=== PATIENT | female | born 1965 | race Caucasian/White ===

== ENCOUNTER 2016-10-08 09:52 | Inpatient (IN) | payer OTHER ==
[2016-10-08] VITALS (40 sets, daily range): BP systolic 88–300; BP diastolic 49–300; PULSE 110–168; TEMP 36.4–37; O2SAT 98–100; Ht 154.9 cm; Wt 44.9 kg
[~2016-10-08] VITALS: Ht 154.9 cm; Wt 44.9 kg
[~2016-10-08 09:52] MED LIST: ADVIN25/60 INH; ALBINS/ INH; ALBU1AER9 INH; ATRINSX IN; BRIM0.15 OPL; CALC200T PO; CRD30 PO; DORZ1SOL6 OPB; IPRA1AER2 INH; MIRT15TA3 PO; OXYC-106 PO; POTA20TA16 PO; PRED1SUS3 OPB
[2016-10-08] MEDS ORDERED: MAGNESIUM SULFATE 1GM / D5W 1 GM BAG IV STA (09:59)
[2016-10-08] MEDS ORDERED: ALBUT/IPRATROP 3MG/0.5MG NEB 3 ML VIAL INH ONE (10:00)
[2016-10-08] MEDS ORDERED: DILTIAZEM HCL 5 MG/ML 5 ML VIAL IV STA (10:01)
[2016-10-08] MEDS ORDERED: LEVAQUIN 750MG / 150ML D5W IV STA (10:08)
--- NOTE | 2016-10-08 10:18 | DIAGNOSTIC IMAGING REPORT ---
SINGLE VIEW CHEST CLINICAL HISTORY: Respiratory failure. FINDINGS: An AP, portable, upright chest radiograph is obtained. No prior studies are available for comparison at the time of dictation. The examination is degraded by portable technique and patient rotation. The cardiomediastinal silhouette is unremarkable. There is atherosclerotic calcification of the thoracic aorta. Advanced emphysema is identified and there is extensive interstitial thickening and nodularity. More focal airspace consolidation is identified in the left upper lung. Airspace opacities are also seen in the right lower lung. No large pleural effusion or pneumothorax is seen. The skeletal structures appear osteopenic. The bony thorax is grossly intact. The patient is cachectic. A nipple shadow projects over the right midlung. IMPRESSION: 1. Severe emphysema. 2. Focal airspace consolidation is seen in the left midlung, and there are patchy airspace opacities at the right lung base. The appearance suggests multifocal pneumonia. Clinical correlation will be required and radiographic follow-up to resolution is recommended. Electronically signed by: Colten Esqueda M.D. 10/08/2016 10:16 AM Dictated Date/Time: 10/08/2016 10:14 AM
--- NOTE | 2016-10-08 10:25 | EMERGENCY ROOM VISIT NOTE ---
History Report prepared by Duane: Elvira Paige Under the Supervision of: Dr. Alice Isidro M.D. First contact with patient: 09:59 Chief Complaint: RESPIRATORY DISTRESS Stated Complaint: RESPIRATORY History of Present Illness The patient is a 51 year old female who presents to the Emergency Room with complaints of persistent respiratory distress that began prior to arrival. Per the patient's , the patient is a current smoker of one pack per day. He notes that the patient has been a smoker since she was 15 years old. The patient's denies the patient ever having a previous [place], but notes that she has a history of COPD and MS. Per EMS the patient was given 2 albuterol nebulizer treatments, 1 DuoNeb, 125 mg of Solu-Medrol, and 200 cc of normal saline. The patient was placed on BiPAP upon arrival to the emergency department and given an hour long nebulizer treatment. The patient's notes that the patient has had several sick contacts recently, but denies her having any fever. He denies the patient wearing oxygen at home. The patient's notes that the patient has a history of hypertension and states that she is on medication for it. Source of History: spouse/significant other (), EMS Onset: prior to arrival Position: other (global) Quality: other (respiratory distress) Timing: other (persistent) Associated Symptoms: No fevers Review of Systems See HPI for pertinent positives & negatives. A total of 10 systems reviewed and were otherwise negative. Past Medical & Surgical Medical Problems: (1) Acute hypercapnic respiratory failure (2) Cardiomyopathy (3) Decubitus ulcer of back (4) History of COPD (5) HTN (hypertension) (6) Hypophosphatemia (7) Left maxillary sinus opacification (8) Multiple sclerosis (9) Prolonged Q-T interval on ECG (10) Protein-calorie malnutrition, moderate (11) Rectal mucosa prolapse (12) Respiratory acidosis Surgical Problems: (1) History of left hip replacement Family History No pertinent family history stated. Social History Smoking Status: Current Every Day Smoker Marital Status: Housing Status: lives with significant other Current/Historical Medications Scheduled Acetazolamide (Diamox), 500 MG PO DAILY Brimonidine Tartrate Oph (Alphagan P Oph), 1 DROP OPL BID Calcium Carbonate-Vitamin D (Oscal 500/200 D-3), 1 TAB PO DAILY Diltiazem HCl (Diltiazem HCl), 30 MG PO BID Dorzolamide Hcl-Timolol Maleat (Cosopt Oph), 1 DROP OPB BID Fluticasone Prop/Salmeterol (Advair Diskus 250/50 60 Dose), 1 PUFF INH BID Ipratropium-Albuterol (Combivent Respimat), 1 PUFFS INH QID Potassium Ext Rel (Klor-Con), 20 MEQ PO BID Prednisolone Acetate 1% Oph (Pred Forte 1% Oph), 1 DROP OPB BID Scheduled PRN Albuterol (Proair Hfa), 2 PUFFS INH Q4 PRN for SOB/Wheezing Albuterol Sulf (Proventil 0.083% 2.5MG/3ML), 2.5 MG INH Q4 PRN for Wheezing Ipratropium [place] (Atrovent 0.02% Soln), 2.5 ML IN QID PRN for SOB/Wheezing Oxycodone/Acetaminophen 10MG/325MG (Percocet 10MG/325MG), 1 TAB PO Q4 PRN for Pain Allergies Coded Allergies: No Known Allergies (Unverified , 02/12/16) Physical Exam Vital Signs Date Time Temp Pulse Resp B/P Pulse Ox O2 Delivery O2 Flow Rate FiO2 10/08/16 11:18 156 22 87 10/08/16 11:13 127/99 10/08/16 11:07 157 30 94 10/08/16 10:58 137/114 10/08/16 10:55 123/100 10/08/16 10:52 163 23 89 10/08/16 10:37 164 22 100 10/08/16 10:30 162 21 136/94 100 BiPAP 10/08/16 10:30 168 60 10/08/16 10:29 136/94 10/08/16 10:22 162 21 100 10/08/16 10:16 160 24 170/57 96 BiPAP 10/08/16 10:13 170/157 10/08/16 10:13 159 22 98 BiPAP 10/08/16 10:07 152 22 10/08/16 10:01 151/113 10/08/16 09:59 154 10/08/16 09:55 166 22 BiPAP/CPAP 100 10/08/16 09:55 165 22 176/156 93 BiPAP 10/08/16 09:55 166 100 Physical Exam Vital signs reviewed. General: Cachectic appearing female, in respiratory distress. Somnolent. Dusky in appearance. HEENT: No scleral icterus, PERRLA, neck supple. Atraumatic. Cardiovascular: Regular rate and rhythm, no extra sounds. Pulmonary: Diminished breath sounds throughout, wheezes. Abdomen: Soft, nontender, nondistended, positive bowel sounds. Musculoskeletal: Atraumatic, no peripheral edema. Neurologic: Patient awake alert and oriented x 3, full strength in all 4 extremities. Cranial nerves 2 through 12 grossly intact. Skin: Warm, dry, no rash Medical Decision & Procedures ER Provider Diagnostic Interpretation: X-ray results as stated below per interpretation by me and the radiologist: SINGLE VIEW CHEST CLINICAL HISTORY: Respiratory failure. FINDINGS: An AP, portable, upright chest radiograph is obtained. No prior studies are available for comparison at the time of dictation. The examination is degraded by portable technique and patient rotation. The cardiomediastinal silhouette is unremarkable. There is atherosclerotic calcification of the thoracic aorta. Advanced emphysema is identified and there is extensive interstitial thickening and nodularity. More focal airspace consolidation is identified in the left upper lung. Airspace opacities are also seen in the right lower lung. No large pleural effusion or pneumothorax is seen. The skeletal structures appear osteopenic. The bony thorax is grossly intact. The patient is cachectic. A nipple shadow projects over the right midlung. IMPRESSION: 1. Severe emphysema. 2. Focal airspace consolidation is seen in the left midlung, and there are patchy airspace opacities at the right lung base. The appearance suggests multifocal pneumonia. Clinical correlation will be required and radiographic follow-up to resolution is recommended. Electronically signed by: Colten Esqueda M.D. 10/08/2016 10:16 AM Dictated Date/Time: 10/08/2016 10:14 AM Laboratory Results Test 10/08/16 10:03 10/08/16 10:05 10/08/16 11:11 Bedside Lactic Acid Venous 2.09 mmol/L (0.90-1.70) Immature Granulocyte % (Auto) 0.3 % White Blood Count 15.11 K/uL (4.8-10.8) Red Blood Count 4.32 M/uL (4.2-5.4) Hemoglobin 14.2 g/dL (12.0-16.0) Hematocrit 43.0 % (37-47) Mean Corpuscular Volume 99.5 fL (80-100) Mean Corpuscular Hemoglobin 32.9 pg (25-34) Mean Corpuscular Hemoglobin Concent 33.0 g/dl (32-36) Platelet Count 565 K/uL (130-400) Mean Platelet Volume 9.1 fL (7.4-10.4) Neutrophils (%) (Auto) 73.0 % Lymphocytes (%) (Auto) 19.8 % Monocytes (%) (Auto) 6.6 % Eosinophils (%) (Auto) 0.1 % Basophils (%) (Auto) 0.2 % Neutrophils # (Auto) 11.04 K/uL (1.4-6.5) Lymphocytes # (Auto) 2.99 K/uL (1.2-3.4) Monocytes # (Auto) 0.99 K/uL (0.11-0.59) Eosinophils # (Auto) 0.02 K/uL (0-0.5) Basophils # (Auto) 0.03 K/uL (0-0.2) Immature Granulocyte # (Auto) 0.04 K/uL (0.00-0.02) Prothrombin Time 11.2 SECONDS (9.0-12.0) Prothromb Time International Ratio 1.0 (0.9-1.1) Direct Bilirubin < 0.1 mg/dl (0-0.2) Total Creatine Kinase 170 U/L (26-192) Bedside Chloride 107 mEq/L (101-112) Bedside Total CO2 31 mEq/l (24-31) Bedside Blood Urea Nitrogen 19 mg/dl (7-18) Bedside Creatinine 0.6 mg/dl (0.6-1.3) Bedside Glucose (other) 261 mg/dl (70-99) Bedside Ionized Calcium (Aury) 1.14 mmol/l (1.12-1.32) Laboratory results per my review. Medications Administered Medications (Trade) Dose Ordered Sig/Rajan Route Start Time Stop Time Status Last Admin Dose Admin Albuterol/ Ipratropium (Duoneb) 12 ml ONE ONCE INH 10/08/16 10:00 10/08/16 10:02 DC 10/08/16 09:55 12 ML Magnesium Sulfate (Magnesium Sulfate) 2 gm NOW STAT IV 10/08/16 09:59 10/08/16 10:02 DC 10/08/16 10:00 2 GM Diltiazem HCl (Cardizem Inj) 10 mg NOW STAT IV 10/08/16 10:01 10/08/16 10:02 DC 10/08/16 10:04 10 MG Levofloxacin (Levaquin / D5W) 750 mg NOW STAT IV 10/08/16 10:08 10/08/16 10:10 DC 10/08/16 10:25 750 MG Sodium Bicarbonate (Sodium Bicarbonate 8.4% Inj) 100 ml STK-MED ONCE IV 10/08/16 10:51 10/08/16 10:53 DC 10/08/16 10:51 100 ML Sodium Bicarbonate (Sodium Bicarbonate 8.4% Inj) 100 ml STK-MED ONCE IV 10/08/16 11:02 10/08/16 11:04 DC 10/08/16 11:02 100 ML Methylprednisolone Sodium Succinate (Solu-Medrol IV) 125 mg NOW STAT IV 10/08/16 11:19 10/08/16 11:25 DC 10/08/16 12:22 125 MG ECG Indication: SOB/dyspnea Rate (beats per minute): 156 Rhythm: sinus tachycardia Findings: ST depression (Anterolateral), no ectopy, other (poor quality baseline for interpretation, rightward axis) ED Course 0952: Past medical records reviewed. The patient was evaluated in room B1. A complete history and physical examination was performed. 0959: Ordered Magnesium Sulfate 2 gm IV, Duoneb 12 ml INH, Cardizem Inj 10 mg IV. 1000: I spoke to the patient's about care measures. He states that they never talked about her wishes, but he believes that she would want to be intubated. 1008: Ordered Levofloxacin 750 mg IV. 1026: I discussed the patients case with Dr. Mcfarland, Intensive Care. He is going to come to the emergency department to assist with placing the patient on ventilation. 1027: I reevaluated the patient and she is on BiPAP. I discussed the plan with the patients . 1031: Dr. Mcfarland, Intensive Care arrived in the emergency department at this time. 1035: The [facility]ist team is going to evaluate the patient for further treatment. 1038: I spoke to Dr. Mcfarland, Intensive Care about the patient. 1045: I discussed the patients case with Dr. Traylor, Primary Care. 1051: Ordered Sodium Bicarbonate 100 ml IV. 1102: Ordered Sodium Bicarbonate 100 ml IV. Medical Decision Differential diagnosis: Etiologies such as infections, reactive airway disease, pneumonia, pneumothorax , COPD, CHF, cardiac ischemia, pulmonary embolism, musculoskeletal, gastrointestinal, as well as others were entertained. This pt was evaluated and appeared to be in no distress. IV access was obtained by EMS. 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 Pt was placed on bipap. A continuous nebulizer was started through bipap. Pt was given magnesium IV. Pt received solu-medrol 125 mg IV en route. Pt was given IVF. CXR reveals patchy bilateral infiltrates , lactate is 2.09 and troponin is >8. Pt is positive for influenza A. Pt was medicated with IV levaquin. EKG reveals a sinus tachycardia, but no STEMI. ABG was obtained on arrival and pt was noted to be markedly acidotic and hypercapnic. A stat critical care consult with Dr Mcfarland was placed as emergent intubation was felt to be high risk and expert ventilation management would be needed. Family was notified that the pt was critically ill and condition is tenuous. Critical care was at the bedside to take over care. Consults Time Called: [phone] Consulting Physician: Dr. Mcfarland, Intensive Care Returned Call: [phone] I discussed the patients case with Dr. Mcfarland, Intensive Care. He is going to come to the emergency department to assist with placing the patient on ventilation. Additional Consults: Time Called: 1033 Consulted Physician: [facility]ist Team Returned Call: [phone] Additional Comments: The [facility] Hospitalist team is going to evaluate the patient for further treatment. Impression Primary Impression: Respiratory failure Additional Impressions: Elevated troponin COPD exacerbation Pneumonia CO2 narcosis Critical Care I have personally spent greater than 60 minutes of critical care time in the direct management of this patient. This includes bedside care, interpretation of diagnostic studies, and testing, discussion with consultants, patient, and family members, and other required patient management activities. This 60 minutes is in excess of all separately billable procedures. Scribe Attestation The scribe's documentation has been prepared under my direction and personally reviewed by me in its entirety. I confirm that the note above accurately reflects all work, treatment, procedures, and medical decision making performed by me. Departure Information Dispostion Being Evaluated By Hospitalist Referrals No Doctor, Assigned (PCP) Problem Qualifiers Primary Impression: Respiratory failure Chronicity: acute Respiratory failure complication: hypercapnia Qualified Codes: J96.02 - Acute respiratory failure with hypercapnia Additional Impressions: Pneumonia Pneumonia type: due to unspecified organism Laterality: bilateral
[2016-10-08] MEDS ORDERED: SODIUM BICARB 8.4% INJ 50 MEQ/50 ML SYR IV ONE ×3 (10:51→12:37)
[2016-10-08 11:15] LABS: MEAN PLATELET VOLUME 9.1 fL (7.4-10.4); PLATELET COUNT 565 K/uL (130-400)
[2016-10-08] MEDS ORDERED: METHYLPREDNISOLONE 125 MG VIAL IV STA (11:19)
[2016-10-08 11:23] LABS: PROTHROMBIN TIME (PATIENT) 11.2 SECONDS (9.0-12.0)
[2016-10-08 11:24] LABS: PARTIAL THROMBOPLASTIN RATIO 1.1
[2016-10-08 11:25] LABS: ALT/SGPT 30 U/L (12-78); AST/SGOT 42 U/L (15-37); BLOOD UREA NITROGEN 17 mg/dl (7-18); BUN/CREATININE RATIO 26.4 (10-20); CALCIUM 8.6 mg/dl (8.5-10.1); CARBON DIOXIDE 24 mmol/L (21-32); CHLORIDE 113 mmol/L (98-107); CREATININE 0.63 mg/dl (0.60-1.20); GLUCOSE 176 mg/dl (70-99); POTASSIUM 3.6 mmol/L (3.5-5.1); SODIUM 144 mmol/L (136-145)
[2016-10-08 11:29] LABS: MEAN CELL VOLUME 99.5 fL (80-100); MEAN CORPUSCULAR HEMOGLOBIN 32.9 pg (25-34); RED BLOOD COUNT 4.32 M/uL (4.2-5.4); WHITE BLOOD COUNT 15.11 K/uL (4.8-10.8)
[2016-10-08] MEDS ORDERED: [UNRECOGNIZED DRUG - MIXTURE] IV SCH (11:30)
[2016-10-08] MEDS ORDERED: NOREPINEPHRINE BITARTRATE 1 MG/ML 4 ML VIAL ONE ×2 (11:32→11:38)
[2016-10-08 11:39] LABS: ISTAT CREATININE 0.6 mg/dl (0.6-1.3); ISTAT HEMOGLOBIN 13.3 g/dl (12.0-16.0); ISTAT IONIZED CALCIUM 1.14 mmol/l (1.12-1.32)
[2016-10-08 11:39] LABS: ALKALINE PHOSPHATASE 110 U/L (45-117); CKMB/CK RATIO 3.5 (0-3.0)
[2016-10-08] MEDS ORDERED: NOREPINEPHRINE BIT INJ 8 MG in DEXTROSE 5% 500ML 500 ML IV PRN (11:45)
[2016-10-08 11:46] LABS: ISTAT CREATININE 0.5 mg/dl (0.6-1.3); ISTAT IONIZED CALCIUM 1.1 mmol/l (1.12-1.32)
[2016-10-08 11:46] LABS: ISTAT ARTERIAL BLOOD GAS HCO3 21 meq/L (19-24); ISTAT ARTERIAL BLOOD GAS PCO2 89 mmHg (35-46); ISTAT ARTERIAL BLOOD GAS PO2 > 420 mmHg (80-95); ISTAT ARTERIAL BLOOD GAS pH 6.99 (7.35-7.45); ISTAT CARBON DIOXIDE 24 mEq/l (24-31)
[2016-10-08 11:54] LABS: BASO % 0.2 %; BASO ABS # 0.03 K/uL (0-0.2); COMPLETE YES; EOS % 0.1 %; IG% 0.3 %; LYMPH % 19.8 %; LYMPH ABS # 2.99 K/uL (1.2-3.4); MONO % 6.6 %
[2016-10-08] MEDS: MIDAZOLAM 125MG/250ML D5W 250 ML IV PRN (12:02)
[2016-10-08] MEDS ORDERED: FENTANYL CITRATE INJ 50 MCG/1 ML 2 ML VIAL IV STA (12:02)
[2016-10-08 12:49] LABS: ARTERIAL BLD GAS O2 SATURATION 96.5 % (90-95); ARTERIAL BLOOD GAS BASE EXCESS 0.3 mEq/L (-9-1.8); ARTERIAL BLOOD GAS HCO3 34 mmol/L (19-24); ARTERIAL BLOOD GAS PO2 121 mm/Hg (80-95)
[2016-10-08 12:51] LABS: O2 ADMINISTRATION 60%
[2016-10-08] MEDS ORDERED: TERBUTALINE SULFATE 1 MG/ML VIAL SQ STA (13:08)
[2016-10-08 13:09] LABS: ARTERIAL BLOOD GAS pH 7.03 (7.35-7.45)
[2016-10-08] MEDS ORDERED: MAGNESIUM SULFATE 40GM / WTR 1000 ML IV SCH (13:15)
--- NOTE | 2016-10-08 13:34 | Critical Care Consultation ---
Critical Care Consultation Date of Consultation: Oct 08, 2016. Attending Physician: Sobia Akers M.D. Reason for Consultation: Acidosis History of Present Illness Juana Mak is a 51-year-old female with a history COPD, pulmonary nodules, hypertension, glaucoma, multiple sclerosis, cachexia, presented to the emergency department today via EMS after telling her "I need oxygen." states that she was in her normal health previously and is shocked by how quickly she has declined. Dr. Mcfarland was called by the emergency department for a patient on BiPAP with a pH of 6.9. We arrived and there was much family discussion on the resuscitation desires of this patient. Family decided to keep her full code and give her the best chance they could. Dr. Mcfarland spent a significant amount of time trying to normalize this patient's pH as much as possible prior to intubation. Patient received 2 amps of bicarbonate as well as a Negra drip, an alkalizing agent. Prior to intubation the patient was not oriented and could not be asked questions reliably. She was intubated using 1 mg of Versed and 10mg Vecuronium. Immediately after the ET tube was placed vecuronium was given. Patient tolerated intubation well , her blood pressures remained low but stable. While Levophed was hanging at bedside; the patient did not require any pressors. She underwent both central and arterial line placement in the right groin and then was transferred to the ICU. Family History Father's Hx is unknown Mother of [place] Social History Smoking Status: Current Every Day Smoker (1pack/day, since 15yo) Smokeless Tobacco Use: No Alcohol Use: none Marital Status: Housing Status: lives with significant other Allergies Coded Allergies: No Known Allergies (Unverified , 02/12/16) Home Medications Scheduled Acetazolamide (Diamox), 500 MG PO DAILY Brimonidine Tartrate Oph (Alphagan P Oph), 1 DROP OPL BID Calcium Carbonate-Vitamin D (Oscal 500/200 D-3), 1 TAB PO DAILY Diltiazem HCl (Diltiazem HCl), 30 MG PO BID Dorzolamide Hcl-Timolol Maleat (Cosopt Oph), 1 DROP OPB BID Fluticasone Prop/Salmeterol (Advair Diskus 250/50 60 Dose), 1 PUFF INH BID Ipratropium-Albuterol (Combivent Respimat), 1 PUFFS INH QID Potassium Ext Rel (Klor-Con), 20 MEQ PO BID Prednisolone Acetate 1% Oph (Pred Forte 1% Oph), 1 DROP OPB BID Scheduled PRN Albuterol (Proair Hfa), 2 PUFFS INH Q4 PRN for SOB/Wheezing Albuterol Sulf (Proventil 0.083% 2.5MG/3ML), 2.5 MG INH Q4 PRN for Wheezing Ipratropium [place] (Atrovent 0.02% Soln), 2.5 ML IN QID PRN for SOB/Wheezing Oxycodone/Acetaminophen 10MG/325MG (Percocet 10MG/325MG), 1 TAB PO Q4 PRN for Pain Current Inpatient Medications Current Inpatient Medications Medications (Trade) Dose Ordered Sig/Rajan Route Start Time Stop Time Status Last Admin Dose Admin Norepinephrine Bitartrate 8 mg/ Dextrose 508 ml @ 0 mls/min Q0M PRN IV 10/08/16 11:45 11/07/16 11:44 Midazolam HCl 250 ml @ 0 mls/hr Q0M PRN IV 10/08/16 12:00 11/07/16 11:59 10/08/16 12:02 4 MLS/HR Magnesium Sulfate (Magnesium Sulfate) 1,000 ml @ 50 mls/hr Q20H IV 10/08/16 13:15 11/07/16 13:14 Miscellaneous Information 1 ea 1 ea NOW STAT N/A 10/08/16 13:23 10/08/16 13:24 UNV Piperacillin Sod/ Tazobactam Sod/ Dextrose (Zosyn Iv/D5 100ml) 115 ml @ 230 mls/hr NOW ONCE IV 10/08/16 13:45 10/08/16 14:14 Review of Systems Could not be obtained secondary to patient's condition, sedation, and intubation. Physical Exam Date Time Temp Pulse Resp B/P Pulse Ox O2 Delivery O2 Flow Rate FiO2 10/08/16 12:58 126 95/64 99 Mechanical Ventilator 10/08/16 12:56 107/58 10/08/16 12:43 104/80 10/08/16 12:28 98/73 10/08/16 12:23 93/71 10/08/16 12:18 130 21 97 10/08/16 12:13 87/67 10/08/16 12:11 87/64 10/08/16 12:05 85/62 10/08/16 11:58 97/73 10/08/16 11:56 100/74 10/08/16 11:48 148 21 94/75 10/08/16 11:44 103/74 10/08/16 11:43 99/80 10/08/16 11:42 117/89 10/08/16 11:36 115/87 10/08/16 11:29 155 10/08/16 11:28 123/97 10/08/16 11:23 36.6 10/08/16 11:18 156 22 87 10/08/16 11:13 127/99 10/08/16 11:07 157 30 94 10/08/16 10:58 137/114 10/08/16 10:55 123/100 10/08/16 10:52 163 23 89 10/08/16 10:37 164 22 100 10/08/16 10:30 162 21 136/94 100 BiPAP 10/08/16 10:30 168 60 10/08/16 10:29 136/94 10/08/16 10:22 162 21 100 10/08/16 10:16 160 24 170/57 96 BiPAP 10/08/16 10:13 170/157 10/08/16 10:13 159 22 98 BiPAP 10/08/16 10:07 152 22 10/08/16 10:01 151/113 10/08/16 09:59 154 10/08/16 09:55 166 22 BiPAP/CPAP 100 10/08/16 09:55 165 22 176/156 93 BiPAP 10/08/16 09:55 166 100 Vital Signs - as noted Laboratory Data - as noted Physical Exam: General - Intubated, Cachectic Eyes -Pupils equal, no response to light, Left eye hazy ENT - Mucosa moist, no lesions or candidiasis Neck - Supple, trachea midline, no masses or lymphadenopathy, no JVD or bruits Lungs - No paradoxical chest wall movement, coarse to auscultation bilaterally, Rhonchi noted throughout, Wheezing note on upper right long, Crackles not noted Heart - Sinus Tachy, No murmur, rubs, clicks, or gallops appreciated Abdomen - no BS present, no bruits noted, tympanic to percussion, soft, nontender, Moderately distended, no organomegaly Extremities - No edema, pedal pulses intact Neuro - A&OX0 Strength: Could not be assessed Reflexes: Bicep, brachioradialis, patellar, and plantar absent CN:Pupils unresponsive to light,no facial asymmetry, uvula/tongue midline(prior to intubation) Laboratory Results Last 24 Hours Test 10/08/16 10:03 10/08/16 10:05 10/08/16 10:08 10/08/16 10:19 Bedside Lactic Acid Venous 2.09 mmol/L White Blood Count 15.11 K/uL Red Blood Count 4.32 M/uL Hemoglobin 14.2 g/dL Hematocrit 43.0 % Mean Corpuscular Volume 99.5 fL Mean Corpuscular Hemoglobin 32.9 pg Mean Corpuscular Hemoglobin Concent 33.0 g/dl Platelet Count 565 K/uL Mean Platelet Volume 9.1 fL Neutrophils (%) (Auto) 73.0 % Lymphocytes (%) (Auto) 19.8 % Monocytes (%) (Auto) 6.6 % Eosinophils (%) (Auto) 0.1 % Basophils (%) (Auto) 0.2 % Neutrophils # (Auto) 11.04 K/uL Lymphocytes # (Auto) 2.99 K/uL Monocytes # (Auto) 0.99 K/uL Eosinophils # (Auto) 0.02 K/uL Basophils # (Auto) 0.03 K/uL RDW Standard Deviation 49.4 fL RDW Coefficient of Variation 13.6 % Immature Granulocyte % (Auto) 0.3 % Immature Granulocyte # (Auto) 0.04 K/uL Prothrombin Time 11.2 SECONDS Prothromb Time International Ratio 1.0 Activated Partial Thromboplast Time 29.8 SECONDS Partial Thromboplastin Ratio 1.1 Sodium Level 144 mmol/L Potassium Level 3.6 mmol/L Chloride Level 113 mmol/L Carbon Dioxide Level 24 mmol/L Anion Gap 7.0 mmol/L 15.0 mmol/L Blood Urea Nitrogen 17 mg/dl Creatinine 0.63 mg/dl Estimated GFR () 122.1 Estimated GFR (Non- 105.3 BUN/Creatinine Ratio 26.4 Random Glucose 176 mg/dl Calcium Level 8.6 mg/dl Magnesium Level 2.0 mg/dl Total Bilirubin 0.1 mg/dl Direct Bilirubin < 0.1 mg/dl Aspartate Amino Transf (AST/SGOT) 42 U/L Alanine Aminotransferase (ALT/SGPT) 30 U/L Alkaline Phosphatase 110 U/L Total Creatine Kinase 170 U/L Creatine Kinase MB 6.0 ng/ml Creatine Kinase MB Ratio 3.5 Troponin I 8.260 ng/ml Total Protein 7.5 gm/dl Albumin 3.1 gm/dl Bedside Hemoglobin 16.0 g/dl Bedside Hematocrit 47 % Bedside Sodium 142 mEq/L Bedside Potassium 5.4 mEq/L Bedside Chloride 112 mEq/L Bedside Total CO2 21 mEq/l Bedside Blood Urea Nitrogen 19 mg/dl Bedside Creatinine 0.5 mg/dl Bedside Glucose (other) 163 mg/dl Bedside Ionized Calcium (Aury) 1.10 mmol/l Bedside Blood Gas pH (LAB) 6.99 Bedside Blood Gas pCO2 (LAB) 89 mmHg Bedside Blood Gas pO2 (LAB) > 420 mmHg Bedside Blood Gas HCO3 (LAB) 21 meq/L Bedside Blood Gas Total CO2 24 mEq/l Bedside Blood Gas Base Excess (LAB) -10.0 meq/L Bedside Blood Gas O2 Saturation 100.0 % Test 10/08/16 11:11 10/08/16 12:36 Bedside Hemoglobin 13.3 g/dl Bedside Hematocrit 39 % Bedside Sodium 148 mEq/L Bedside Potassium 3.9 mEq/L Bedside Chloride 107 mEq/L Bedside Total CO2 31 mEq/l Anion Gap 14.0 mmol/L Bedside Blood Urea Nitrogen 19 mg/dl Bedside Creatinine 0.6 mg/dl Bedside Glucose (other) 261 mg/dl Bedside Ionized Calcium (Aury) 1.14 mmol/l Arterial Blood pH 7.03 Arterial Blood Partial Pressure CO2 132 mmHg Arterial Blood Partial Pressure O2 121 mm/Hg Arterial Blood HCO3 34 mmol/L Arterial Blood Oxygen Saturation 96.5 % Arterial Blood Base Excess 0.3 mEq/L Arterial Blood Gas Delivery 60% Jatin Test UNK Diagnostic Results CHEST ONE VIEW PORTABLE CLINICAL HISTORY: Respiratory failure COMPARISON STUDY: 10/08/2016 FINDINGS: There is a nasogastric tube within the stomach. There is been interval placement of endotracheal tube. Tip is positioned 28 mm above the elidia. There are bilateral airspace opacities, consistent with pulmonary edema. Underlying chronic lung disease is suspected. There is a suspected trace left pleural effusion.[ IMPRESSION: 1. Interval placement of an endotracheal tube and nasogastric tube 2. Prominent edema pattern superimposed on chronic lung disease Electronically signed by: Angelito Kwong M.D. 10/08/2016 2:21 PM Dictated Date/Time: 10/08/2016 2:20 PM SINGLE VIEW CHEST CLINICAL HISTORY: Respiratory failure. FINDINGS: An AP, portable, upright chest radiograph is obtained. No prior studies are available for comparison at the time of dictation. The examination is degraded by portable technique and patient rotation. The cardiomediastinal silhouette is unremarkable. There is atherosclerotic calcification of the thoracic aorta. Advanced emphysema is identified and there is extensive interstitial thickening and nodularity. More focal airspace consolidation is identified in the left upper lung. Airspace opacities are also seen in the right lower lung. No large pleural effusion or pneumothorax is seen. The skeletal structures appear osteopenic. The bony thorax is grossly intact. The patient is cachectic. A nipple shadow projects over the right midlung. IMPRESSION: 1. Severe emphysema. 2. Focal airspace consolidation is seen in the left midlung, and there are patchy airspace opacities at the right lung base. The appearance suggests multifocal pneumonia. Clinical correlation will be required and radiographic follow-up to resolution is recommended. Electronically signed by: Colten Esqueda M.D. EKG reviewed 10/08/2016 at 0958 Sinus tachycardia with short MI Rightward axis ST and T-wave abnormalities, consider inferior ischemia Abnormal EKG QTC corrected 460 Assessment & Plan (1) Acute hypercapnic respiratory failure Likely multifactorial; infectious process on chest x-ray (pneumonia) versus viral versus COPD exacerbation CXR prior to intubation demonstrated severe emphysema, focal airspace consolidation in the left midlung, and patchy airspace opacities in the right lung base. Appearance suggests multifocal pneumonia. Sedation: Versed Titrate to RASS -2 Intubated 7.5 ET Tube, 23cm at the lip Pressure A/C, 25BPM, 40Insp; 0.60 Inspiratory time; 0 Peep; 1.0 Flow trigger; 60 % FIO2 Further Management per Dr. Mcfarland Chlorhexadine Mouth Care ordered HOB at 30* (2) Respiratory acidosis Received in ED: * 2Amps HCO3 * Negra dosed at 9ml/kg Currently intubated as above, respiration rate elevated to help blow off CO2 AGBs q4 or with changes (3) Pneumonia Lactic Acid: 2.09 WBC: 15.11 Temp: 36.6 CXR: Multilobar PNA Obtain Blood x2, Sputum Culture Trend Lactic Acid, Procalcitonin Continue Broad Spectrum Abx: * Doxycycline * Vancomycin * Zosyn (4) COPD exacerbation 1 dose of Terbutaline SQ 0.25 q 20minutes (Max 3 doses) Broad Spectrum Abx as noted under PNA Further Respiratory management per Dr. Mcfarland * Xopenex 4puffs QID * Mg Infusion * Terbutaline Sq * Theophylline Follow Mg Level q4hrs (5) Elevated troponin Dr. Cannon consulted: likely due to hypoxemia from acute illness Repeat EKG demonstrated ST depression in lateral leads ECHO Pending Trend troponin Monitor on telemetry (6) Cardiomyopathy / Kassandra consulter. Preliminarily looked at ECHO believe pt has EF of about 20%. Could be chronic unknown HF or Stress induced Cardiomyopathy Plans to hang Cardizem low dose drip and monitor closely if it helps. Will not hang dobutamine for potential complication of VTach. Further Recommendations per Dr. Krishnamurthy (7) Prolonged Q-T interval on ECG Dr. Cannon consulted: likely due to hypoxemia from acute illness D/C'd Levaquin Avoid QTc Prolonging Medications Repeat EKG in AM (8) Multiple sclerosis Follows with Dr. Fernandes Pain Management as out-pt; consider consult as pt improves Other Neuro: Currently no reflexes, did receive 10mg of Vecuronium Neuro checks per protocol Monitor clinically Opthalmology: Glaucoma Continue Home meds * Brimonidine Tartrate Oph 0.15% * Dorzolamide Hcl-Timolol Maleat 1 drop OPB BID Endo: No hx of DM [id number] Monitor BSGs per protocol : Cr: 0.63 Approx 2L of fluid in combine drips No additional Fluids with minimal EF Concentrate fluids where possible Zambrano in place Follow serial labs GI: Prophylaxis: Protonix in place NPO except meds Access: Right Femoral Triple Lumen Catheter Right Arterial Line Right 18g PIV Left 20 PIV CCT: 120 Minutes, not including billable procedures. Thank you for including us in the care of this patient. Please review Dr. Mcfarland's addendum for further recommendations. I have personally evaluated and examined this patient. I agree with assessment and plan of Mervin Dewitt PA-C. Delayed entry into patient chart. Patient with profound respiratory acidosis and severe COPD exacerbation. Required correction of acid-base prior to intubation. Patient initially had an auto PEEP of 11 and required steroids, bronchodilators, IV magnesium loading, subcutaneous terbutaline, and IV Aminophyllin. Initially I explained to the patient's family patient was very severe, appeared to be cachectic, and given a significant history of noncompliance with recommended pulmonary toilet, respiratory follow-up, and continued smoking with severe COPD whether the patient would want heroic interventions undertaken. After significant discussion by the and the patient's son was decided that the patient would want an attempt at heroic interventions at this time. I am concerned for multisystem organ failure given severe COPD and aren't, severe obstructive disease, elevated troponins and a possible stress cardiomyopathy in the setting of a positive influenza A with protein calorie malnutrition that the patient may have a very poor prognosis.
[2016-10-08] MEDS ORDERED: PIPERACILL/TAZOBAC IV 3.375 GM in DEXTROSE 5% 100ML IV ONE (13:45)
--- NOTE | 2016-10-08 14:24 | DIAGNOSTIC IMAGING REPORT ---
CHEST ONE VIEW PORTABLE CLINICAL HISTORY: Respiratory failure COMPARISON STUDY: 10/08/2016 FINDINGS: There is a nasogastric tube within the stomach. There is been interval placement of endotracheal tube. Tip is positioned 28 mm above the elidia. There are bilateral airspace opacities, consistent with pulmonary edema. Underlying chronic lung disease is suspected. There is a suspected trace left pleural effusion.[ IMPRESSION: 1. Interval placement of an endotracheal tube and nasogastric tube 2. Prominent edema pattern superimposed on chronic lung disease Electronically signed by: Angelito Kwong M.D. 10/08/2016 2:21 PM Dictated Date/Time: 10/08/2016 2:20 PM
[2016-10-08 14:43] LABS: URINE APPEARANCE CLEAR (CLEAR); URINE BILIRUBIN NEG (NEG); URINE COLOR YELLOW; URINE EPITHELIAL CELL AUTO >30 /lpf (0-5); URINE NITRITE NEG (NEG); URINE SPECIFIC GRAVITY 1.014 (1.000-1.030); UROBILINOGEN NEG (NEG)
[2016-10-08] MEDS ORDERED: DOXYCYCLINE HYCLATE 100 MG in DEXTROSE 5% 100ML IV ONE (14:45)
[2016-10-08] MEDS ORDERED: VANCOMYCIN CONSULT ACTIVE SCH (14:45)
[2016-10-08] MEDS ORDERED: LEVOFLOXACIN 500MG / D5W IV ONE (14:45)
[2016-10-08 14:47] LABS: MANUAL MICROSCOPIC REQUIRED? NO; REVIEW REQ? NO
[2016-10-08] MEDS ORDERED: ACET500C35 PO (14:49)
[2016-10-08] MEDS ORDERED: METOPROLOL TARTRATE 1 MG/ML VIAL IV STA (14:51)
[2016-10-08] MEDS ORDERED: DILTIAZEM BOLUS / DRIP IV STA (14:55)
[2016-10-08] MEDS ORDERED: PIPERACILL/TAZOBAC CONSULT ACTIVE SCH (15:00)
--- NOTE | 2016-10-08 15:03 | History and Physical ---
History & Physical Date & Time of Service: Oct 08, 2016 at 14:17 Chief Complaint: Shortness of Breath Primary Care Physician: Mich Vee M.D. History of Present Illness 51 year old female who presents to the ER with shortness of breath. History is unobtainable from the patient as she is currently intubated and sedated. Per ER documentation, patient presented to the ER in respiratory distress via EMS on BiPap Per patient's , she has had several sick contacts recently. Upon arrival to the ER, patient was found to be in respiratory distress and ABG showed respiratory acidosis. CXR showed a multifocal pneumonia. Patient was eventually intubated. She was treated with Levaquin, solu-medrol, and neb. She was also tachycardic in the 160s and was given Cardizem 10mg IV. Troponin is found to be 8. EKG shows more pronounced t-wave inversions inferiorly. Past Medical/Surgical History Medical Problems: (1) HTN (hypertension) Status: Chronic (2) Multiple sclerosis Status: Chronic Surgical Problems: (1) History of left hip replacement Status: Chronic Family History Hypertension FATHER Uterine leiomyoma MOTHER Social History Smoking Status: Current Every Day Smoker Alcohol Use: none Immunizations History of Influenza Vaccine: Yes Influenza Vaccine Date: Aug 22, 2012 History of Tetanus Vaccine?: Yes Tetanus Immunization Date: January 23, 2016 History of Pneumococcal: Yes Pneumococcal Date: Jul 07, 2015 Multi-Drug Resistant Organisms History of MDRO: No Allergies Coded Allergies: No Known Allergies (Unverified , 02/12/16) Home Medications Scheduled Acetazolamide (Diamox), 500 MG PO DAILY Brimonidine Tartrate Oph (Alphagan P Oph), 1 DROP OPL BID Calcium Carbonate-Vitamin D (Oscal 500/200 D-3), 1 TAB PO DAILY Diltiazem HCl (Diltiazem HCl), 30 MG PO BID Dorzolamide Hcl-Timolol Maleat (Cosopt Oph), 1 DROP OPB BID Fluticasone Prop/Salmeterol (Advair Diskus 250/50 60 Dose), 1 PUFF INH BID Ipratropium-Albuterol (Combivent Respimat), 1 PUFFS INH QID Potassium Ext Rel (Klor-Con), 20 MEQ PO BID Prednisolone Acetate 1% Oph (Pred Forte 1% Oph), 1 DROP OPB BID Scheduled PRN Albuterol (Proair Hfa), 2 PUFFS INH Q4 PRN for SOB/Wheezing Albuterol Sulf (Proventil 0.083% 2.5MG/3ML), 2.5 MG INH Q4 PRN for Wheezing Ipratropium Rochert (Atrovent 0.02% Soln), 2.5 ML IN QID PRN for SOB/Wheezing Oxycodone/Acetaminophen 10MG/325MG (Percocet 10MG/325MG), 1 TAB PO Q4 PRN for Pain Review of Systems unable to be completed with patient as she is currently intubated and sedated Physical Exam Vital Signs Date Time Temp Pulse Resp B/P Pulse Ox O2 Delivery O2 Flow Rate FiO2 10/08/16 12:58 126 95/64 99 Mechanical Ventilator 10/08/16 12:56 107/58 10/08/16 12:43 104/80 10/08/16 12:28 98/73 10/08/16 12:23 93/71 10/08/16 12:18 130 21 97 10/08/16 12:13 87/67 10/08/16 12:11 87/64 10/08/16 12:05 85/62 10/08/16 11:58 97/73 10/08/16 11:56 100/74 10/08/16 11:48 148 21 94/75 10/08/16 11:44 103/74 10/08/16 11:43 99/80 10/08/16 11:42 117/89 10/08/16 11:36 115/87 10/08/16 11:29 155 10/08/16 11:28 123/97 10/08/16 11:23 36.6 10/08/16 11:18 156 22 87 10/08/16 11:13 127/99 10/08/16 11:07 157 30 94 10/08/16 10:58 137/114 10/08/16 10:55 123/100 10/08/16 10:52 163 23 89 10/08/16 10:37 164 22 100 10/08/16 10:30 162 21 136/94 100 BiPAP 10/08/16 10:30 168 60 10/08/16 10:29 136/94 10/08/16 10:22 162 21 100 10/08/16 10:16 160 24 170/57 96 BiPAP 10/08/16 10:13 170/157 10/08/16 10:13 159 22 98 BiPAP 10/08/16 10:07 152 22 10/08/16 10:01 151/113 10/08/16 09:59 154 10/08/16 09:55 166 22 BiPAP/CPAP 100 10/08/16 09:55 165 22 176/156 93 BiPAP 10/08/16 09:55 166 100 General Appearance: no apparent distress, + pertinent finding (intubated and sedated) Head: normocephalic Eyes: normal inspection Neck: supple, no JVD Respiratory/Chest: + rhonchi, + pertinent finding (intubated) Cardiovascular: regular rate, rhythm, no edema, normal peripheral pulses Abdomen/GI: + abnormal bowel sounds (hypoactive), + distended (semi firm) Extremities/Musculoskelatal: normal inspection, no calf tenderness Neurologic/Psych: + pertinent finding (sedated) Skin: normal color, warm/dry Diagnostics Laboratory Results Results Past 24 Hours Test 10/08/16 10:03 10/08/16 10:05 10/08/16 10:08 10/08/16 10:19 Range/Units Bedside Lactic Acid Venous 2.09 0.90-1.70 mmol/L White Blood Count 15.11 4.8-10.8 K/uL Red Blood Count 4.32 4.2-5.4 M/uL Hemoglobin 14.2 12.0-16.0 g/dL Hematocrit 43.0 37-47 % Mean Corpuscular Volume 99.5 80-100 fL Mean Corpuscular Hemoglobin 32.9 25-34 pg Mean Corpuscular Hemoglobin Concent 33.0 32-36 g/dl Platelet Count 565 130-400 K/uL Mean Platelet Volume 9.1 7.4-10.4 fL Neutrophils (%) (Auto) 73.0 % Lymphocytes (%) (Auto) 19.8 % Monocytes (%) (Auto) 6.6 % Eosinophils (%) (Auto) 0.1 % Basophils (%) (Auto) 0.2 % Neutrophils # (Auto) 11.04 1.4-6.5 K/uL Lymphocytes # (Auto) 2.99 1.2-3.4 K/uL Monocytes # (Auto) 0.99 0.11-0.59 K/uL Eosinophils # (Auto) 0.02 0-0.5 K/uL Basophils # (Auto) 0.03 0-0.2 K/uL RDW Standard Deviation 49.4 36.4-46.3 fL RDW Coefficient of Variation 13.6 11.5-14.5 % Immature Granulocyte % (Auto) 0.3 % Immature Granulocyte # (Auto) 0.04 0.00-0.02 K/uL Prothrombin Time 11.2 9.0-12.0 SECONDS Prothromb Time International Ratio 1.0 0.9-1.1 Activated Partial Thromboplast Time 29.8 21.0-31.0 SECONDS Partial Thromboplastin Ratio 1.1 Sodium Level 144 136-145 mmol/L Potassium Level 3.6 3.5-5.1 mmol/L Chloride Level 113 98-107 mmol/L Carbon Dioxide Level 24 21-32 mmol/L Anion Gap 7.0 15.0 16-25 mmol/L Blood Urea Nitrogen 17 7-18 mg/dl Creatinine 0.63 0.60-1.20 mg/dl Estimated GFR () 122.1 Estimated GFR (Non- 105.3 BUN/Creatinine Ratio 26.4 10-20 Random Glucose 176 70-99 mg/dl Calcium Level 8.6 8.5-10.1 mg/dl Magnesium Level 2.0 1.8-2.4 mg/dl Total Bilirubin 0.1 0.2-1 mg/dl Direct Bilirubin < 0.1 0-0.2 mg/dl Aspartate Amino Transf (AST/SGOT) 42 15-37 U/L Alanine Aminotransferase (ALT/SGPT) 30 12-78 U/L Alkaline Phosphatase 110 45-117 U/L Total Creatine Kinase 170 26-192 U/L Creatine Kinase MB 6.0 0.5-3.6 ng/ml Creatine Kinase MB Ratio 3.5 0-3.0 Troponin I 8.260 0-0.045 ng/ml Total Protein 7.5 6.4-8.2 gm/dl Albumin 3.1 3.4-5.0 gm/dl Bedside Hemoglobin 16.0 12.0-16.0 g/dl Bedside Hematocrit 47 37-47 % Bedside Sodium 142 135-144 mEq/L Bedside Potassium 5.4 3.3-5.0 mEq/L Bedside Chloride 112 101-112 mEq/L Bedside Total CO2 21 24-31 mEq/l Bedside Blood Urea Nitrogen 19 7-18 mg/dl Bedside Creatinine 0.5 0.6-1.3 mg/dl Bedside Glucose (other) 163 70-99 mg/dl Bedside Ionized Calcium (Aury) 1.10 1.12-1.32 mmol/l Bedside Blood Gas pH (LAB) 6.99 7.35-7.45 Bedside Blood Gas pCO2 (LAB) 89 35-46 mmHg Bedside Blood Gas pO2 (LAB) > 420 80-95 mmHg Bedside Blood Gas HCO3 (LAB) 21 19-24 meq/L Bedside Blood Gas Total CO2 24 24-31 mEq/l Bedside Blood Gas Base Excess (LAB) -10.0 -9-1.8 meq/L Bedside Blood Gas O2 Saturation 100.0 90-95 % Test 10/08/16 11:11 10/08/16 12:36 10/08/16 13:35 10/08/16 13:45 Range/Units Bedside Hemoglobin 13.3 12.0-16.0 g/dl Bedside Hematocrit 39 37-47 % Bedside Sodium 148 135-144 mEq/L Bedside Potassium 3.9 3.3-5.0 mEq/L Bedside Chloride 107 101-112 mEq/L Bedside Total CO2 31 24-31 mEq/l Anion Gap 14.0 16-25 mmol/L Bedside Blood Urea Nitrogen 19 7-18 mg/dl Bedside Creatinine 0.6 0.6-1.3 mg/dl Bedside Glucose (other) 261 70-99 mg/dl Bedside Ionized Calcium (Aury) 1.14 1.12-1.32 mmol/l Arterial Blood pH 7.03 7.35-7.45 Arterial Blood Partial Pressure CO2 132 35-46 mmHg Arterial Blood Partial Pressure O2 121 80-95 mm/Hg Arterial Blood HCO3 34 19-24 mmol/L Arterial Blood Oxygen Saturation 96.5 90-95 % Arterial Blood Base Excess 0.3 -9-1.8 mEq/L Arterial Blood Gas Delivery 60% Jatin Test UNK POS Microbiology Results 10/08/16 Blood Culture, Received Pending 10/08/16 Blood Culture, Received Pending 10/08/16 MRSA DNA Surveillance Screen, Received Pending Diagnostic Radiology CXR IMPRESSION: 1. Severe emphysema. 2. Focal airspace consolidation is seen in the left midlung, and there are patchy airspace opacities at the right lung base. The appearance suggests multifocal pneumonia. Clinical correlation will be required and radiographic follow-up to resolution is recommended. Impression Assessment and Plan ACUTE RESPIRATORY FAILURE DUE TO COPD EXACERBATION AND PNEUMONIA, SEVERE SEPSIS - admit to ICU - presenting with respiratory distress and respiratory acidosis on ABG, s/p intubation in ED - also with tachycardia, leukocytosis, and elevated lactic acid - CXR showing multifocal pneumonia; s/p Levaquin in the ED, will start Vanco, Zosyn, and Doxy due to prolonged QTC - patient currently receiving adequate IVF through antibiotics and other drips - recheck lactic acid in 6 hours - blood, sputum, and urine cultures - further management as per chute worker ELEVATED TROPONIN - no reports of chest pain per family - suspect demand ischemia from acute illness - EKG shows more pronounced t-wave inversions inferiorly - initial troponin 8, will continue to trend - echo ordered - cardio consult, input appreciated HTN - on diltiazem at home - BP on arrival was elevated, however now borderline low, likely due to drugs/ sedatives received for intubation DVT PROPHYLAXIS - SQ Heparin DISPO - In my clinical judgment this beneficiary meets acute admission criteria, established by [facility], that includes being hospitalized through two midnights. Attending Note: Patient is a 51 Yr old female with PMH of Multiple sclerosis, HTN, COPD, Tobacco use presents with acute respiratory failure. Patient is intubated and sedated while ED. Most of the information is obtained from the chart. CXR is consistent with severe emphysematous changes and Multilobar pneumonia. Per family patient was found to be coughing which started yesterday and woke up with SOB this morning. She was found to have severe respiratory acidosis with PH of 6.9 and PCO2 in 100s. Her troponin was elevated at 8.2. EKG showed sinus tachycardia with ST -T wave changes. Physical Exam: Vitals signs as noted above General; Currently sedated and intubated, ill appearing, thin, fragile HEENT:NC/AT, Intubated Neck: No JVD CVS: S1, S2, tachycardia, no murmur Lungs:Decreased breath sounds, + ronchi Abd: Soft, protuberant, BS present Neuro: currently sedated and intubated Ext:No cyanosis, clubbing, edema Skin: warm, intact Acute hypercapnic respiratory acidosis/Sepsis Secondary to COPD exacerbation and multilobar pneumonia Currently sedated and intubated Vent support per News Camera Operator Start broad spectrum IV antibiotics [place] cultures bronchodilators, glucocorticoids Appreciate News Camera Operator help Elevated Troponin: ECHO:EF of 20% Likely stress induced cardiomyopathy Cardiology consulted Trend troponin Agree with assessment and plan of Shelly Neal PAGEANT DIRECTOR as above. Further management per ICU News Camera Operator. VTE Prophylaxis VTE Risk Assessment Done? Y/N: Yes Risk Level: Moderate
--- NOTE | 2016-10-08 15:05 | Pharmacy Progress Note ---
Pharmacy Antibiotic Consult Date of Service: Oct 08, 2016. Pharmacy Dosing Scope Pharmacy is consulted to initiate IV VANCOMYCIN and ZOSYN therapy, order appropriate labs and adjust drug dose/frequency. Subjective The patient is a 51 year old female admitted on Oct 08, 2016 at 11:22 for acute hypercarbic respiratory failure, possible sepsis from a pulmonary source Objective Weight (Kilograms): 34.800 Lab Results (24hrs): Laboratory Tests Test 10/08/16 10:05 BUN/Creatinine Ratio 26.4 Blood Urea Nitrogen 17 mg/dl Creatinine 0.63 mg/dl White Blood Count 15.11 K/uL Red Blood Count 4.32 M/uL Hemoglobin 14.2 g/dL Hematocrit 43.0 % Mean Corpuscular Volume 99.5 fL Mean Corpuscular Hemoglobin 32.9 pg Mean Corpuscular Hemoglobin Concent 33.0 g/dl Platelet Count 565 K/uL Mean Platelet Volume 9.1 fL Neutrophils (%) (Auto) 73.0 % Lymphocytes (%) (Auto) 19.8 % Monocytes (%) (Auto) 6.6 % Eosinophils (%) (Auto) 0.1 % Basophils (%) (Auto) 0.2 % Neutrophils # (Auto) 11.04 K/uL Lymphocytes # (Auto) 2.99 K/uL Monocytes # (Auto) 0.99 K/uL Eosinophils # (Auto) 0.02 K/uL Basophils # (Auto) 0.03 K/uL Micro Results: Blood and urine cx's drawn Influenza PCR pending MRSA nasal swab pending Assessment & Plan * Patient admitted with acute respiratory failure requiring intubation * Broad spectrum ABX therapy started for sepsis - possible PNX * Pt has prolonged Qt --> Levofloxacin d/c'd and changed to doxycycline, empiric abx = Vancomycin + Zosyn + Doxy * Vasopressors have been ordered * Estimating true renal fxn will be difficult given small body habitus and cachexia as predictive GFR and CrCl equations that utilize SCr less reliable VANCOMYCIN * 750mg loading dose (~21mg/kg) IV x 1 to quickly achieve therapeutic peak * maintenance dose: 550mg IV Q 10 hrs * goal trough 15-20mcg/mL for sepsis/pulm infxn * eGFR ~100cc/hr - but truly difficult to estimate * p'kinetic estimates: Vd 0.7L/kg; half-life ~8-12 hrs; Km 0.087 hr-1 ZOSYN * 3.375gm load over 30min x 1; then 3.375gm ext infusion over 4 hrs IV Q 8 hrs ( smaller dose used due to small size) Pharmacy will continue to follow and will adjust dose/frequency as necessary. Thank you
[2016-10-08] MEDS ORDERED: DILTIAZEM HCL INJ 125 MG in DEXTROSE 5% 100ML IV PRN (15:15)
[2016-10-08] MEDS ORDERED: TERBUTALINE SULFATE 1 MG/ML VIAL SQ ONE (15:15)
[2016-10-08] MEDS ORDERED: OSELTAMIVIR PHOSPHATE SUSP 75 MG/12.5 ML UDP PO ONE (15:29)
[2016-10-08] MEDS ORDERED: PERFLUTREN LIPID MICROSPHERE (DEFINITY) IV ONE (15:34)
--- NOTE | 2016-10-08 15:43 | CARDIOLOGY CONSULTATION ---
DATE OF CONSULTATION: 10/08/2016 DATE OF CONSULTATION: 10/08/2016. HISTORY OF PRESENT ILLNESS: Madison Mak is a 51-year-old female seen in cardiology consultation per the request of Shelly Neal PA-C for evaluation of respiratory failure, elevated troponin. The patient does not have a previously established cardiology relationship. She has a history of multiple sclerosis as well as COPD. Apparently, she has been a cigarette smoker since age 15. History is obtained from her chart as well as interview of her relatives. Apparently her currently has a respiratory illness with cough and cold symptoms. Last evening the patient was first noted to have symptoms of coughing and she was splinting herself in the abdominal area with her arms when she was coughing at approximately 9:00 last night. She made it through the night uneventfully, and this morning she apparently woke up and turned to her and states that she needed oxygen. EMS was subsequently summoned and the patient was taken to the Emergency Department. She was placed on BiPAP and was found to have a profound respiratory acidosis with a pH of 6.9. She was seen on an urgent basis by critical care medicine and underwent endotracheal intubation in the Emergency Department. She is currently on mechanical ventilation with an FIO2 of 60% and she has received sodium bicarbonate as well as IV alkalinization agent. Cardiology has been consulted as on admission labs she was found to have an elevated troponin I of 8.26 ng/mL with normal CPK and CK-MB of 6.0. Despite having been intubated for approximately 3 hours she continues to have a profound respiratory acidosis with pCO2 in excess of 100 mmHg and pH of around 7. Her initial chest x-ray performed in the Emergency Room revealed evidence of severe underlying emphysema. The second chest x-ray reveals some evidence of interstitial edema in addition to emphysema. Her initial EKG performed today at 9:59 a.m. revealed sinus tachycardia at 156 beats per minute. There is significant baseline artifact, and STs cannot be interpreted. A repeat EKG performed at the bedside per my request at 1439 revealed sinus tachycardia at 125 beats per minute with rightward axis and mild ST segment depression noted in the anterior and anteroseptal leads from V1-V4 suggestive of subendocardial ischemia. PAST MEDICAL HISTORY: 1. COPD. 2. Longstanding cigarette smoking. 3. Pulmonary nodules. 4. Hypertension. 5. Glaucoma. 6. Multiple sclerosis. 7. Chronic cachexia. PAST SURGICAL HISTORY: Unobtainable. FAMILY HISTORY: Father's history is unknown, mother of cancer, details unknown. SOCIAL HISTORY: The patient is a current everyday smoker 1 pack per day since age 15. She is and lives with her spouse and son. ALLERGIES: No known drug allergies. HOME MEDICATIONS: Reviewed including Alphagan ophthalmologic ointment b.i.d., calcium carbonate Vitamin D 1 tablet by mouth daily, diltiazem 30 mg by mouth b.i.d., Cosopt ophthalmic drop 1 drop b.i.d., Advair Diskus 250/50 one puff inhaled b.i.d., Combivent 1 puff inhaled q.i.d., Remeron 1 tablet by mouth daily at bedtime, potassium chloride 20 mEq by mouth 2 times per day, Pred Forte 1 drop by mouth q.i.d. As needed medications include albuterol and Atrovent nebulizers as well as oxycodone/acetaminophen 1 tablet every 4 hours as needed for pain. COMPREHENSIVE REVIEW OF SYSTEMS: Unobtainable as she is sedated on the ventilator. PHYSICAL EXAMINATION: VITAL SIGNS: Temperature afebrile at 36.6. Heart rate 125. Blood pressure currently 107/55 by arterial line. APPEARANCE: Critically ill in appearance. NECK: No bruits. CARDIOVASCULAR: Regular rhythm, no murmurs. LUNGS: Decreased breath sounds at bases bilaterally. ABDOMEN: Soft, nontender. EXTREMITIES: No edema, chronic peripheral cachexia noted regarding the musculature of her arms and legs bilaterally. DIAGNOSTIC DATA: EKG as noted above. LABORATORY DATA: WBC 15.11, hemoglobin 14.2, platelet count 556. Sodium 144, potassium 3.6, chloride 113, BUN 17, creatinine 0.63. CPK 170. MB 6.0. Troponin 8.26, random cortisol is pending. Rapid influenza screen is pending. Blood cultures pending. FINAL IMPRESSION: A 51-year-old female. 1. Ventilator dependent respiratory failure with known chronic obstructive pulmonary disease, perhaps underlying viral or bacterial respiratory infection. 2. EKG evidence of subendocardial ischemia with resultant troponin elevation, sinus tachycardia as noted due to her underlying respiratory insufficiency. 3. Resultant profound respiratory acidosis due to #1. DISCUSSION AND PLAN: 1. Critical care team is working to stabilize her from an acidemia standpoint and respiratory standpoint. I think her troponin is likely due to demand based myocardial necrosis. An echocardiogram has been requested and is going to be performed stat at the bedside to exclude underlying cardiomyopathy and to evaluate for wall motion abnormalities. 2. We discussed starting metoprolol intravenously to assist with reducing myocardial workload by reducing her heart rate, however there was concern that this may provoke bronchospasm in a patient who we anticipate is very sensitive from bronchospasm standpoint. Will instead avoid beta vivi and start low dose diltiazem which the patient tolerates as an outpatient. Further recommendations will be forthcoming. MTDD
[2016-10-08] MEDS ORDERED: VANCOMYCIN INJ 750 MG in SODIUM CHLORIDE 0.9% 250ML 250 ML IV ONE (15:45)
[2016-10-08] MEDS ORDERED: [UNRECOGNIZED DRUG - OTHER] IV STA (16:00)
[2016-10-08] MEDS ORDERED: DEXTROSE 5% IV ONE (16:00)
[2016-10-08] MEDS ORDERED: DRIP IV STA (16:00)
[2016-10-08] MEDS ORDERED: AMINOPHYLLINE IV ONE (16:00)
[2016-10-08] MEDS ORDERED: INFLUENZA VIRUS QUAD VACCINE 0.5 ML SYR IM. ONE (16:15)
[2016-10-08] MEDS ORDERED: INFLUENZA ADMINISTRATION CHARGE ONE (16:15)
[2016-10-08] MEDS ORDERED: PNEUMOCOCCAL ADMINISTRATION CHARGE ONE (16:15)
[2016-10-08] MEDS ORDERED: PNEUMOCOCCAL POLYSACCHARIDES 25 MCG/0.5 ML VIAL/SYR IM. ONE (16:15)
[2016-10-08] MEDS ORDERED: DEXTROSE 5% IV PRN (16:30)
[2016-10-08] MEDS ORDERED: AMINOPHYLLINE IV PRN (16:30)
[2016-10-08] MEDS ORDERED: OSELTAMIVIR PHOSPHATE 6 MG/ML SUSP PO ONE (16:30)
[2016-10-08 16:36] LABS: INFLUENZA B PCR Neg for Influ B (NEG)
[2016-10-08 16:38] LABS: INFLUENZA A PCR POS for Influ A (NEG)
[2016-10-08 16:46] LABS: MAGNESIUM 4.1 mg/dl (1.8-2.4)
--- NOTE | 2016-10-08 16:52 | ECHOCARDIOGRAM REPORT ---
*NOTICE TO RECEIVING LIBERTARIAN AGENCY This information is strictly Confidential and protected under [place] law. [place] law prohibits you from making any further disclosure of this information unless further disclosure is expressly permitted by the written consent of the person to whom it pertains or is authorized by law. A general authorization for the release of medical or other information is not sufficient for this purpose. Hospital accepts no responsibility if the information is made available to any other person, INCLUDING THE PATIENT. Interpretation Summary * Name: SALVADOR JIMENES Study Date: 10/08/2016 03:04 PM BP: 111/59 mmHg * Patient Location: 108 HR: 124 * : 1965 (M/d/yyyy) Gender: Female Height: 50 in * Age: 51 yrs Ethnicity: CA Weight: 76 lb * Ordering Physician: Shelly Neal CRNP * Performed By: Natalia Ureña RDCS * * Reason For Study: Elevated Troponin * BSA: 1.1 m2 * -- Conclusions -- * The study was performed on and urgent basis in the ICU, Bed 108 due to ventilator dependent respiratory failure, and elevted troponin I. * Sinus tachycardia at 125 bpm was present during the echocardiogram study. * There is diffuse left ventricular hypokinesis to akinesis at the mid and apical levels with comparative sparing of the basal segments. * Left ventricular systolic function is severely reduced. * The qualitative left ventricular Ejection Fraction = 20-25%. * The right ventricle is normal in size and function. * There is mild tricuspid regurgitation. * The calculated pulmonary artery systolic pressure is normal, 35 mm Hg. * There is no evidence of atrial septal defect, but resolution does not allow assessment for a patent foramen ovale. * Compared to the prior study dated 07/04/15, there has been and interval decline in the LV systolic function. 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 Procedure Details * A complete two-dimensional transthoracic echocardiogram was performed (2D, M-mode, Doppler and color flow Doppler). * A contrast injection of Definity was performed to improve assessment for apical thrombus. * Contrast site: right upper thigh. * One vial of Definity ultrasound contrast was diluted in normal saline to a total volume of 10 ml. A total of '2' ml of solution was administered during imaging. * Lot # [id number] of Definity utilized for procedure. * Expiration date . * The attending nurse who injected the contrast agent was Marquita Dixon RN. Left Ventricle * The left ventricle is normal in size. * There is normal left ventricular wall thickness. * Left ventricular systolic function is severely reduced. * Ejection Fraction = 20-25%. * There is diffuse left ventricular hypokinesis to akinesis at the mid and apical levels with comparative sparing of the basal segments. Right Ventricle * The right ventricle is normal in size and function. Atria * The left atrial size is normal. * Right atrial size is normal. * Chiari network (normal variant) is noted. * There is no evidence of atrial septal defect, but resolution does not allow assessment for a patent foramen ovale. Mitral Valve * The mitral valve is normal. * There is no mitral valve stenosis. * Significant mitral regurgitation is absent. Tricuspid Valve * The tricuspid valve is normal. * There is no tricuspid stenosis. * There is mild tricuspid regurgitation. * The calculated pulmonary artery systolic pressure is normal, 35 mm Hg. Aortic Valve * The aortic valve is trileaflet. * Aortic stenosis is absent. * There is no significant aortic regurgitation. Pulmonic Valve * The pulmonary valve is not well seen, but the Doppler examination is normal without significant regurgitation or stenosis. Great Vessels * The aortic root and proximal ascending aorta are normal sized. Pericardium/Pleural * There is no pericardial effusion. * Mild ascites is noted surrounding the liver. Great Vessels * Normal inferior vena cava diameter and respiratory variation suggests normal central venous pressure. * Normal inferior vena cava size and collapsability with sniff indicates a normal right atrial pressure of 3 mmHg Left Ventricular Diastolic Function * The LV diastolic function cannot be graded due to the presence of the tachycardia, but based on the severe LV systolic funciton, the diastolic function is likely abnormal. MMode 2D Measurements and Calculations IVSd 0.98 cm IVSs 1.3 cm LVIDd 4.2 cm LVIDs 3.3 cm LVPWd 0.94 cm LVPWs 1.3 cm IVS/LVPW 1.0 FS 21.5 % EDV(Teich) 77.1 ml ESV(Teich) 43.2 ml EF(Teich) 44.0 % EDV(cubed) 72.4 ml ESV(cubed) 35.0 ml EF(cubed) 51.7 % % IVS thick 29.6 % % LVPW thick 36.7 % LV mass(C)d 127.8 grams LV mass(C)dI 117.9 grams/m\S\2 LV mass(C)s 135.7 grams LV mass(C)sI 125.2 grams/m\S\2 SV(Teich) 34.0 ml SI(Teich) 31.3 ml/m\S\2 SV(cubed) 37.4 ml SI(cubed) 34.5 ml/m\S\2 EPSS 2.3 cm Ao root diam 2.5 cm Ao root area 5.0 cm\S\2 ACS 1.3 cm LA dimension 3.0 cm LA/Ao 1.2 LVAd ap4 24.2 cm\S\2 LVLd ap4 6.5 cm EDV(MOD-sp4) 75.2 ml EDV(sp4-el) 76.2 ml LVAs ap4 19.6 cm\S\2 LVLs ap4 5.8 cm ESV(MOD-sp4) 55.9 ml ESV(sp4-el) 55.7 ml EF(MOD-sp4) 25.7 % EF(sp4-el) 26.9 % LVAd ap2 19.5 cm\S\2 LVLd ap2 6.0 cm EDV(MOD-sp2) 51.5 ml EDV(sp2-el) 53.4 ml LVAs ap2 15.6 cm\S\2 LVLs ap2 5.7 cm ESV(MOD-sp2) 34.5 ml ESV(sp2-el) 36.4 ml EF(MOD-sp2) 33.0 % EF(sp2-el) 31.7 % LVLd %diff -7.77 % EDV(MOD-bp) 62.2 ml LVLs %diff -2.67 % ESV(MOD-bp) 43.6 ml EF(MOD-bp) 29.9 % SV(MOD-sp4) 19.3 ml SI(MOD-sp4) 17.8 ml/m\S\2 SV(MOD-sp2) 17.0 ml SI(MOD-sp2) 15.7 ml/m\S\2 SV(MOD-bp) 18.6 ml SI(MOD-bp) 17.2 ml/m\S\2 SV(sp4-el) 20.5 ml SI(sp4-el) 18.9 ml/m\S\2 SV(sp2-el) 16.9 ml SI(sp2-el) 15.6 ml/m\S\2 Doppler Measurements and Calculations Ao V2 max 99.9 cm/sec Ao max PG 4.0 mmHg Ao max PG (full) 2.0 mmHg LV V1 max PG 2.0 mmHg LV V1 max 71.1 cm/sec PA V2 max 90.1 cm/sec PA max PG 3.2 mmHg TR max aiden 281.1 cm/sec
--- NOTE | 2016-10-08 16:56 | Cardiology Progress Note ---
Cardiology Progress Note Pt test positive for influenza A. Echo compatible with stress induced cardiomyopathy, LVEF 20-25%, with history of normal LVEF in 2015.
[2016-10-08] MEDS: LEValbuterol HFA 15GM INHALER INH SCH ×2 (17:25→20:48)
[2016-10-08 20:40] LABS: BUN/CREATININE RATIO 20.9 (10-20); CREATININE 0.64 mg/dl (0.60-1.20); MAGNESIUM 4.7 mg/dl (1.8-2.4)
[2016-10-08 20:44] LABS: ALB/GLOB RATIO 0.6 (0.9-2)
[2016-10-08] MEDS ORDERED: HEPARIN SOD 5000 UNIT/0.5 ML CARP SQ SCH (21:00)
[2016-10-08 21:06] LABS: CALCIUM 6.9 mg/dl (8.5-10.1); POTASSIUM 2.6 mmol/L (3.5-5.1)
[2016-10-08] MEDS ORDERED: NURSING VERBAL MED ORDER STA (21:23)
[2016-10-08] MEDS: AMINOPHYLLINE IV PRN (21:30)
[2016-10-08] MEDS: DEXTROSE 5% IV PRN (21:30)
[2016-10-08] MEDS: CHLORHEXIDINE GLUCONATE 0.12% 480 ML MT SCH (21:32)
[2016-10-08] MEDS: OSELTAMIVIR PHOSPHATE 6 MG/ML SUSP PO SCH (21:32)
[2016-10-08] MEDS: PIPERACILL/TAZOBAC IV 3.375 GM in DEXTROSE 5% 100ML IV SCH (21:33)
[2016-10-08] MEDS: POTASSIUM CHLR 20MEQ / WTR IV SCH (21:51)
[2016-10-08 22:17] LABS: ISTAT ARTERIAL BLOOD GAS HCO3 31 meq/L (19-24); ISTAT ARTERIAL BLOOD GAS PCO2 73 mmHg (35-46); ISTAT ARTERIAL BLOOD GAS PO2 181 mmHg (80-95); ISTAT ARTERIAL BLOOD GAS pH 7.23 (7.35-7.45); ISTAT CARBON DIOXIDE 33 mEq/l (24-31); ISTAT DELIVERY SYSTEM Ventilator; ISTAT FIO2 55 %; ISTAT PEEP 0; ISTAT RATE 28; ISTAT SITE Art Line
--- NOTE | 2016-10-08 22:47 | Procedure Note ---
Procedure Note Procedure Date Oct 08, 2016. Procedure Description Procedure Name: arterial line Procedure time out: side/site verified, patient ID confirmed, correct procedure Consent obtained: written Time of procedure: 10:30 Performed by: attending Indications: diagnostic Contraindications: none Description: The patient's right groin was prepped with chlorhexidine and draped sterilely. Via palpation the right femoral artery was identified. 2 mL of 1% lidocaine was percutaneously injected for anesthetic. A 20 gauge needle was introduced into the femoral artery and pulsatile blood return was noted. A 12 cm arterial catheter was introduced over a guidewire via seldinger technique, and sutured into place with 3-0 silk suture. Complications: none Patient tolerated procedure: well Post-procedure vital signs: reviewed and stable (persistent tachycardia) Central Line Procedure time out: side/site verified, patient ID confirmed, sterile procedure used Consent obtained: written Performed by: attending Indications: poor venous access, central drug admin. Prep: chlorhexadine prep Anesthesia: local injection, lidocaine 1% without epi Central line lumen: triple Central line location: femoral (R) Additional details: Selinger technique used, line sutured, good blood return Complications: none Patient tolerated procedure: well Post-procedure vital signs: reviewed and stable (persistant tachcardia) Procedure Note Procedure Date Oct 08, 2016. Procedure Description Procedure Name: Endotracheal intubation Procedure time out: side/site verified, patient ID confirmed, correct procedure Consent obtained: written (consent from patient's , patient critically ill) Time of procedure: 10:00 Performed by: attending Indications: therapeutic Contraindications: none Description: After aggressive resuscitation to correct a profound acidemia and pre- oxygenation at 100% FiO2, the patient was given 1 mg versed. I performed a direct laryngoscopy with a Mora 2 blade, achieved a grade 1 view, and a 7.5 endotracheal tube was placed at 24 to the teeth and secured. Position was confirmed by auscultation, EtCO2 color change, and CXR. Complications: none Patient tolerated procedure: well Post-procedure vital signs: reviewed and stable (Persistant tachycardia)
[2016-10-08 22:54] LABS: PHOSPHORUS 2.5 mg/dl (2.5-4.9)
[2016-10-09] VITALS (46 sets, daily range): BP systolic 92–140; BP diastolic 59–89; PULSE 102–138; TEMP 37–37.6; O2SAT 81–100
[2016-10-09] MEDS: POTASSIUM CHLR 20MEQ / WTR IV SCH ×3 (00:30→03:34)
[2016-10-09] MEDS ORDERED: NURSING VERBAL MED ORDER ONE ×5 (01:00→17:15)
[2016-10-09] MEDS: SODIUM CHLORIDE 0.9% IV SCH ×3 (01:26→22:41)
[2016-10-09] MEDS: VANCOMYCIN IV SCH ×3 (01:26→22:41)
[2016-10-09 01:47] LABS: ISTAT ARTERIAL BLOOD GAS HCO3 32 meq/L (19-24); ISTAT ARTERIAL BLOOD GAS PCO2 93 mmHg (35-46); ISTAT ARTERIAL BLOOD GAS PO2 138 mmHg (80-95); ISTAT ARTERIAL BLOOD GAS pH 7.14 (7.35-7.45); ISTAT CARBON DIOXIDE 35 mEq/l (24-31); ISTAT DELIVERY SYSTEM Ventilator; ISTAT FIO2 55 %; ISTAT PEEP 0; ISTAT RATE 28; ISTAT SITE Art Line
[2016-10-09] MEDS: DOXYCYCLINE IV 100 MG in DEXTROSE 5% 100ML 100 ML IV SCH ×2 (03:34→16:45)
[2016-10-09 04:51] LABS: HEMATOCRIT 40.6 % (37-47); MEAN CELL VOLUME 100.5 fL (80-100); MEAN CORPUSCULAR HEMOGLOBIN 32.9 pg (25-34); MEAN CORPUSCULAR HGB CONC 32.8 g/dl (32-36); MEAN PLATELET VOLUME 8.6 fL (7.4-10.4); PLATELET COUNT 370 K/uL (130-400); RED BLOOD COUNT 4.04 M/uL (4.2-5.4)
[2016-10-09 05:18] LABS: BUN/CREATININE RATIO 28.4 (10-20); CALCIUM 6.7 mg/dl (8.5-10.1); CREATININE 0.48 mg/dl (0.60-1.20); POTASSIUM 4.6 mmol/L (3.5-5.1)
[2016-10-09] MEDS: PIPERACILL/TAZOBAC IV 3.375 GM in DEXTROSE 5% 100ML IV SCH ×3 (05:42→22:41)
[2016-10-09 05:50] LABS: ISTAT ARTERIAL BLOOD GAS HCO3 32 meq/L (19-24); ISTAT ARTERIAL BLOOD GAS PCO2 87 mmHg (35-46); ISTAT ARTERIAL BLOOD GAS PO2 173 mmHg (80-95); ISTAT ARTERIAL BLOOD GAS pH 7.17 (7.35-7.45); ISTAT CARBON DIOXIDE 34 mEq/l (24-31); ISTAT DELIVERY SYSTEM Ventilator; ISTAT FIO2 55 %; ISTAT PEEP 0; ISTAT RATE 28; ISTAT SITE Art Line
--- NOTE | 2016-10-09 07:32 | Critical Care Progress Note ---
Critical Care Progress Note Date of Service Oct 09, 2016. Attending Dr. Mcfarland Subjective Mrs. Mak is a 51-year-old female who presented yesterday with respiratory failure likely secondary to influenza A. She was severely acidotic ; received multiple amps of bicarbonate, and infusion of Negra, and was intubated in the emergency department by Dr. Mcfarland and placed on pressure control ventilation. Overnight she had electrolyte disturbances, required changing levels of theophylline. She remained tachycardic requiring an increased rate of diltiazem drip to 5 mg per hour. Due to systolic blood pressures in the 80s, norepinephrine drip was initiated at 0.1 mcg/kg/m which demonstrated improvement in the 110's to 120's. She is sedated on Versed 5mg/ hr to a RASS of -3. Review of systems cannot be obtained due to patient condition, sedation, intubation. Objective Vital Signs - as noted Laboratory Data - as noted Physical Exam: General - Sedated, intubated Eyes - equal pupils, unresponsive to light,hazy left eye, No icterus, gaze conjugate ENT - ET Tube in place at 23cm with OG tube Neck - Supple, trachea midline, no masses or lymphadenopathy, no JVD or bruits Lungs - No paradoxical chest wall movement,Right: coarse with rhonchi throughout , Left: Rhonchi to upper long and wheezing mid and lower, distant breath sounds at base Heart - Sinus Tach 120-130's, No murmur, rubs, clicks, or gallops appreciated Abdomen - No BS noted, no bruits noted, tympanic to percussion, nontender, Moderately distended, no organomegaly Extremities - No edema, pedal pulses intact Neuro - A&OX0 Strength: Could not be assessed Reflexes: +1 Patellar reflex Bilaterally; Upgoing toes to plantar stimulation, Areflexive to Bicep and brachioradialis CN:equal pupils, unresponsive to light, no facial asymmetry Assessment & Plan (1) Acute hypercapnic respiratory failure Likely multifactorial; infectious process on chest x-ray (pneumonia), influenza A positive, and COPD exacerbation CXR 10/09/16: Near complete resolution of pulmonary edema pattern, prominent bilateral hilar and bilateral midlung zone densities persist, trace left pleural effusion. Sedation: * Versed Titrate to RASS -3 * Begin Fentanyl 50mcg q2hrs Intubated 7.5 ET Tube, 23cm at the lip Vent Settings at 0730: Pressure A/C, 28BPM, 34Insp; 0.60 Inspiratory time; 0 Peep; 1.0 Flow trigger; 55% FIO2 ABG @ 0751: 7.23/73/179/31 Further Vent Management per Dr. Mcfarland * Patient is to remain with a low tidal volume in the low 300s to high 200s * She is on pressure control due to severe COPD * She will be kept permissively acidotic at this time * Repeat ABGs after ventilation changes and every 4 hours * No spontaneous sedation or weaning trials today due to continued severe acidosis/ARDS. Further Respiratory Regimen management per Dr. Mcfarland * Xopenex 4puffs QID * Terbutaline Sq * Theophylline 0.5 * Check theophylline level at noon today * If level is less than 10 increase rate to 0.6 * If level is 10-15 continue current rate * If level was greater than 15 decreased to 0.4 Discontinue Mg Infusion as with increased levels we are unable to monitor reflexes accurately due to neuromuscular disease. * Peak level 5.2, now 2.5 * Follow Mg Level q4hrs Can not currently rule out Pleural Embolism. Pt is not stable for transport at this time to CT. * Pt being treated with Heparin Infusion for possible stress induced NSTEMI * Obtain Bilateral Lower Extremities Doppler to rule out DVTs Begin Solumedrol 30mg IV BID Chlorhexadine Mouth Care in place HOB at 30* (2) Respiratory acidosis Received in ED: * 2Amps HCO3 * Negra dosed at 9ml/kg Received 2 additional Amps of HCO3 in ICU on evening of 10/08 Currently intubated and plan as above, respiration rate elevated to help blow off CO2 AGBs q4 or with changes (3) Pneumonia Lactic Acid: 1.5 WBC: 11.10 TMax: 37.0 CXR: 10/09/16: Near complete resolution of pulmonary edema pattern, prominent bilateral hilar and bilateral midlung zone densities persist, trace left pleural effusion. Blood Cultures Pending Sputum Culture Pending Repeat CXR in AM Continue Broad Spectrum Abx: Day 2 * Doxycycline 100 mg IV every 12 hours * Vancomycin 550 mg IV every 10 * Zosyn 3.375 g IV every 8 hours (4) COPD exacerbation As noted in Resp Failure (5) Elevated troponin Dr. Cannon consulted: likely due to hypoxemia from acute illness Repeat EKG demonstrates improvement in ST depression in lateral leads Troponin trending up: 8.2 --> 11.1 --> 11.4 --> 12.2 Continue to trend troponin per Cardiology Start ASA chewable 81mg via OG Tube Heparin Infusion started by cardiology Monitor on telemetry Repeat EKG in AM (6) Cardiomyopathy Dr. Krishnamurthy consulted. ECHO 10/08: Severe LV systolic dysfunction, LV ejection fraction 20-25% compared to normal EF in June 2015 Cardizem drip stopped this afternoon, with no response to Heart Rate but improvement to SBP Further Recommendations per Dr. Krishnamurthy Avoiding Dobutamine for risk of V. Tach Cardiology to start "IV digoxin load, 250 mcg IV x 1 now, and 125 mcg in 6 hours. and will reassess prior to 3rd dose, and check digoxin level in am." * Pharmacy aware for potential drug interactions NOTE: Dr. Gardner will be rounding on AM of 10/10 (7) Prolonged Q-T interval on ECG Dr. Krishnamurthy consulted: likely due to hypoxemia from acute illness Increased today at 476 D/C'd Levaquin Avoid QTc Prolonging Medications Repeat EKG in AM (8) Multiple sclerosis Follows with Dr. Fernandes [facility] as out-pt; consider consult as pt improves D/C'd Mg drip due to inability to follow toxicity with reflexes. Minimal reflexes noted due to neuromuscular dz of MS. Other Neuro: Reflexes noted as +1 on lower extremities today; still areflexive to upper extremities; likely due to multiple sclerosis Neuro checks per protocol Monitor clinically Opthalmology: Glaucoma Continue Home meds * Brimonidine Tartrate Oph 0.15% * Dorzolamide Hcl-Timolol Maleat 1 drop OPB BID Endo: No hx of DM [id number] Monitor BSGs per protocol : Cr: 0..48 No maintenance fluids due to approx 2L of fluid in combine drips Pharmacy in place to concentrate all possible medications Zambrano in place Follow serial labs GI: Prophylaxis: Protonix in place DIET: Will begin high-protein trickle feeds (Impact 1.0 15ml/hr) via OG tube today; * patient is at increased risk for refeeding syndrome * phosphate levels every 6 hours for at least the next 24 hours. DVT Prophylaxis: * D/C Heparin sq, being Heparin Infusion * SCDs in place Access: Right Femoral Triple Lumen Catheter Right Arterial Line Right 18g Forearm PIV Left 20g AC PIV CCT: 110 Minutes, not including billable procedures. Thank you for including us in the care of this patient. Please review Dr. Mcfarland's addendum for further recommendations. I have personally evaluated and examined this patient. I agree with assessment and plan of Mervin Dewitt PA-C. Patient had fair improvement in respiratory mechanics, magnesium level started to climb presents serum concentration greater than 5 so magnesium infusion was stopped. We have stopped the subcutaneous terbutaline. The Aminophyllin level was initially therapeutic after the initial bolus, however we have had difficulty in achieving the recommended range with increasing her Aminophyllin infusion, I suspect she is a high metabolizer of Aminophyllin. We have been decreasing the driving pressure, attempting to keep her tidal volume with in our 's neck guidelines, she has such a profound respiratory acidosis. A ventilated proximally 7-8 mL's per kilo in the last 24 hours it had significant improvement , we decreased her oxygenation requirements she is currently on a FiO2 of 30%. I hope is that tomorrow we will be able to attempt to spontaneous breathing trial with a spontaneous awakening trial. Discussion with Dr. Krishnamurthy we have switched the patient from diltiazem to digoxin. She has had a lower loading dose given her small stature. However at approximately 1900 this evening the patient had significant tachycardia 0.1 30s again. Accordingly have given her a second dose of 125 mg of digoxin which would complete a lower loading and we will be rechecking a digoxin level in the morning. Consults & Procedures Consultants: Cardiology: Dr. Krishnamurthy Pharmacy Procedures: R. Fem Central Line 10/08 R Fem Art Line 10/08 Data Medications: Current Inpatient Medications Medications (Trade) Dose Ordered Sig/Rajan Route Start Time Stop Time Status Last Admin Dose Admin Norepinephrine Bitartrate 8 mg/ Dextrose 508 ml @ 0 mls/min Q0M PRN IV 10/08/16 11:45 11/07/16 11:44 10/08/16 21:29 13.1 MLS/MIN Midazolam HCl (Midazolam 125MG/ 250ML D5w) 250 ml @ 0 mls/hr Q0M PRN IV 10/08/16 12:00 11/07/16 11:59 10/08/16 12:02 4 MLS/HR Vancomycin HCl 1 ea 1 ea UD N/A 10/08/16 14:45 11/07/16 14:44 Doxycycline Hyclate/Dextrose (Vibramycin IV/ D5 100ml) 110 ml @ 50 mls/hr Q12H IV 10/09/16 04:00 10/16/16 03:59 10/09/16 03:34 50 MLS/HR Chlorhexidine Gluconate (Peridex Oral Soln) 15 ml BID MT 10/08/16 21:00 11/07/16 20:59 10/08/16 21:32 15 ML Levalbuterol 4 puffs 4 puffs QIDR INH 10/08/16 16:00 11/07/16 15:59 10/08/16 20:48 4 PUFFS Pantoprazole Sodium/Syringe (Protonix Inj/ Syringe) 10 ml @ 5 mls/min DAILY@11 IV 10/09/16 11:00 11/08/16 10:59 Heparin Sodium (Porcine) 5000 unit 5,000 unit Q12 SQ 10/08/16 21:00 11/07/16 20:59 10/08/16 21:31 5,000 UNIT Piperacillin Sod/ Tazobactam Sod/ Dextrose (Zosyn Iv/D5 100ml) 115 ml @ 28.75 mls/ hr Q8H IV 10/08/16 22:00 10/15/16 21:59 10/09/16 05:42 28.75 MLS/HR Piperacillin Sod/ Tazobactam Sod 1 ea 1 ea UD N/A 10/08/16 15:00 11/07/16 14:59 Vancomycin HCl 550 mg/Sodium Chloride 261 ml @ 125 mls/hr Q10H IV 10/09/16 02:00 10/16/16 01:59 10/09/16 01:26 125 MLS/HR Diltiazem HCl/ Dextrose (Cardizem Inj/D5 100ml) 125 ml @ 0 mls/hr Q0M PRN IV 10/08/16 15:15 11/07/16 15:14 Oseltamivir Phosphate 150 mg 150 mg BID PO 10/08/16 21:00 10/13/16 20:59 10/08/16 21:32 150 MG Aminophylline/ Dextrose (Aminophylline Iv/D5W 500ml) 500 ml @ 12.18 mls/ hr Q24H PRN IV 10/08/16 18:00 11/07/16 17:59 10/08/16 21:30 8.7 MLS/HR I & O: 24-Hour Column 10/09/16 08:00 Intake Total 2587 ml Output Total 1625 ml Balance 962 ml Vital Signs: Date Time Temp Pulse Resp B/P Pulse Ox O2 Delivery O2 Flow Rate FiO2 10/09/16 06:30 122 28 99 106/65 10/09/16 06:28 121 28 92/65 98 104/64 10/09/16 06:00 125 28 110/67 99 10/09/16 05:58 124 28 95/75 98 110/67 10/09/16 05:57 55 10/09/16 05:28 131 28 108/85 99 130/77 10/09/16 05:00 124 28 116/71 99 10/09/16 04:58 124 28 97/68 99 116/72 10/09/16 04:30 123 28 109/72 99 10/09/16 04:00 99 Mechanical Ventilator 55 10/09/16 04:00 55 10/09/16 04:00 37.0 10/09/16 04:00 125 28 118/71 99 10/09/16 03:58 127 28 133/59 99 120/73 10/09/16 03:30 125 28 117/71 99 10/09/16 03:28 125 28 98/70 99 118/72 10/09/16 03:00 130 29 115/66 99 10/09/16 02:58 124 28 95/70 99 113/65 10/09/16 02:30 123 28 112/65 99 10/09/16 02:28 124 28 108/59 99 116/67 10/09/16 02:00 128 28 117/68 99 10/09/16 01:58 125 28 101/74 100 119/70 10/09/16 01:49 55 10/09/16 01:30 129 28 122/71 97 10/09/16 01:29 102 28 104/73 81 125/70 10/09/16 01:00 123 28 114/67 99 10/09/16 00:59 124 28 123/69 99 117/68 10/09/16 00:30 124 28 129/78 98 10/09/16 00:28 126 28 98/83 99 134/80 10/09/16 00:00 37.0 126 28 125/71 98 10/08/16 23:59 37.0 10/08/16 23:59 55 10/08/16 23:59 99 Mechanical Ventilator 55 10/08/16 23:58 128 28 119/83 99 127/73 10/08/16 23:30 124 28 112/70 99 10/08/16 23:28 122 28 108/83 99 115/70 10/08/16 23:00 120 28 114/66 99 10/08/16 22:58 121 28 107/75 99 116/67 10/08/16 22:30 116 28 117/68 100 10/08/16 22:28 119 28 113/82 99 122/70 10/08/16 22:08 55 10/08/16 22:00 117 28 125/72 100 10/08/16 21:59 116 28 117/96 122/70 10/08/16 21:30 110 28 110/67 98 10/08/16 21:28 110 28 105/72 99 114/70 10/08/16 21:00 112 28 89/49 99 10/08/16 20:58 111 28 101/58 99 88/49 10/08/16 20:49 55 10/08/16 20:30 120 28 102/59 99 10/08/16 20:28 119 28 107/77 99 100/57 10/08/16 20:00 36.4 114 28 100/52 99 10/08/16 20:00 98 Mechanical Ventilator 55 10/08/16 20:00 36.4 10/08/16 20:00 55 10/08/16 19:58 114 28 114/70 99 100/52 10/08/16 19:30 114 28 97/53 99 10/08/16 19:00 117 28 104/54 99 10/08/16 17:58 36.4 120 28 104/72 98 109/53 10/08/16 17:45 36.4 121 28 99 108/52 10/08/16 17:25 55 10/08/16 17:15 36.4 125 26 99 110/54 10/08/16 17:05 36.4 126 26 111/71 99 111/55 10/08/16 16:58 36.4 128 26 111/71 99 114/57 10/08/16 16:45 36.4 132 26 99 300/300 10/08/16 16:15 36.4 124 24 99 103/52 10/08/16 16:00 98 Mechanical Ventilator 60 10/08/16 15:58 36.4 125 24 100/72 99 101/53 10/08/16 15:45 36.4 124 24 99 102/52 10/08/16 15:15 36.4 124 24 99 102/52 10/08/16 14:58 36.4 127 24 109/77 100 111/56 10/08/16 14:45 60 10/08/16 14:45 36.4 124 20 99 109/55 10/08/16 14:15 36.4 124 20 99 110/55 10/08/16 13:58 36.4 123 20 103/72 98 114/59 10/08/16 13:45 36.4 124 20 98 112/59 10/08/16 13:30 36.8 124 20 111/59 98 Mechanical Ventilator 60 10/08/16 13:15 36.4 121 20 104/56 10/08/16 12:58 126 95/64 99 Mechanical Ventilator 10/08/16 12:56 107/58 10/08/16 12:43 104/80 10/08/16 12:28 98/73 10/08/16 12:23 93/71 10/08/16 12:18 130 21 97 10/08/16 12:13 87/67 10/08/16 12:11 87/64 10/08/16 12:05 85/62 10/08/16 11:58 97/73 10/08/16 11:56 100/74 10/08/16 11:48 148 21 94/75 10/08/16 11:44 103/74 10/08/16 11:43 99/80 10/08/16 11:42 117/89 10/08/16 11:40 60 10/08/16 11:36 115/87 10/08/16 11:29 155 10/08/16 11:28 123/97 10/08/16 11:23 36.6 10/08/16 11:18 156 22 87 10/08/16 11:13 127/99 10/08/16 11:07 157 30 94 10/08/16 10:58 137/114 10/08/16 10:55 123/100 10/08/16 10:52 163 23 89 10/08/16 10:37 164 22 100 10/08/16 10:30 162 21 136/94 100 BiPAP 10/08/16 10:30 168 60 10/08/16 10:29 136/94 10/08/16 10:22 162 21 100 10/08/16 10:16 160 24 170/57 96 BiPAP 10/08/16 10:13 170/157 10/08/16 10:13 159 22 98 BiPAP 10/08/16 10:07 152 22 10/08/16 10:01 151/113 10/08/16 09:59 154 10/08/16 09:55 166 22 BiPAP/CPAP 100 10/08/16 09:55 165 22 176/156 93 BiPAP 10/08/16 09:55 166 100 Laboratory Results: Last 24 Hours Test 10/08/16 10:03 10/08/16 10:05 10/08/16 10:08 10/08/16 10:19 Bedside Lactic Acid Venous 2.09 mmol/L White Blood Count 15.11 K/uL Red Blood Count 4.32 M/uL Hemoglobin 14.2 g/dL Hematocrit 43.0 % Mean Corpuscular Volume 99.5 fL Mean Corpuscular Hemoglobin 32.9 pg Mean Corpuscular Hemoglobin Concent 33.0 g/dl Platelet Count 565 K/uL Mean Platelet Volume 9.1 fL Neutrophils (%) (Auto) 73.0 % Lymphocytes (%) (Auto) 19.8 % Monocytes (%) (Auto) 6.6 % Eosinophils (%) (Auto) 0.1 % Basophils (%) (Auto) 0.2 % Neutrophils # (Auto) 11.04 K/uL Lymphocytes # (Auto) 2.99 K/uL Monocytes # (Auto) 0.99 K/uL Eosinophils # (Auto) 0.02 K/uL Basophils # (Auto) 0.03 K/uL RDW Standard Deviation 49.4 fL RDW Coefficient of Variation 13.6 % Immature Granulocyte % (Auto) 0.3 % Immature Granulocyte # (Auto) 0.04 K/uL Prothrombin Time 11.2 SECONDS Prothromb Time International Ratio 1.0 Activated Partial Thromboplast Time 29.8 SECONDS Partial Thromboplastin Ratio 1.1 Sodium Level 144 mmol/L Potassium Level 3.6 mmol/L Chloride Level 113 mmol/L Carbon Dioxide Level 24 mmol/L Anion Gap 7.0 mmol/L 15.0 mmol/L Blood Urea Nitrogen 17 mg/dl Creatinine 0.63 mg/dl Estimated GFR () 122.1 Estimated GFR (Non- 105.3 BUN/Creatinine Ratio 26.4 Random Glucose 176 mg/dl Calcium Level 8.6 mg/dl Magnesium Level 2.0 mg/dl Total Bilirubin 0.1 mg/dl Direct Bilirubin < 0.1 mg/dl Aspartate Amino Transf (AST/SGOT) 42 U/L Alanine Aminotransferase (ALT/SGPT) 30 U/L Alkaline Phosphatase 110 U/L Total Creatine Kinase 170 U/L Creatine Kinase MB 6.0 ng/ml Creatine Kinase MB Ratio 3.5 Troponin I 8.260 ng/ml Total Protein 7.5 gm/dl Albumin 3.1 gm/dl Bedside Hemoglobin 16.0 g/dl Bedside Hematocrit 47 % Bedside Sodium 142 mEq/L Bedside Potassium 5.4 mEq/L Bedside Chloride 112 mEq/L Bedside Total CO2 21 mEq/l Bedside Blood Urea Nitrogen 19 mg/dl Bedside Creatinine 0.5 mg/dl Bedside Glucose (other) 163 mg/dl Bedside Ionized Calcium (Aury) 1.10 mmol/l Bedside Blood Gas pH (LAB) 6.99 Bedside Blood Gas pCO2 (LAB) 89 mmHg Bedside Blood Gas pO2 (LAB) > 420 mmHg Bedside Blood Gas HCO3 (LAB) 21 meq/L Bedside Blood Gas Total CO2 24 mEq/l Bedside Blood Gas Base Excess (LAB) -10.0 meq/L Bedside Blood Gas O2 Saturation 100.0 % Test 10/08/16 11:11 10/08/16 12:36 10/08/16 13:45 10/08/16 14:20 Bedside Hemoglobin 13.3 g/dl Bedside Hematocrit 39 % Bedside Sodium 148 mEq/L Bedside Potassium 3.9 mEq/L Bedside Chloride 107 mEq/L Bedside Total CO2 31 mEq/l Anion Gap 14.0 mmol/L Bedside Blood Urea Nitrogen 19 mg/dl Bedside Creatinine 0.6 mg/dl Bedside Glucose (other) 261 mg/dl Bedside Ionized Calcium (Aury) 1.14 mmol/l Arterial Blood pH 7.03 Arterial Blood Partial Pressure CO2 132 mmHg Arterial Blood Partial Pressure O2 121 mm/Hg Arterial Blood HCO3 34 mmol/L Arterial Blood Oxygen Saturation 96.5 % Arterial Blood Base Excess 0.3 mEq/L Arterial Blood Gas Delivery 60% Jatin Test UNK Influenza Type A (RT-PCR) POS for Influ A Influenza Type B (RT-PCR) Neg for Influ B Urine Color YELLOW Urine Appearance CLEAR Urine pH 7.0 Urine Specific [place] 1.014 Urine Protein NEG Urine Glucose (UA) NEG Urine Ketones NEG Urine Occult Blood TRACE Urine Nitrite NEG Urine Bilirubin NEG Urine Urobilinogen NEG Urine Leukocyte Esterase NEG Urine WBC (Auto) 1-5 /hpf Urine RBC (Auto) 0-4 /hpf Urine Hyaline Casts (Auto) 10-30 /lpf Urine Epithelial Cells (Auto) >30 /lpf Urine Bacteria (Auto) NEG Test 10/08/16 14:35 10/08/16 16:00 10/08/16 16:08 10/08/16 16:45 Random Cortisol 126.14 mcg/dl Magnesium Level 4.1 mg/dl Creatine Kinase MB 15.8 ng/ml Creatine Kinase MB Ratio Troponin I 11.100 ng/ml Lactic Acid Level 1.5 mmol/L Theophylline Level 13 mcg/ml Test 10/08/16 17:48 10/08/16 20:07 10/08/16 22:00 10/08/16 22:02 Bedside Glucose 230 mg/dl Sodium Level 148 mmol/L Potassium Level 2.6 mmol/L Chloride Level 107 mmol/L Carbon Dioxide Level 32 mmol/L Anion Gap 9.0 mmol/L Blood Urea Nitrogen 13 mg/dl Creatinine 0.64 mg/dl Est Creatinine Clear Calc Drug Dose 58.4 ml/min Estimated GFR () 121.4 Estimated GFR (Non- 104.8 BUN/Creatinine Ratio 20.9 Random Glucose 190 mg/dl Calcium Level 6.9 mg/dl Magnesium Level 4.7 mg/dl Total Bilirubin 0.2 mg/dl Aspartate Amino Transf (AST/SGOT) 67 U/L Alanine Aminotransferase (ALT/SGPT) 25 U/L Alkaline Phosphatase 110 U/L Total Protein 6.1 gm/dl Albumin 2.3 gm/dl Globulin 3.8 gm/dl Albumin/Globulin Ratio 0.6 Theophylline Level 5 mcg/ml Creatine Kinase MB Ratio Blood Gas Sample Site Art Line Bedside Blood Gas pH (LAB) 7.23 Bedside Blood Gas pCO2 (LAB) 73 mmHg Bedside Blood Gas pO2 (LAB) 181 mmHg Bedside Blood Gas HCO3 (LAB) 31 meq/L Bedside Blood Gas Total CO2 33 mEq/l Bedside Blood Gas Base Excess (LAB) 3.0 meq/L Bedside Blood Gas O2 Saturation 99.0 % Jatin Test NA Oxygen Delivery Device Ventilator Bedside Oxygen Rate (breaths/min) 28 Bedside FiO2 55 % Blood Gas PEEP 0 Test 10/08/16 22:20 10/08/16 23:55 10/08/16 23:56 10/09/16 01:32 Phosphorus Level 2.5 mg/dl Creatine Kinase MB 32.1 ng/ml Troponin I 11.400 ng/ml Bedside Glucose 141 mg/dl Magnesium Level 5.2 mg/dl Theophylline Level 4 mcg/ml Blood Gas Sample Site Art Line Bedside Blood Gas pH (LAB) 7.14 Bedside Blood Gas pCO2 (LAB) 93 mmHg Bedside Blood Gas pO2 (LAB) 138 mmHg Bedside Blood Gas HCO3 (LAB) 32 meq/L Bedside Blood Gas Total CO2 35 mEq/l Bedside Blood Gas Base Excess (LAB) 3.0 meq/L Bedside Blood Gas O2 Saturation 98.0 % Jatin Test NA Oxygen Delivery Device Ventilator Bedside Oxygen Rate (breaths/min) 28 Bedside FiO2 55 % Blood Gas PEEP 0 Test 10/09/16 04:31 10/09/16 05:36 10/09/16 05:40 White Blood Count 11.10 K/uL Red Blood Count 4.04 M/uL Hemoglobin 13.3 g/dL Hematocrit 40.6 % Mean Corpuscular Volume 100.5 fL Mean Corpuscular Hemoglobin 32.9 pg Mean Corpuscular Hemoglobin Concent 32.8 g/dl RDW Standard Deviation 50.9 fL RDW Coefficient of Variation 13.7 % Platelet Count 370 K/uL Mean Platelet Volume 8.6 fL Sodium Level 147 mmol/L Potassium Level 4.6 mmol/L Chloride Level 109 mmol/L Carbon Dioxide Level 33 mmol/L Anion Gap 5.0 mmol/L Blood Urea Nitrogen 14 mg/dl Creatinine 0.48 mg/dl Est Creatinine Clear Calc Drug Dose 77.9 ml/min Estimated GFR () 133.5 Estimated GFR (Non- 115.2 BUN/Creatinine Ratio 28.4 Random Glucose 141 mg/dl Calcium Level 6.7 mg/dl Magnesium Level 3.0 mg/dl Theophylline Level 4 mcg/ml Blood Gas Sample Site Art Line Bedside Blood Gas pH (LAB) 7.17 Bedside Blood Gas pCO2 (LAB) 87 mmHg Bedside Blood Gas pO2 (LAB) 173 mmHg Bedside Blood Gas HCO3 (LAB) 32 meq/L Bedside Blood Gas Total CO2 34 mEq/l Bedside Blood Gas Base Excess (LAB) 3.0 meq/L Bedside Blood Gas O2 Saturation 99.0 % Jatin Test NA Oxygen Delivery Device Ventilator Bedside Oxygen Rate (breaths/min) 28 Bedside FiO2 55 % Blood Gas PEEP 0 Bedside Glucose 131 mg/dl
[2016-10-09] MEDS: LEValbuterol HFA 15GM INHALER INH SCH ×4 (07:39→19:06)
[2016-10-09 08:04] LABS: ISTAT ARTERIAL BLOOD GAS HCO3 31 meq/L (19-24); ISTAT ARTERIAL BLOOD GAS PCO2 73 mmHg (35-46); ISTAT ARTERIAL BLOOD GAS PO2 179 mmHg (80-95); ISTAT ARTERIAL BLOOD GAS pH 7.23 (7.35-7.45); ISTAT CARBON DIOXIDE 33 mEq/l (24-31); ISTAT DELIVERY SYSTEM Ventilator; ISTAT FIO2 55 %; ISTAT PEEP 0; ISTAT RATE 28; ISTAT SITE Art Line
--- NOTE | 2016-10-09 08:38 | DIAGNOSTIC IMAGING REPORT ---
CHEST ONE VIEW PORTABLE HISTORY: Follow-up pulmonary edema. Short of breath. COMPARISON: Chest 10/08/2016. FINDINGS: Interval improvement in the bilateral airspace opacities which suggests resolving pulmonary edema. There are prominent bilateral peggy and bilateral midlung zone densities which may represent scarring. Mild interstitial thickening likely represents chronic change. There is a 13 mm nodular density within the right upper lobe. Focal peripheral pleural thickening at the left midlung zone is again noted. Nodular density at the right lung base may represent a nipple shadow. The heart is normal in size. Nasogastric tube terminates in the stomach. The tip of the endotracheal tube terminates approximately 2.2 cm from the elidia. No pneumothorax. Trace left pleural effusion. IMPRESSION: 1. Near complete resolution of the pulmonary edema pattern. 2. Prominent bilateral peggy and bilateral midlung zone densities persist. Continued follow-up recommended to ensure stability. 3. Trace left pleural effusion. 4. Satisfactory support line placement. Electronically signed by: Derik Angel M.D. 10/09/2016 8:36 AM Dictated Date/Time: 10/09/2016 8:34 AM
[2016-10-09] MEDS ORDERED: ASPIRIN 81 MG CHEW PEG ONE (09:17)
--- NOTE | 2016-10-09 09:18 | Cardiology Follow-Up ---
Subjective General Date of Service: Oct 09, 2016. Chief Complaint: follow-up cardiomyopathy, elevated troponin I Pt evaluation today including: conversation w/ patient, physical exam, conversation w/ heritage consultant History of Present Illness The patient is a 51 year old female seen in cardiology follow-up. Patient remains sedated and on the ventilator. She remains on a limited as a lamp infusion for sedation, and is also receiving IV theophylline, in addition to broad-spectrum antibiotics. A diltiazem infusion had been initiated yesterday to help reduce heart rate. Beta vivi was not used due to concerns of possible bronchospasm. The diltiazem infusion had been increased from 2.5 mg per hour to 5 mg overnight, and her heart rate is improved to some degree down to the 110's compared to 125 bpm at the time of my initial consultation on 10/08/16. Blood pressure remains adequate with a systolic blood pressure 100 mmHg by arterial line. Although there is a PRN order for norepinephrine she did not require pressor support of her BP as of yet. Her troponin trended up last night from 8.2-->11.1-->11.4 ng/ml. A repeat for this am has been requested and is in process. EKG performed this morning reveals continued sinus tachycardia. The previously noted anteroseptal ST depression is improved, but she has new or R wave progression throughout the precordial leads which is especially new compared to history is EKG V4 to V6. No ST segment elevation is noted. Allergies Coded Allergies: No Known Allergies (Unverified , 02/12/16) Social History Smoking Status: Current Every Day Smoker (1pack/day, since 15yo) Hx Tobacco Use In Past Year?: Yes Hx Alcohol Use - Type And Amou: No Hx Substance Use - Type And Am: No Problem List Medical Problems: (1) CO2 narcosis Status: Acute (2) COPD exacerbation Status: Acute (3) Elevated troponin Status: Acute (4) Pneumonia Status: Acute (5) Respiratory failure Status: Acute Physical Exam Vital Signs Last Vital Signs Documentation Date Time Temp Pulse Resp B/P Pulse Ox O2 Delivery O2 Flow Rate FiO2 10/09/16 07:59 45 10/09/16 06:30 122 28 99 106/65 10/09/16 04:00 Mechanical Ventilator 10/09/16 04:00 37.0 Physical Exam Constitutional: General Apperance: cachectic Level of Distress: acutely ill Neck: supple Lungs: Auscultation: pertinent finding (mildly decreased breath sounds to bases no Rales) Cardiovascular: Heart Auscultation: no murmurs, no gallops, tachycardia Abdomen: Inspection & Palpation: soft Extremities: no edema Assessment and Plan Assessment and Plan Impression: 51-year-old female 1. Ventilator-dependent respiratory failure with ARDS in the setting of COPD, influenza A with presumed superimposed bacterial pneumonia, cardiomyopathy 2. Severe LV systolic dysfunction, LV ejection fraction 20-25% compared to normal EF in June 2015, clinical presentation and echocardiographic appearance is compatible with stress-induced cardiomyopathy, with myocardial injury, NSTEMI bases on elevated troponin I. The troponin I elevation however is somewhat mild relative to the severe LV systolic dysfunction, and I do not think that the wall motion abnormalities suggestive of an acute infarct as her troponin would be anticipated to be much higher. 3. Sinus tachycardia secondary to #s 1 and 2. Plan: Add UF heparin infusion. Although doubt she has an acute intracoronary plaque rupture , given EKG findings and risk factors for underlying CAD (long time smoker) will proceed with 48 hours of UF heparin anticoagulation. Still hesitant to start beta blockers, and critical care is in agreement due to risk of bronchospasm. Cardizem is not ideal , due to negative inotropic effects. Since renal function remains stable, start IV digoxin load, 250 mgc IV x 1 now, and 125 mcg in 6 hours. Will reassess prior to 3rd dose, and check digoxin level in am. Start aspirin chewable 81 mg daily via NG tube. DVT proph: DC SQ heparin , start UF heparin. Not on beta blockers due to borderline hypotension, risk of bronchospasm. Not on ACEI / ARB due to relative hypotension. Would avoid dobutamine for now, as pt already has significant sinus tachycardia. Dr Gardner assuming rounding for me tomorrow. Laboratory Results Last 24 Hours Test 10/08/16 10:03 10/08/16 10:05 10/08/16 10:08 10/08/16 10:19 Bedside Lactic Acid Venous 2.09 mmol/L White Blood Count 15.11 K/uL Red Blood Count 4.32 M/uL Hemoglobin 14.2 g/dL Hematocrit 43.0 % Mean Corpuscular Volume 99.5 fL Mean Corpuscular Hemoglobin 32.9 pg Mean Corpuscular Hemoglobin Concent 33.0 g/dl Platelet Count 565 K/uL Mean Platelet Volume 9.1 fL Neutrophils (%) (Auto) 73.0 % Lymphocytes (%) (Auto) 19.8 % Monocytes (%) (Auto) 6.6 % Eosinophils (%) (Auto) 0.1 % Basophils (%) (Auto) 0.2 % Neutrophils # (Auto) 11.04 K/uL Lymphocytes # (Auto) 2.99 K/uL Monocytes # (Auto) 0.99 K/uL Eosinophils # (Auto) 0.02 K/uL Basophils # (Auto) 0.03 K/uL RDW Standard Deviation 49.4 fL RDW Coefficient of Variation 13.6 % Immature Granulocyte % (Auto) 0.3 % Immature Granulocyte # (Auto) 0.04 K/uL Prothrombin Time 11.2 SECONDS Prothromb Time International Ratio 1.0 Activated Partial Thromboplast Time 29.8 SECONDS Partial Thromboplastin Ratio 1.1 Sodium Level 144 mmol/L Potassium Level 3.6 mmol/L Chloride Level 113 mmol/L Carbon Dioxide Level 24 mmol/L Anion Gap 7.0 mmol/L 15.0 mmol/L Blood Urea Nitrogen 17 mg/dl Creatinine 0.63 mg/dl Estimated GFR () 122.1 Estimated GFR (Non- 105.3 BUN/Creatinine Ratio 26.4 Random Glucose 176 mg/dl Calcium Level 8.6 mg/dl Magnesium Level 2.0 mg/dl Total Bilirubin 0.1 mg/dl Direct Bilirubin < 0.1 mg/dl Aspartate Amino Transf (AST/SGOT) 42 U/L Alanine Aminotransferase (ALT/SGPT) 30 U/L Alkaline Phosphatase 110 U/L Total Creatine Kinase 170 U/L Creatine Kinase MB 6.0 ng/ml Creatine Kinase MB Ratio 3.5 Troponin I 8.260 ng/ml Total Protein 7.5 gm/dl Albumin 3.1 gm/dl Bedside Hemoglobin 16.0 g/dl Bedside Hematocrit 47 % Bedside Sodium 142 mEq/L Bedside Potassium 5.4 mEq/L Bedside Chloride 112 mEq/L Bedside Total CO2 21 mEq/l Bedside Blood Urea Nitrogen 19 mg/dl Bedside Creatinine 0.5 mg/dl Bedside Glucose (other) 163 mg/dl Bedside Ionized Calcium (Aury) 1.10 mmol/l Bedside Blood Gas pH (LAB) 6.99 Bedside Blood Gas pCO2 (LAB) 89 mmHg Bedside Blood Gas pO2 (LAB) > 420 mmHg Bedside Blood Gas HCO3 (LAB) 21 meq/L Bedside Blood Gas Total CO2 24 mEq/l Bedside Blood Gas Base Excess (LAB) -10.0 meq/L Bedside Blood Gas O2 Saturation 100.0 % Test 10/08/16 11:11 10/08/16 12:36 10/08/16 13:45 10/08/16 14:20 Bedside Hemoglobin 13.3 g/dl Bedside Hematocrit 39 % Bedside Sodium 148 mEq/L Bedside Potassium 3.9 mEq/L Bedside Chloride 107 mEq/L Bedside Total CO2 31 mEq/l Anion Gap 14.0 mmol/L Bedside Blood Urea Nitrogen 19 mg/dl Bedside Creatinine 0.6 mg/dl Bedside Glucose (other) 261 mg/dl Bedside Ionized Calcium (Aury) 1.14 mmol/l Arterial Blood pH 7.03 Arterial Blood Partial Pressure CO2 132 mmHg Arterial Blood Partial Pressure O2 121 mm/Hg Arterial Blood HCO3 34 mmol/L Arterial Blood Oxygen Saturation 96.5 % Arterial Blood Base Excess 0.3 mEq/L Arterial Blood Gas Delivery 60% Jatin Test UNK Influenza Type A (RT-PCR) POS for Influ A Influenza Type B (RT-PCR) Neg for Influ B Urine Color YELLOW Urine Appearance CLEAR Urine pH 7.0 Urine Specific [place] 1.014 Urine Protein NEG Urine Glucose (UA) NEG Urine Ketones NEG Urine Occult Blood TRACE Urine Nitrite NEG Urine Bilirubin NEG Urine Urobilinogen NEG Urine Leukocyte Esterase NEG Urine WBC (Auto) 1-5 /hpf Urine RBC (Auto) 0-4 /hpf Urine Hyaline Casts (Auto) 10-30 /lpf Urine Epithelial Cells (Auto) >30 /lpf Urine Bacteria (Auto) NEG Test 10/08/16 14:35 10/08/16 16:00 10/08/16 16:08 10/08/16 16:45 Random Cortisol 126.14 mcg/dl Magnesium Level 4.1 mg/dl Creatine Kinase MB 15.8 ng/ml Creatine Kinase MB Ratio Troponin I 11.100 ng/ml Lactic Acid Level 1.5 mmol/L Theophylline Level 13 mcg/ml Test 10/08/16 17:48 10/08/16 20:07 10/08/16 22:00 10/08/16 22:02 Bedside Glucose 230 mg/dl Sodium Level 148 mmol/L Potassium Level 2.6 mmol/L Chloride Level 107 mmol/L Carbon Dioxide Level 32 mmol/L Anion Gap 9.0 mmol/L Blood Urea Nitrogen 13 mg/dl Creatinine 0.64 mg/dl Est Creatinine Clear Calc Drug Dose 58.4 ml/min Estimated GFR () 121.4 Estimated GFR (Non- 104.8 BUN/Creatinine Ratio 20.9 Random Glucose 190 mg/dl Calcium Level 6.9 mg/dl Magnesium Level 4.7 mg/dl Total Bilirubin 0.2 mg/dl Aspartate Amino Transf (AST/SGOT) 67 U/L Alanine Aminotransferase (ALT/SGPT) 25 U/L Alkaline Phosphatase 110 U/L Total Protein 6.1 gm/dl Albumin 2.3 gm/dl Globulin 3.8 gm/dl Albumin/Globulin Ratio 0.6 Theophylline Level 5 mcg/ml Creatine Kinase MB Ratio Blood Gas Sample Site Art Line Bedside Blood Gas pH (LAB) 7.23 Bedside Blood Gas pCO2 (LAB) 73 mmHg Bedside Blood Gas pO2 (LAB) 181 mmHg Bedside Blood Gas HCO3 (LAB) 31 meq/L Bedside Blood Gas Total CO2 33 mEq/l Bedside Blood Gas Base Excess (LAB) 3.0 meq/L Bedside Blood Gas O2 Saturation 99.0 % Jatin Test NA Oxygen Delivery Device Ventilator Bedside Oxygen Rate (breaths/min) 28 Bedside FiO2 55 % Blood Gas PEEP 0 Test 10/08/16 22:20 10/08/16 23:55 10/08/16 23:56 10/09/16 01:32 Phosphorus Level 2.5 mg/dl Creatine Kinase MB 32.1 ng/ml Troponin I 11.400 ng/ml Bedside Glucose 141 mg/dl Magnesium Level 5.2 mg/dl Theophylline Level 4 mcg/ml Blood Gas Sample Site Art Line Bedside Blood Gas pH (LAB) 7.14 Bedside Blood Gas pCO2 (LAB) 93 mmHg Bedside Blood Gas pO2 (LAB) 138 mmHg Bedside Blood Gas HCO3 (LAB) 32 meq/L Bedside Blood Gas Total CO2 35 mEq/l Bedside Blood Gas Base Excess (LAB) 3.0 meq/L Bedside Blood Gas O2 Saturation 98.0 % Jatin Test NA Oxygen Delivery Device Ventilator Bedside Oxygen Rate (breaths/min) 28 Bedside FiO2 55 % Blood Gas PEEP 0 Test 10/09/16 04:31 10/09/16 05:36 10/09/16 05:40 10/09/16 07:51 White Blood Count 11.10 K/uL Red Blood Count 4.04 M/uL Hemoglobin 13.3 g/dL Hematocrit 40.6 % Mean Corpuscular Volume 100.5 fL Mean Corpuscular Hemoglobin 32.9 pg Mean Corpuscular Hemoglobin Concent 32.8 g/dl RDW Standard Deviation 50.9 fL RDW Coefficient of Variation 13.7 % Platelet Count 370 K/uL Mean Platelet Volume 8.6 fL Sodium Level 147 mmol/L Potassium Level 4.6 mmol/L Chloride Level 109 mmol/L Carbon Dioxide Level 33 mmol/L Anion Gap 5.0 mmol/L Blood Urea Nitrogen 14 mg/dl Creatinine 0.48 mg/dl Est Creatinine Clear Calc Drug Dose 77.9 ml/min Estimated GFR () 133.5 Estimated GFR (Non- 115.2 BUN/Creatinine Ratio 28.4 Random Glucose 141 mg/dl Calcium Level 6.7 mg/dl Magnesium Level 3.0 mg/dl Theophylline Level 4 mcg/ml Blood Gas Sample Site Art Line Art Line Bedside Blood Gas pH (LAB) 7.17 7.23 Bedside Blood Gas pCO2 (LAB) 87 mmHg 73 mmHg Bedside Blood Gas pO2 (LAB) 173 mmHg 179 mmHg Bedside Blood Gas HCO3 (LAB) 32 meq/L 31 meq/L Bedside Blood Gas Total CO2 34 mEq/l 33 mEq/l Bedside Blood Gas Base Excess (LAB) 3.0 meq/L 3.0 meq/L Bedside Blood Gas O2 Saturation 99.0 % 99.0 % Jatin Test NA NA Oxygen Delivery Device Ventilator Ventilator Bedside Oxygen Rate (breaths/min) 28 28 Bedside FiO2 55 % 55 % Blood Gas PEEP 0 0 Bedside Glucose 131 mg/dl Test 10/09/16 08:37
[2016-10-09 09:25] LABS: ISTAT ARTERIAL BLOOD GAS HCO3 31 meq/L (19-24); ISTAT ARTERIAL BLOOD GAS PCO2 72 mmHg (35-46); ISTAT ARTERIAL BLOOD GAS PO2 127 mmHg (80-95); ISTAT ARTERIAL BLOOD GAS pH 7.23 (7.35-7.45); ISTAT CARBON DIOXIDE 33 mEq/l (24-31); ISTAT DELIVERY SYSTEM Ventilator; ISTAT FIO2 45 %; ISTAT PEEP 0; ISTAT RATE 28; ISTAT SITE Art Line
[2016-10-09] MEDS ORDERED: DIGOXIN IV 250 MCG in SYRINGE 9 ML IV ONE (09:30)
[2016-10-09] MEDS: PANTOprazole INJ 40 MG in SYRINGE 0 ML IV SCH (09:52)
[2016-10-09] MEDS: CHLORHEXIDINE GLUCONATE 0.12% 480 ML MT SCH (09:53)
[2016-10-09] MEDS: METHYLPREDNISOLONE 30 MG in SYRINGE 0 ML IV SCH ×2 (09:53→21:14)
[2016-10-09] MEDS: OSELTAMIVIR PHOSPHATE 6 MG/ML SUSP PO SCH ×2 (09:53→21:32)
[2016-10-09] MEDS: HEPARIN 25,000 UNIT/500ML D5W 500 ML IV PRN (09:55)
[2016-10-09 10:41] LABS: ISTAT ARTERIAL BLOOD GAS HCO3 33 meq/L (19-24); ISTAT ARTERIAL BLOOD GAS PCO2 73 mmHg (35-46); ISTAT ARTERIAL BLOOD GAS PO2 98 mmHg (80-95); ISTAT ARTERIAL BLOOD GAS pH 7.26 (7.35-7.45); ISTAT CARBON DIOXIDE 35 mEq/l (24-31); ISTAT DELIVERY SYSTEM Ventilator; ISTAT FIO2 40 %; ISTAT PEEP 0; ISTAT RATE 28; ISTAT SITE Art Line
--- NOTE | 2016-10-09 12:34 | Clinical Documentation Query ---
LON Milton : CLINICAL DOCUMENTATION QUERY Patient a 51 year old female admitted with acute hypercarbic respiratory failure in the setting of pneumonia and COPD exacerbation. Serum troponin on admission of 8.26 with rise 12.2 ng/ml to date. CK-MB 6 on admission with rise to 32 ng/ml. Echocardiogram demonstrated severely reduced LV systolic function with an estimated LVEF of 20-25%. There was diffuse LV hypokinesis to akinesis at the mid and apical levels with comparative sparing of the basal segments. Wall motion abnormalities and LVEF reduction new compared to 2015 echocardiogram. Diagnoses include stress induced cardiomyopathy. In your clinical opinion is this patient being managed for: ( ) Type II CO secondary to supply-demand mismatch (as opposed to acute intracoronary thrombosis) in the setting of stress induced cardiomyopathy ( ) Other explanation of clinical findings (Please Explain) ( ) Unable to determine (Please Define) ( ) Need to Discuss ( ) Not Agree The medical record reflects the following clinical findings, treatment, and risk factors. Clinical Indicators: As above Treatment: Rate control with IV cardizem Risk Factors: Infection, severe sepsis, tachycardia, hypertension, smoking history, acute respiratory failure The five types of acute CO compose five separate situations that produce myocardial ischemia and myocardial-cell : 1. A primary coronary event, such as plaque rupture or dissection. 2. A problem of oxygen supply and demand, such as coronary spasm, coronary embolism, arrhythmia, anemia, or hypotension. 3. Sudden cardiac that includes signs and symptoms of myocardial ischemia, such as ECG changes, but which produces before a blood sample can be obtained or when occurs during the lag period before serum markers appear in the blood. 4. Percutaneous coronary intervention. 5. Coronary artery bypass grafting. Please clarify and document your clinical opinion in the progress notes and discharge summary. Terms such as "probable", "suspected", "likely", "questionable", "possible", or "still to be ruled out" are acceptable. IF IN AGREEMENT, YOU MUST DOCUMENT ABOVE DIAGNOSTIC STATEMENT IN DAILY PROGRESS NOTES AND DISCHARGE SUMMARY. This document is not part of the patient's record. Thank You, Bijan Cole, RN [phone]
[2016-10-09] MEDS: IMPACT LIQ 1000 ML BAG OG SCH (12:38)
[2016-10-09] MEDS: BRIMONIDINE TARTRATE-P 0.15% 5 ML BTL OPL SCH ×2 (12:39→21:29)
[2016-10-09] MEDS: PrednisoLONE ACET 1% OP SUSP 5 ML BTL OPB SCH ×2 (12:39→21:29)
[2016-10-09] MEDS: DORZOLAMIDE/TIMOLOL 22.3/6.8MG/ML 10 ML BTL OPB SCH ×2 (12:39→21:29)
[2016-10-09 12:52] LABS: MAGNESIUM 2.5 mg/dl (1.8-2.4); PHOSPHORUS 2.4 mg/dl (2.5-4.9)
[2016-10-09 14:47] LABS: ISTAT ARTERIAL BLOOD GAS HCO3 33 meq/L (19-24); ISTAT ARTERIAL BLOOD GAS PCO2 77 mmHg (35-46); ISTAT ARTERIAL BLOOD GAS PO2 111 mmHg (80-95); ISTAT ARTERIAL BLOOD GAS pH 7.23 (7.35-7.45); ISTAT CARBON DIOXIDE 35 mEq/l (24-31); ISTAT DELIVERY SYSTEM Ventilator; ISTAT FIO2 40 %; ISTAT PEEP 0; ISTAT RATE 28; ISTAT SITE Art Line
--- NOTE | 2016-10-09 15:46 | DIAGNOSTIC IMAGING REPORT ---
ULTRASOUND BILATERAL LOWER EXTREMITY VENOUS CLINICAL HISTORY: Respiratory failure. Clinical concern for deep venous thrombosis. COMPARISON STUDY: No priors. TECHNIQUE: Real-time, grayscale, and color Doppler sonography of the deep veins of the right and left lower extremity was performed from the inguinal crease to the calf. Compression and augmentation were utilized. FINDINGS: Right lower extremity: There is no sonographic evidence of deep venous thrombosis identified within the visualized vessels in the right lower extremity. The mid to distal superficial femoral and popliteal veins are patent and normally compressible. The visualized calf veins are patent. The right common femoral vein as well as the proximal portion of the superficial femoral vein were not visualized, nor with the greater saphenous and profunda femoris veins at the junction of the common femoral vein secondary to overlying dressings. Left lower extremity: There is no sonographic evidence of deep venous thrombosis identified in the left lower extremity. The common femoral, superficial femoral, and popliteal veins are patent and normally compressible. The greater saphenous vein and the profunda femoris vein at the junction with the common femoral vein are clear. The visualized calf veins are patent. IMPRESSION: There is no sonographic evidence of deep venous thrombosis identified within the visualized vessels of the right or left lower extremity. See above. Electronically signed by: Colten Esqueda M.D. 10/09/2016 3:45 PM Dictated Date/Time: 10/09/2016 3:42 PM
[2016-10-09] MEDS ORDERED: DIGOXIN IV 125 MCG in SYRINGE 9.5 ML IV ONE (16:00)
[2016-10-09 16:10] LABS: ISTAT ARTERIAL BLOOD GAS HCO3 32 meq/L (19-24); ISTAT ARTERIAL BLOOD GAS PCO2 74 mmHg (35-46); ISTAT ARTERIAL BLOOD GAS PO2 76 mmHg (80-95); ISTAT ARTERIAL BLOOD GAS pH 7.23 (7.35-7.45); ISTAT CARBON DIOXIDE 34 mEq/l (24-31); ISTAT DELIVERY SYSTEM Ventilator; ISTAT FIO2 35 %; ISTAT PEEP 0; ISTAT RATE 28; ISTAT SITE Art Line
[2016-10-09 18:23] LABS: PARTIAL THROMBOPLASTIN RATIO 3.4
[2016-10-09] MEDS ORDERED: POTASSIUM PHOS 3 MMOL/1 ML INFUSION IV STA (18:35)
[2016-10-09] MEDS ORDERED: POTASSIUM PHOSPHATE INJ 30 MMOL in SODIUM CHLORIDE 0.9% 500ML 500 ML IV ONE (20:00)
--- NOTE | 2016-10-09 20:07 | Progress Note ---
Medicine Progress Note Date & Time of Visit: Oct 09, 2016 at 19:25. Subjective Pt was seen and examined sedated on vent support Family at bedside Objective Last 8 Hrs Date Time Temp Pulse Resp B/P Pulse Ox O2 Delivery O2 Flow Rate FiO2 10/09/16 19:06 35 10/09/16 18:05 118 28 112/67 98 Mechanical Ventilator 35 10/09/16 16:07 35 10/09/16 16:00 Mechanical Ventilator 35 10/09/16 16:00 118 28 106/62 96 Mechanical Ventilator 35 10/09/16 16:00 40 10/09/16 15:30 122 10/09/16 14:54 35 10/09/16 14:22 112 28 99/59 96 Mechanical Ventilator 40 10/09/16 12:00 40 10/09/16 12:00 119 28 104/62 96 Mechanical Ventilator 40 10/09/16 12:00 Mechanical Ventilator 40 10/09/16 11:33 40 Physical Exam: General- sedated on ventilator support Head- atraumatic Eyes- PERRL ENT- ET tub in good position Neck- supple, no JVD Lungs- Coarse BS Heart- tachycardia, no murmur Abdomen- hypoactive bowel sounds Extremities-no calf tenderness Neuro- Sedated on versed drip Skin- warm & dry Laboratory Results: Last 24 Hours Test 10/08/16 20:07 10/08/16 22:00 10/08/16 22:02 10/08/16 22:20 Sodium Level 148 mmol/L Potassium Level 2.6 mmol/L Chloride Level 107 mmol/L Carbon Dioxide Level 32 mmol/L Anion Gap 9.0 mmol/L Blood Urea Nitrogen 13 mg/dl Creatinine 0.64 mg/dl Est Creatinine Clear Calc Drug Dose 58.4 ml/min Estimated GFR () 121.4 Estimated GFR (Non- 104.8 BUN/Creatinine Ratio 20.9 Random Glucose 190 mg/dl Calcium Level 6.9 mg/dl Magnesium Level 4.7 mg/dl Total Bilirubin 0.2 mg/dl Aspartate Amino Transf (AST/SGOT) 67 U/L Alanine Aminotransferase (ALT/SGPT) 25 U/L Alkaline Phosphatase 110 U/L Total Protein 6.1 gm/dl Albumin 2.3 gm/dl Globulin 3.8 gm/dl Albumin/Globulin Ratio 0.6 Theophylline Level 5 mcg/ml Creatine Kinase MB Ratio Blood Gas Sample Site Art Line Bedside Blood Gas pH (LAB) 7.23 Bedside Blood Gas pCO2 (LAB) 73 mmHg Bedside Blood Gas pO2 (LAB) 181 mmHg Bedside Blood Gas HCO3 (LAB) 31 meq/L Bedside Blood Gas Total CO2 33 mEq/l Bedside Blood Gas Base Excess (LAB) 3.0 meq/L Bedside Blood Gas O2 Saturation 99.0 % Jatin Test NA Oxygen Delivery Device Ventilator Bedside Oxygen Rate (breaths/min) 28 Bedside FiO2 55 % Blood Gas PEEP 0 Phosphorus Level 2.5 mg/dl Creatine Kinase MB 32.1 ng/ml Troponin I 11.400 ng/ml Test 10/08/16 23:55 10/08/16 23:56 10/09/16 01:32 10/09/16 04:31 Bedside Glucose 141 mg/dl Magnesium Level 5.2 mg/dl 3.0 mg/dl Theophylline Level 4 mcg/ml 4 mcg/ml Blood Gas Sample Site Art Line Bedside Blood Gas pH (LAB) 7.14 Bedside Blood Gas pCO2 (LAB) 93 mmHg Bedside Blood Gas pO2 (LAB) 138 mmHg Bedside Blood Gas HCO3 (LAB) 32 meq/L Bedside Blood Gas Total CO2 35 mEq/l Bedside Blood Gas Base Excess (LAB) 3.0 meq/L Bedside Blood Gas O2 Saturation 98.0 % Jatin Test NA Oxygen Delivery Device Ventilator Bedside Oxygen Rate (breaths/min) 28 Bedside FiO2 55 % Blood Gas PEEP 0 White Blood Count 11.10 K/uL Red Blood Count 4.04 M/uL Hemoglobin 13.3 g/dL Hematocrit 40.6 % Mean Corpuscular Volume 100.5 fL Mean Corpuscular Hemoglobin 32.9 pg Mean Corpuscular Hemoglobin Concent 32.8 g/dl RDW Standard Deviation 50.9 fL RDW Coefficient of Variation 13.7 % Platelet Count 370 K/uL Mean Platelet Volume 8.6 fL Sodium Level 147 mmol/L Potassium Level 4.6 mmol/L Chloride Level 109 mmol/L Carbon Dioxide Level 33 mmol/L Anion Gap 5.0 mmol/L Blood Urea Nitrogen 14 mg/dl Creatinine 0.48 mg/dl Est Creatinine Clear Calc Drug Dose 77.9 ml/min Estimated GFR () 133.5 Estimated GFR (Non- 115.2 BUN/Creatinine Ratio 28.4 Random Glucose 141 mg/dl Calcium Level 6.7 mg/dl Troponin I 12.200 ng/ml Test 10/09/16 05:36 10/09/16 05:40 10/09/16 07:51 10/09/16 09:11 Blood Gas Sample Site Art Line Art Line Art Line Bedside Blood Gas pH (LAB) 7.17 7.23 7.23 Bedside Blood Gas pCO2 (LAB) 87 mmHg 73 mmHg 72 mmHg Bedside Blood Gas pO2 (LAB) 173 mmHg 179 mmHg 127 mmHg Bedside Blood Gas HCO3 (LAB) 32 meq/L 31 meq/L 31 meq/L Bedside Blood Gas Total CO2 34 mEq/l 33 mEq/l 33 mEq/l Bedside Blood Gas Base Excess (LAB) 3.0 meq/L 3.0 meq/L 3.0 meq/L Bedside Blood Gas O2 Saturation 99.0 % 99.0 % 98.0 % Jatin Test NA NA NA Oxygen Delivery Device Ventilator Ventilator Ventilator Bedside Oxygen Rate (breaths/min) 28 28 28 Bedside FiO2 55 % 55 % 45 % Blood Gas PEEP 0 0 0 Bedside Glucose 131 mg/dl Test 10/09/16 10:27 10/09/16 11:45 10/09/16 14:26 10/09/16 14:34 Blood Gas Sample Site Art Line Art Line Bedside Blood Gas pH (LAB) 7.26 7.23 Bedside Blood Gas pCO2 (LAB) 73 mmHg 77 mmHg Bedside Blood Gas pO2 (LAB) 98 mmHg 111 mmHg Bedside Blood Gas HCO3 (LAB) 33 meq/L 33 meq/L Bedside Blood Gas Total CO2 35 mEq/l 35 mEq/l Bedside Blood Gas Base Excess (LAB) 5.0 meq/L 5.0 meq/L Bedside Blood Gas O2 Saturation 96.0 % 97.0 % Jatin Test NA NA Oxygen Delivery Device Ventilator Ventilator Bedside Oxygen Rate (breaths/min) 28 28 Bedside FiO2 40 % 40 % Blood Gas PEEP 0 0 Phosphorus Level 2.4 mg/dl Magnesium Level 2.5 mg/dl Theophylline Level 5 mcg/ml Bedside Glucose 136 mg/dl Test 10/09/16 15:57 10/09/16 17:39 Blood Gas Sample Site Art Line Bedside Blood Gas pH (LAB) 7.23 Bedside Blood Gas pCO2 (LAB) 74 mmHg Bedside Blood Gas pO2 (LAB) 76 mmHg Bedside Blood Gas HCO3 (LAB) 32 meq/L Bedside Blood Gas Total CO2 34 mEq/l Bedside Blood Gas Base Excess (LAB) 4.0 meq/L Bedside Blood Gas O2 Saturation 92.0 % Jatin Test NA Oxygen Delivery Device Ventilator Bedside Oxygen Rate (breaths/min) 28 Bedside FiO2 35 % Blood Gas PEEP 0 Phosphorus Level 1.5 mg/dl Assessment & Plan Acute hypercapnic respiratory acidosis/Sepsis -Secondary to COPD exacerbation and multilobar pneumonia VS influenza -Sedated with versed on vent support -On broad spectrum IV antibiotics with Zosyn, vanco and Doxy - Continue IV steroid and theophylline -Blood cx pending -Urine cx and sputum cx no growth so far -received Bicarb, PH 7.26 - Monitor ABG and electrolytes -Continue monitor in the ICU -Continue IVF ELEVATED TROPONIN - Possible related to sepsis and respiratory acidosis that lead to cardiac ischemia - Mostly stress induce cardiomyopathy - EKG did not show any ST depression - Troponin on admission 8, then increase to 11 ----> 12 - Started on heparin drip by Cardio - Continue Aspirin. No B Barb to avoid bronchospasm - Echo showed * The study was performed on and urgent basis in the ICU, Bed 108 due to ventilator dependent respiratory failure, and elevted troponin I. * Sinus tachycardia at 125 bpm was present during the echocardiogram study. * There is diffuse left ventricular hypokinesis to akinesis at the mid and apical levels with comparative sparing of the basal segments. * Left ventricular systolic function is severely reduced. * The qualitative left ventricular Ejection Fraction = 20-25%. * The right ventricle is normal in size and function. * There is mild tricuspid regurgitation. * The calculated pulmonary artery systolic pressure is normal, 35 mm Hg. * There is no evidence of atrial septal defect, but resolution does not allow assessment for a patent foramen ovale. SINUS TACHYCARDIA Possible related to sepsis Diltiazem was started yesterday and D/C today due to the inotropic effect Avoid Beta barb for possible bronchospasm Digoxin was started by cardiology might possible due to PE, she is already on heparin drip Venous doppler u/s negative for DVT Continue monitor Pt INFLUENZA A Continue oseltamivir for 5 days. HTN - Diltiazem was discontinue -BP stable GI px PPI DVT PROPHYLAXIS - On heparin drip Code Status FULL CODE Consultants: Cardio [employer] [employer] Current Inpatient Medications: Current Inpatient Medications Medications (Trade) Dose Ordered Sig/Rajan Route Start Time Stop Time Status Last Admin Dose Admin Midazolam HCl (Midazolam 125MG/ 250ML D5w) 250 ml @ 0 mls/hr Q0M PRN IV 10/08/16 12:00 11/07/16 11:59 10/08/16 12:02 4 MLS/HR Vancomycin HCl 1 ea 1 ea UD N/A 10/08/16 14:45 11/07/16 14:44 Doxycycline Hyclate 100 mg/ Dextrose 110 ml @ 50 mls/hr Q12H IV 10/09/16 04:00 10/16/16 03:59 10/09/16 16:45 50 MLS/HR Pantoprazole Sodium 40 mg/ Syringe 10 ml @ 5 mls/min DAILY@11 IV 10/09/16 11:00 11/08/16 10:59 10/09/16 09:52 5 MLS/MIN Piperacillin Sod/ Tazobactam Sod/ Dextrose (Zosyn Iv/D5 100ml) 115 ml @ 28.75 mls/ hr Q8H IV 10/08/16 22:00 10/15/16 21:59 10/09/16 14:23 28.75 MLS/HR Piperacillin Sod/ Tazobactam Sod 1 ea 1 ea UD N/A 10/08/16 15:00 11/07/16 14:59 Diltiazem HCl/ Dextrose (Cardizem Inj/D5 100ml) 125 ml @ 0 mls/hr Q0M PRN IV 10/08/16 15:15 11/07/16 15:14 Oseltamivir Phosphate 150 mg 150 mg BID PO 10/08/16 21:00 10/13/16 20:59 10/09/16 09:53 150 MG Aminophylline 500 mg/Dextrose 500 ml @ 21.6 mls/hr Q23H9M PRN IV 10/08/16 18:00 11/07/16 17:59 10/08/16 21:30 8.7 MLS/HR Methylprednisolone Sodium Succinate/ Syringe (Solu-Medrol IV/ Syringe) 0.48 ml @ 1.5 mls/min Q12H IV 10/09/16 09:00 11/08/16 08:59 10/09/16 09:53 1.5 MLS/MIN Fentanyl Citrate (Fentanyl Inj) 50 mcg Q2H PRN IV 10/09/16 08:30 10/23/16 08:29 Levalbuterol (Xopenex Hfa Inhaler) 4 puffs Q4R INH 10/09/16 12:00 11/08/16 11:59 10/09/16 19:06 4 PUFFS Aspirin 81 mg 81 mg DAILY PEG 10/10/16 09:00 11/09/16 08:59 Heparin Sodium/ Dextrose (Heparin 25,000 Unit/500ml D5W) 500 ml @ 13 mls/hr Q24H PRN IV 10/09/16 09:45 11/08/16 09:44 10/09/16 09:55 13 MLS/HR Brimonidine Tartrate (Alphagan-P 0.15% Oph Soln) 1 drops BID OPL 10/09/16 11:00 11/08/16 10:59 10/09/16 12:39 1 DROPS Dorzolamide/ Timolol (Cosopt Op Soln) 1 drops BID OPB 10/09/16 11:00 11/08/16 10:59 10/09/16 12:39 1 DROPS Prednisolone Acetate (Pred Forte 1% Oph Susp) 1 drops BID OPB 10/09/16 11:00 11/08/16 10:59 10/09/16 12:39 1 DROPS Enteral Nutritional Formula 1000 ml 1,000 ml UD OG 10/09/16 11:15 11/08/16 11:14 10/09/16 12:38 1,000 ML Vancomycin HCl/ Sodium Chloride (Vancomycin Inj/ Nss 100ml) 111 ml @ 55.5 mls/hr Q10H IV 10/09/16 22:00 10/16/16 01:59 Potassium/ Phosphorus/Sodium 1 tab 1 tab QID PO 10/09/16 21:00 11/08/16 20:59 Potassium Phosphate/Sodium Chloride (Potassium Phosphate Inj/Nss 500ml) 510 ml @ 102 mls/hr TODAY@2000 ONCE IV 10/09/16 20:00 10/10/16 00:59
[2016-10-09] MEDS ORDERED: DIGOXIN IV 125 MCG in SYRINGE 9.5 ML IV STA (21:16)
[2016-10-09] MEDS: POT PHOSPHATE MONOBASIC W/ SOD TAB PO SCH (21:29)
[2016-10-09] MEDS: MIDAZOLAM 125MG/250ML D5W 250 ML IV PRN (21:42)
[2016-10-09] MEDS ORDERED: METOPROLOL TARTRATE 1 MG/ML VIAL IV STA (22:58)
[2016-10-10] VITALS (35 sets, daily range): BP systolic 92–138; BP diastolic 58–90; PULSE 117–140; TEMP 36.9–39.1; O2SAT 91–100
[2016-10-10] MEDS ORDERED: METOPROLOL TARTRATE 1 MG/ML VIAL ONE ×2 (02:07→10:10)
[2016-10-10] MEDS: AMINOPHYLLINE IV PRN (02:43)
[2016-10-10] MEDS: DEXTROSE 5% IV PRN (02:43)
[2016-10-10 03:00] LABS: PARTIAL THROMBOPLASTIN RATIO 3.6
[2016-10-10] MEDS: DOXYCYCLINE IV 100 MG in DEXTROSE 5% 100ML 100 ML IV SCH ×2 (04:26→15:48)
[2016-10-10 05:55] LABS: HEMATOCRIT 37.8 % (37-47); MEAN CELL VOLUME 100.5 fL (80-100); MEAN CORPUSCULAR HEMOGLOBIN 31.9 pg (25-34); MEAN CORPUSCULAR HGB CONC 31.7 g/dl (32-36); MEAN PLATELET VOLUME 8.7 fL (7.4-10.4); PLATELET COUNT 413 K/uL (130-400); RED BLOOD COUNT 3.76 M/uL (4.2-5.4); WHITE BLOOD COUNT 11.78 K/uL (4.8-10.8)
[2016-10-10] MEDS: PIPERACILL/TAZOBAC IV 3.375 GM in DEXTROSE 5% 100ML IV SCH ×2 (06:00→13:09)
[2016-10-10 06:15] LABS: PARTIAL THROMBOPLASTIN RATIO 3.1
[2016-10-10 06:25] LABS: ALT/SGPT 69 U/L (12-78); AST/SGOT 140 U/L (15-37); BLOOD UREA NITROGEN 12 mg/dl (7-18); BUN/CREATININE RATIO 40.8 (10-20); CALCIUM 7.1 mg/dl (8.5-10.1); CARBON DIOXIDE 35 mmol/L (21-32); CHLORIDE 103 mmol/L (98-107); GLUCOSE 178 mg/dl (70-99); SODIUM 143 mmol/L (136-145)
[2016-10-10 06:33] LABS: ALB/GLOB RATIO 0.7 (0.9-2); ALKALINE PHOSPHATASE 107 U/L (45-117); PHOSPHORUS 1.8 mg/dl (2.5-4.9)
[2016-10-10] MEDS ORDERED: VANCOMYCIN TROUGH SCH (07:30)
[2016-10-10] MEDS: LEValbuterol HFA 15GM INHALER INH SCH ×4 (07:40→20:00)
[2016-10-10] MEDS: PANTOprazole INJ 40 MG in SYRINGE 0 ML IV SCH (08:10)
[2016-10-10] MEDS: SODIUM CHLORIDE 0.9% IV SCH (08:10)
[2016-10-10] MEDS: VANCOMYCIN IV SCH (08:10)
[2016-10-10] MEDS: OSELTAMIVIR PHOSPHATE 6 MG/ML SUSP PO SCH ×2 (08:10→21:09)
[2016-10-10] MEDS: METHYLPREDNISOLONE 30 MG in SYRINGE 0 ML IV SCH (08:11)
[2016-10-10] MEDS: DORZOLAMIDE/TIMOLOL 22.3/6.8MG/ML 10 ML BTL OPB SCH ×2 (08:11→21:08)
[2016-10-10] MEDS: POT PHOSPHATE MONOBASIC W/ SOD TAB PO SCH ×4 (08:11→21:08)
[2016-10-10] MEDS: ASPIRIN 81 MG CHEW PEG SCH (08:11)
[2016-10-10] MEDS: PrednisoLONE ACET 1% OP SUSP 5 ML BTL OPB SCH ×2 (08:11→21:08)
[2016-10-10] MEDS: BRIMONIDINE TARTRATE-P 0.15% 5 ML BTL OPL SCH ×2 (08:11→21:09)
[2016-10-10 08:21] LABS: ISTAT ARTERIAL BLOOD GAS HCO3 35 meq/L (19-24); ISTAT ARTERIAL BLOOD GAS PCO2 65 mmHg (35-46); ISTAT ARTERIAL BLOOD GAS PO2 72 mmHg (80-95); ISTAT ARTERIAL BLOOD GAS pH 7.33 (7.35-7.45); ISTAT CARBON DIOXIDE 37 mEq/l (24-31); ISTAT HEMATOCRIT 33 % (37-47); ISTAT HEMOGLOBIN 11.2 g/dl (12.0-16.0); ISTAT SODIUM 140 mEq/L (135-144)
[2016-10-10] MEDS ORDERED: NURSING VERBAL MED ORDER ONE ×3 (09:00→10:30)
[2016-10-10] MEDS ORDERED: DIGOXIN IV 250 MCG in SYRINGE 9 ML IV ONE (09:30)
[2016-10-10] MEDS ORDERED: POTASSIUM PHOSPHATE INJ 30 MMOL in SODIUM CHLORIDE 0.9% 500ML 500 ML IV SCH (09:30)
[2016-10-10 09:31] LABS: PARTIAL THROMBOPLASTIN RATIO 3.2
[2016-10-10] MEDS: FENTANYL CITRATE INJ 50 MCG/1 ML 2 ML VIAL IV PRN ×3 (09:55→17:25)
[2016-10-10] MEDS ORDERED: METHYLPREDNISOLONE IV 30 MG in SYRINGE 0 ML IV SCH (10:30)
--- NOTE | 2016-10-10 10:52 | DIAGNOSTIC IMAGING REPORT ---
SINGLE VIEW CHEST CLINICAL HISTORY: Respiratory failure. FINDINGS: An AP, portable, upright chest radiograph is compared to study dated 10/09/2016 and correlated with chest CT dated 07/04/2015. The examination is degraded by portable technique and patient rotation. Endotracheal and enteric tubes are unchanged in position. The heart is normal for projection. Enlargement of the central pulmonary vessels is consistent with pulmonary artery hypertension. Mild vascular congestion persists. There is atherosclerotic calcification of the thoracic aorta. Advanced emphysema and chronic interstitial thickening is similar to previous. Scarlike opacities in the left midlung and nodular densities in the right peripheral lung are similar to previous. There is no evidence of superimposed airspace consolidation typical for pneumonia. A trace left pleural effusion persists. Biapical scarring is observed. No pneumothorax is seen. The skeletal structures are osteopenic. The bony thorax is grossly intact. IMPRESSION: 1. Stable lines and tubes. 2. There is mild persistent pulmonary vascular congestion. This is unchanged to modestly improved from yesterday. 3. Advanced emphysema and chronic parenchymal changes as above. 4. A trace left pleural effusion persists. Electronically signed by: Colten Esqueda M.D. 10/10/2016 10:50 AM Dictated Date/Time: 10/10/2016 10:47 AM
--- NOTE | 2016-10-10 11:03 | CARDIOLOGY PROGRESS NOTE ---
DATE: 10/10/2016 DATE: 10/10/2016. The patient seen and examined. Chart, medications, telemetry reviewed. SUBJECTIVE: The patient remains intubated and sedated with intermittent agitation. Oxygen saturations have had transient drops this morning as well as persistent elevation in heart rates. The patient is unable to add additional information. OBJECTIVE: VITAL SIGNS: Heart rate is 140, blood pressure is 138/82. NECK: Thin. There is minimal jugular venous distention. LUNGS: Reveal coarse upper airway sounds. CARDIOVASCULAR EXAMINATION: Regular. There is no S3 gallop. ABDOMEN: Soft. EXTREMITIES: Without significant edema, multiple lines are present. LABORATORY STUDIES: White cell count 11.7, hemoglobin is 12.0. Sodium 143, potassium is 4.0, chloride is 103, bicarbonate 35, BUN is 12, creatinine 0.3. Albumin level is 2.4. Digoxin level 0.7. EKG reveals sinus tachycardia, rate 140. IMPRESSION: Critically ill 51-year-old female presents with acute respiratory failure complicated by echocardiographic and enzymatic changes suggestive of catecholamine mediated cardiomyopathy. RECOMMENDATIONS: Additional dose of digoxin has been given this morning though rhythm is predominantly sinus tachycardia. Ultimate goal will be to titration of beta blockers as long as pulmonary status allows. Would recommend tapering or weaning aminophylline off if possible. Continue respiratory support. We will continue to follow patient in the hospital.
[2016-10-10] MEDS: METOPROLOL TARTRATE 1 MG/ML VIAL IV. SCH ×3 (12:28→20:36)
--- NOTE | 2016-10-10 13:43 | Pharmacy Progress Note ---
Pharmacy Antibiotic Prog Note Date of Service: Oct 10, 2016. Subjective: The patient is currently receiving Vanco/Zosyn/Doxy Objective: Height (Feet): 5 Height (Inches): 1.00 Weight (Kilograms): 37.800 Levels: Item Value Date Time Vancomycin Level Trough 3.7 mcg/ml 10/10/16 0731 Lab Results (24hrs): Item Value Date Time Creatinine 0.30 mg/dl L 10/10/16 0536 Est Creatinine Clear Calc Drug Dose 132.5 ml/min 10/10/16 0536 Laboratory Tests Test 10/10/16 05:36 BUN/Creatinine Ratio 40.8 Blood Urea Nitrogen 12 mg/dl Creatinine 0.30 mg/dl White Blood Count 11.78 K/uL Micro Results: Item Value Date Time Urine Culture - Final Complete 10/08/16 1420 Urine,Catheterized NO GROWTH - LESS THAN 1,000 COLONIES/ML Gram Stain - Final Complete 10/08/16 1400 Sputum Trach. Tube Suction MRSA DNA Surveillance Screen - Final Complete 10/08/16 1345 Nasal Specimen Negative for MRSA by DNA Probe Blood Culture - Preliminary Resulted 10/08/16 1025 Blood NO GROWTH TO DATE. Blood Culture - Preliminary Resulted 10/08/16 1020 Blood NO GROWTH TO DATE. Assessment & Plan: Pt is a critically ill 51yo F p/w ARF. Currently, she is febrile, experiencing tachycardia, tachypnea, and leukocytosis. Renal fxn has continued to improve. Scr: 0.30 and eCrCl >120cc/min. C/s's all yield NGTD but will continue with antibiotics for now given the critical nature of Ms. Mak's status. This mornings trough lvl came back subtherapeutic at 3.7mcg/mL (appropriately drawn at 0730). I have chosen to re-bolus her with a one time Vanco 1000mg (25mg /kg) then set to receive subsequent doses of Vanco 600mg (15mg/kg) q8 starting at 2100 on 10/10/16. Pt population p'kinetics: t1/2=6.6hrs and ke=0.104. I have ordered a trough lvl for 10/11 prior to the 4th MD. Goal trough for now is 15- 20. Zosyn: EI 3.375g Q8, appropriate for eCrCl>20cc/min; however, the increased dose should be considered if she fails to improve. Pharmacy will continue to follow and will adjust dose/frequency as necessary. Thank you
[2016-10-10] MEDS ORDERED: VANCOMYCIN INJ 1,000 MG in SODIUM CHLORIDE 0.9% 250ML 250 ML IV ONE (14:00)
--- NOTE | 2016-10-10 14:38 | Critical Care Progress Note ---
Critical Care Progress Note Date of Service Oct 10, 2016. ICU Day ICU Day Number: [address] Mcfarland Subjective Patient intubated and sedated Objective Vital Signs - as noted Laboratory Data - as noted Physical Exam: General - Sedated, intubated Eyes - equal pupils, unresponsive to light,hazy left eye, No icterus, gaze conjugate ENT - ET Tube in place at 23cm with OG tube Neck - Supple, trachea midline, no masses or lymphadenopathy, no JVD or bruits Lungs - No paradoxical chest wall movement,Right: coarse with rhonchi throughout , Left: Rhonchi to upper long and wheezing mid and lower, distant breath sounds at base Heart - Sinus Tach 120-130's, No murmur, rubs, clicks, or gallops appreciated Abdomen - No BS noted, no bruits noted, tympanic to percussion, nontender, Moderately distended, no organomegaly Extremities - No edema, pedal pulses intact Neuro - A&OX0 Strength: Could not be assessed Reflexes: +1 Patellar reflex Bilaterally; Upgoing toes to plantar stimulation, Areflexive to Bicep and brachioradialis CN:equal pupils, unresponsive to light, no facial asymmetry Assessment & Plan (1) Acute hypercapnic respiratory failure Likely multifactorial; infectious process on chest x-ray (pneumonia), influenza A positive, and COPD exacerbation CXR 10/09/16: Near complete resolution of pulmonary edema pattern, prominent bilateral hilar and bilateral midlung zone densities persist, trace left pleural effusion. Sedation: * Will begin daily spontaneous awakening trials * Begin Fentanyl 50mcg q2hrs Intubated 7.5 ET Tube, 23cm at the lip Change event to pressure regulated volume control, tidal volume 300, FiO2 decreasing per protocol started 40%. Further Respiratory Regimen management per Dr. Mcfarland * Xopenex 4puffs QID * Terbutaline stopped * Theophylline stopped * Therapeutic magnesium stopped Can not currently rule out Pleural Embolism. Pt is not stable for transport at this time to CT. * Pt being treated with Heparin Infusion for possible stress induced NSTEMI * Bilateral lower extremity Dopplers negative * Solu-Medrol converted to 40 daily starting tomorrow morning Chlorhexadine Mouth Care in place HOB at 30* (2) Respiratory acidosis Received in ED: * 2Amps HCO3 * Negra dosed at 9ml/kg Received 2 additional Amps of HCO3 in ICU on evening of 10/08 Currently intubated and plan as above, respiration rate elevated to help blow off CO2 AGBs q4 or with changes (3) Pneumonia Cultures remain negative, influenza A positive, at this point is difficult for me to tell if there was a secondary bacterial infection. Given the significantly decreased lung reserve I am inclined to continue to treat her for a full 7 day course with the antibiotics Continue Broad Spectrum Abx: Day 3 * Doxycycline 100 mg IV every 12 hours * Vancomycin 550 mg IV every 10 * Zosyn 3.375 g IV every 8 hours (4) COPD exacerbation As noted in Resp Failure (5) Elevated troponin Dr. Cannon consulted: likely due to hypoxemia from acute illness Repeat EKG demonstrates improvement in ST depression in lateral leads Troponin trending up: 8.2 --> 11.1 --> 11.4 --> 12.2--> 9.5 Continue to trend troponin per Cardiology Start ASA chewable 81mg via OG Tube Heparin Infusion started by cardiology Monitor on telemetry Repeat EKG in AM Patient has had some increase in her heart rate lately. I think this may be to her theophylline infusion which has now been stopped. She is given additional doses of digoxin by cardiology, digoxin level was reviewed Overnight she was able to tolerate some doses of beta vivi Restarted her metoprolol 5 mg every 4 hours for tachycardia and stress-induced cardiomyopathy (6) Cardiomyopathy Dr. Krishnamurthy consulted. ECHO 10/08: Severe LV systolic dysfunction, LV ejection fraction 20-25% compared to normal EF in June [address] Krishnamurthy Avoiding Dobutamine for risk of V. Tach (7) Prolonged Q-T interval on ECG Dr. Krishnamurthy consulted: likely due to hypoxemia from acute illness D/C'd Levaquin Avoid QTc Prolonging Medications Repeat EKG in AM (8) Multiple sclerosis Follows with Dr. Fernandes [facility] as out-pt; consider consult as pt improves D/C'd Mg drip due to inability to follow toxicity with reflexes. Minimal reflexes noted due to neuromuscular dz of MS. Other Neuro: Reflexes noted as +1 on lower extremities today; still areflexive to upper extremities; likely due to multiple sclerosis Neuro checks per protocol Monitor clinically Nutrition: Increased to Feese today continue to monitor for refeeding syndrome, she's needed aliquots of potassium phosphorus accordingly. Patient is having bowel movements. On heparin infusion do not need prophylaxis, on a PPI for stress ulcer prophylaxis. I have personally spent 60 minutes of critical care time in the direct management of this patient. This is a life/limb threatening event. This includes time spent evaluating patient, direct bedside care, chart review, placing orders, interpretation of diagnostic studies, discussion with consultants, patient, and family members, as well as other required patient management activities. This time is exclusive of all separately billable procedures, and teaching time and separate from and in addition to any other critical care service time. Consults & Procedures Consultants: Cardiology: Dr. Krishnamurthy Pharmacy Procedures: R. Fem Central Line 10/08 R Fem Art Line 10/08 Data Medications: Current Inpatient Medications Medications (Trade) Dose Ordered Sig/Rajan Route Start Time Stop Time Status Last Admin Dose Admin Midazolam HCl (Midazolam 125MG/ 250ML D5w) 250 ml @ 0 mls/hr Q0M PRN IV 10/08/16 12:00 11/07/16 11:59 10/09/16 21:42 5 MLS/HR Vancomycin HCl 1 ea 1 ea UD N/A 10/08/16 14:45 11/07/16 14:44 Doxycycline Hyclate 100 mg/ Dextrose 110 ml @ 50 mls/hr Q12H IV 10/09/16 04:00 10/16/16 03:59 10/10/16 04:26 50 MLS/HR Pantoprazole Sodium 40 mg/ Syringe 10 ml @ 5 mls/min DAILY@11 IV 10/09/16 11:00 11/08/16 10:59 10/10/16 08:10 5 MLS/MIN Piperacillin Sod/ Tazobactam Sod/ Dextrose (Zosyn Iv/D5 100ml) 115 ml @ 28.75 mls/ hr Q8H IV 10/08/16 22:00 10/15/16 21:59 10/10/16 13:09 28.75 MLS/HR Piperacillin Sod/ Tazobactam Sod (Consult) 1 ea UD N/A 10/08/16 15:00 11/07/16 14:59 Oseltamivir Phosphate (Tamiflu Susp) 150 mg BID PO 10/08/16 21:00 10/13/16 20:59 10/10/16 08:10 150 MG Fentanyl Citrate (Fentanyl Inj) 50 mcg Q2H PRN IV 10/09/16 08:30 10/23/16 08:29 10/10/16 14:06 50 MCG Levalbuterol (Xopenex Hfa Inhaler) 4 puffs Q4R INH 10/09/16 12:00 11/08/16 11:59 10/10/16 11:40 4 PUFFS Aspirin 81 mg 81 mg DAILY PEG 10/10/16 09:00 11/09/16 08:59 10/10/16 08:11 81 MG Heparin Sodium/ Dextrose (Heparin 25,000 Unit/500ml D5W) 500 ml @ 10 mls/hr Q24H PRN IV 10/09/16 09:45 11/08/16 09:44 10/09/16 09:55 13 MLS/HR Brimonidine Tartrate (Alphagan-P 0.15% Oph Soln) 1 drops BID OPL 10/09/16 11:00 11/08/16 10:59 10/10/16 08:11 1 DROPS Dorzolamide/ Timolol (Cosopt Op Soln) 1 drops BID OPB 10/09/16 11:00 11/08/16 10:59 10/10/16 08:11 1 DROPS Prednisolone Acetate (Pred Forte 1% Oph Susp) 1 drops BID OPB 10/09/16 11:00 11/08/16 10:59 10/10/16 08:11 1 DROPS Enteral Nutritional Formula (Impact 1.0 Jaime) 1,000 ml UD OG 10/09/16 11:15 11/08/16 11:14 10/09/16 12:38 1,000 ML Potassium/ Phosphorus/Sodium (Phospha 250 Neutral 155-852-130 Mg) 1 tab QID PO 10/09/16 21:00 11/08/16 20:59 10/10/16 13:09 1 TAB Metoprolol Tartrate 5 mg 5 mg Q4 IV. 10/10/16 12:00 11/09/16 11:59 10/10/16 12:28 5 MG Methylprednisolone Sodium Succinate 40 mg/Syringe 0.64 ml @ 1.5 mls/min DAILY IV 10/11/16 09:00 11/10/16 08:59 Vancomycin HCl 1000 mg/Sodium Chloride 270 ml @ 125 mls/hr TODAY@1400 ONCE IV 10/10/16 14:00 10/10/16 16:09 10/10/16 14:06 125 MLS/HR Vancomycin HCl/ Sodium Chloride (Vancomycin Inj/ Nss 250ml) 262 ml @ 125 mls/hr Q8H IV 10/10/16 21:00 10/17/16 20:59 I & O: 24-Hour Column 10/10/16 08:00 Intake Total 2826 ml Output Total 1500 ml Balance 1326 ml Vital Signs: Date Time Temp Pulse Resp B/P Pulse Ox O2 Delivery O2 Flow Rate FiO2 10/10/16 14:22 36.9 128 28 122/72 94 Mechanical Ventilator 40 10/10/16 12:30 120 28 129/77 97 Mechanical Ventilator 10/10/16 12:28 136 134/79 10/10/16 12:00 Mechanical Ventilator 40 10/10/16 12:00 40 10/10/16 11:40 40 10/10/16 11:26 40 10/10/16 10:17 117 124/71 10/10/16 10:00 38.2 140 28 131/73 92 Mechanical Ventilator 10/10/16 09:43 40 10/10/16 09:42 140 10/10/16 09:40 50 10/10/16 08:00 Mechanical Ventilator 40 10/10/16 08:00 38.1 129 32 111/66 93 Mechanical Ventilator 10/10/16 08:00 40 10/10/16 07:40 30 10/10/16 06:00 37.8 140 35 138/82 94 10/10/16 05:58 37.8 140 35 118/83 93 10/10/16 05:28 37.8 135 37 130/90 93 10/10/16 05:10 30 10/10/16 05:00 37.8 134 36 138/85 94 10/10/16 04:58 37.8 135 37 123/83 95 10/10/16 04:28 37.8 134 37 121/81 94 10/10/16 04:24 Mechanical Ventilator 35 10/10/16 04:24 35 10/10/16 04:00 37.8 129 37 133/86 94 10/10/16 03:28 37.8 117 29 104/71 94 10/10/16 03:00 37.7 120 32 118/71 93 10/10/16 02:58 37.6 121 33 105/73 93 10/10/16 02:34 140 10/10/16 02:28 37.7 119 34 119/85 91 10/10/16 02:00 37.7 139 36 138/84 93 10/10/16 01:58 37.7 137 36 125/86 94 10/10/16 01:28 37.7 137 33 117/85 94 10/10/16 01:15 30 10/10/16 01:00 37.7 135 35 138/84 93 10/10/16 00:45 135 10/10/16 00:02 35 10/10/16 00:02 Mechanical Ventilator 35 10/10/16 00:00 37.6 124 34 129/80 92 10/09/16 23:58 37.6 123 33 112/80 92 10/09/16 23:28 138 33 126/89 92 10/09/16 23:00 37.6 138 32 140/83 94 10/09/16 22:58 136 32 124/86 94 10/09/16 22:33 30 10/09/16 22:28 133 31 125/86 94 10/09/16 22:00 37.6 134 32 131/77 95 10/09/16 21:58 134 29 125/83 96 10/09/16 21:43 137 10/09/16 21:28 134 30 113/80 95 10/09/16 21:00 134 30 126/73 96 10/09/16 20:58 134 30 117/80 96 10/09/16 20:28 125 29 112/79 99 10/09/16 20:04 35 10/09/16 20:04 Mechanical Ventilator 35 10/09/16 20:00 37.6 112 28 101/61 99 10/09/16 19:58 112 28 98/72 99 10/09/16 19:28 113 28 93/69 98 10/09/16 19:06 35 10/09/16 19:00 37.6 121 29 114/69 99 10/09/16 18:05 118 28 112/67 98 Mechanical Ventilator 35 10/09/16 16:07 35 10/09/16 16:00 Mechanical Ventilator 35 10/09/16 16:00 118 28 106/62 96 Mechanical Ventilator 35 10/09/16 16:00 40 10/09/16 15:30 122 10/09/16 14:54 35 Laboratory Results: Last 24 Hours Test 10/09/16 14:26 10/09/16 14:34 10/09/16 15:57 10/09/16 17:39 Bedside Glucose 136 mg/dl Blood Gas Sample Site Art Line Art Line Bedside Blood Gas pH (LAB) 7.23 7.23 Bedside Blood Gas pCO2 (LAB) 77 mmHg 74 mmHg Bedside Blood Gas pO2 (LAB) 111 mmHg 76 mmHg Bedside Blood Gas HCO3 (LAB) 33 meq/L 32 meq/L Bedside Blood Gas Total CO2 35 mEq/l 34 mEq/l Bedside Blood Gas Base Excess (LAB) 5.0 meq/L 4.0 meq/L Bedside Blood Gas O2 Saturation 97.0 % 92.0 % Jatin Test NA NA Oxygen Delivery Device Ventilator Ventilator Bedside Oxygen Rate (breaths/min) 28 28 Bedside FiO2 40 % 35 % Blood Gas PEEP 0 0 Activated Partial Thromboplast Time 89.2 SECONDS Partial Thromboplastin Ratio 3.4 Phosphorus Level 1.5 mg/dl Test 10/10/16 00:37 10/10/16 01:03 10/10/16 02:15 10/10/16 05:36 Bedside Glucose 144 mg/dl Phosphorus Level 3.5 mg/dl 1.8 mg/dl Theophylline Level 7 mcg/ml Activated Partial Thromboplast Time 94.8 SECONDS 79.8 SECONDS Partial Thromboplastin Ratio 3.6 3.1 White Blood Count 11.78 K/uL Red Blood Count 3.76 M/uL Hemoglobin 12.0 g/dL Hematocrit 37.8 % Mean Corpuscular Volume 100.5 fL Mean Corpuscular Hemoglobin 31.9 pg Mean Corpuscular Hemoglobin Concent 31.7 g/dl RDW Standard Deviation 51.2 fL RDW Coefficient of Variation 13.8 % Platelet Count 413 K/uL Mean Platelet Volume 8.7 fL Nucleated RBC Absolute Count (auto) 0.04 K/uL Nucleated Red Blood Cells % 0.4 % Sodium Level 143 mmol/L Potassium Level 4.0 mmol/L Chloride Level 103 mmol/L Carbon Dioxide Level 35 mmol/L Anion Gap 5.0 mmol/L Blood Urea Nitrogen 12 mg/dl Creatinine 0.30 mg/dl Est Creatinine Clear Calc Drug Dose 132.5 ml/min Estimated GFR () > 150.0 Estimated GFR (Non- 134.5 BUN/Creatinine Ratio 40.8 Random Glucose 178 mg/dl Calcium Level 7.1 mg/dl Total Bilirubin 0.2 mg/dl Aspartate Amino Transf (AST/SGOT) 140 U/L Alanine Aminotransferase (ALT/SGPT) 69 U/L Alkaline Phosphatase 107 U/L Troponin I 9.560 ng/ml Total Protein 6.0 gm/dl Albumin 2.4 gm/dl Globulin 3.6 gm/dl Albumin/Globulin Ratio 0.7 Digoxin Level 0.7 ng/ml Test 10/10/16 07:31 10/10/16 08:09 10/10/16 09:06 10/10/16 12:06 Vancomycin Level Trough 3.7 mcg/ml Bedside Hemoglobin 11.2 g/dl Bedside Hematocrit 33 % Bedside Blood Gas pH (LAB) 7.33 Bedside Blood Gas pCO2 (LAB) 65 mmHg Bedside Blood Gas pO2 (LAB) 72 mmHg Bedside Blood Gas HCO3 (LAB) 35 meq/L Bedside Blood Gas Total CO2 37 mEq/l Bedside Blood Gas Base Excess (LAB) 9.0 meq/L Bedside Blood Gas O2 Saturation 92.0 % Bedside Sodium 140 mEq/L Bedside Potassium 3.6 mEq/L Activated Partial Thromboplast Time 83.3 SECONDS Partial Thromboplastin Ratio 3.2 Magnesium Level 2.4 mg/dl Test 10/10/16 12:48 Bedside Glucose 176 mg/dl
--- NOTE | 2016-10-10 15:13 | Progress Note ---
Medicine Progress Note Date & Time of Visit: Oct 10, 2016 at 14:58. Subjective Pt was seen and examined Pt still sedated on ventilation support Family member present at bedside Objective Last 8 Hrs Date Time Temp Pulse Resp B/P Pulse Ox O2 Delivery O2 Flow Rate FiO2 10/10/16 14:22 36.9 128 28 122/72 94 Mechanical Ventilator 40 10/10/16 12:30 120 28 129/77 97 Mechanical Ventilator 10/10/16 12:28 136 134/79 10/10/16 12:00 Mechanical Ventilator 40 10/10/16 12:00 40 10/10/16 11:40 40 10/10/16 11:26 40 10/10/16 10:17 117 124/71 10/10/16 10:00 38.2 140 28 131/73 92 Mechanical Ventilator 10/10/16 09:43 40 10/10/16 09:42 140 10/10/16 09:40 50 10/10/16 08:00 Mechanical Ventilator 40 10/10/16 08:00 38.1 129 32 111/66 93 Mechanical Ventilator 10/10/16 08:00 40 10/10/16 07:40 30 Physical Exam: General- sedated on ventilator support Head- atraumatic Eyes- PERRL ENT- ET tub in good position Neck- supple, no JVD Lungs- Coarse BS Heart- tachycardia Abdomen- Hypoactive bowel sound Extremities-no calf tenderness Neuro- Sedated on versed drip Skin- warm & dry Laboratory Results: Last 24 Hours Test 10/09/16 15:57 10/09/16 17:39 10/10/16 00:37 10/10/16 01:03 Blood Gas Sample Site Art Line Bedside Blood Gas pH (LAB) 7.23 Bedside Blood Gas pCO2 (LAB) 74 mmHg Bedside Blood Gas pO2 (LAB) 76 mmHg Bedside Blood Gas HCO3 (LAB) 32 meq/L Bedside Blood Gas Total CO2 34 mEq/l Bedside Blood Gas Base Excess (LAB) 4.0 meq/L Bedside Blood Gas O2 Saturation 92.0 % Jatin Test NA Oxygen Delivery Device Ventilator Bedside Oxygen Rate (breaths/min) 28 Bedside FiO2 35 % Blood Gas PEEP 0 Activated Partial Thromboplast Time 89.2 SECONDS Partial Thromboplastin Ratio 3.4 Phosphorus Level 1.5 mg/dl 3.5 mg/dl Bedside Glucose 144 mg/dl Theophylline Level 7 mcg/ml Test 10/10/16 02:15 1/21/17 05:36 10/10/16 07:31 10/10/16 08:09 Activated Partial Thromboplast Time 94.8 SECONDS 79.8 SECONDS Partial Thromboplastin Ratio 3.6 3.1 White Blood Count 11.78 K/uL Red Blood Count 3.76 M/uL Hemoglobin 12.0 g/dL Hematocrit 37.8 % Mean Corpuscular Volume 100.5 fL Mean Corpuscular Hemoglobin 31.9 pg Mean Corpuscular Hemoglobin Concent 31.7 g/dl RDW Standard Deviation 51.2 fL RDW Coefficient of Variation 13.8 % Platelet Count 413 K/uL Mean Platelet Volume 8.7 fL Nucleated RBC Absolute Count (auto) 0.04 K/uL Nucleated Red Blood Cells % 0.4 % Sodium Level 143 mmol/L Potassium Level 4.0 mmol/L Chloride Level 103 mmol/L Carbon Dioxide Level 35 mmol/L Anion Gap 5.0 mmol/L Blood Urea Nitrogen 12 mg/dl Creatinine 0.30 mg/dl Est Creatinine Clear Calc Drug Dose 132.5 ml/min Estimated GFR () > 150.0 Estimated GFR (Non- 134.5 BUN/Creatinine Ratio 40.8 Random Glucose 178 mg/dl Calcium Level 7.1 mg/dl Phosphorus Level 1.8 mg/dl Total Bilirubin 0.2 mg/dl Aspartate Amino Transf (AST/SGOT) 140 U/L Alanine Aminotransferase (ALT/SGPT) 69 U/L Alkaline Phosphatase 107 U/L Troponin I 9.560 ng/ml Total Protein 6.0 gm/dl Albumin 2.4 gm/dl Globulin 3.6 gm/dl Albumin/Globulin Ratio 0.7 Digoxin Level 0.7 ng/ml Vancomycin Level Trough 3.7 mcg/ml Bedside Hemoglobin 11.2 g/dl Bedside Hematocrit 33 % Bedside Blood Gas pH (LAB) 7.33 Bedside Blood Gas pCO2 (LAB) 65 mmHg Bedside Blood Gas pO2 (LAB) 72 mmHg Bedside Blood Gas HCO3 (LAB) 35 meq/L Bedside Blood Gas Total CO2 37 mEq/l Bedside Blood Gas Base Excess (LAB) 9.0 meq/L Bedside Blood Gas O2 Saturation 92.0 % Bedside Sodium 140 mEq/L Bedside Potassium 3.6 mEq/L Test 10/10/16 09:06 10/10/16 12:06 10/10/16 12:48 Activated Partial Thromboplast Time 83.3 SECONDS Partial Thromboplastin Ratio 3.2 Magnesium Level 2.4 mg/dl Bedside Glucose 176 mg/dl Assessment & Plan Acute hypercapnic respiratory acidosis/Sepsis -Secondary to COPD exacerbation and multilobar pneumonia VS influenza -Sedated with versed on vent support -On broad spectrum IV antibiotics with Zosyn, vanco and Doxy - Continue IV steroid -theophylline and Terbutaline discontinued -Blood cx and sputum cx no growth -received Bicarb, PH 7.33 today - Monitor ABG and electrolytes - Starting on Daily spontaneous awakening trials -Continue monitor in the ICU -Continue IVF ELEVATED TROPONIN - Possible related to sepsis and respiratory acidosis that lead to cardiac ischemia - Mostly stress induce cardiomyopathy - EKG did not show any ST depression - Troponin on admission 8, then increase to 11 ----> 12 -->9 (today) - Started on heparin drip by Cardio - Continue Aspirin. Low dose of BB was started - Echo showed * The study was performed on and urgent basis in the ICU, Bed 108 due to ventilator dependent respiratory failure, and elevted troponin I. * Sinus tachycardia at 125 bpm was present during the echocardiogram study. * There is diffuse left ventricular hypokinesis to akinesis at the mid and apical levels with comparative sparing of the basal segments. * Left ventricular systolic function is severely reduced. * The qualitative left ventricular Ejection Fraction = 20-25%. * The right ventricle is normal in size and function. * There is mild tricuspid regurgitation. * The calculated pulmonary artery systolic pressure is normal, 35 mm Hg. * There is no evidence of atrial septal defect, but resolution does not allow assessment for a patent foramen ovale. SINUS TACHYCARDIA Possible related to sepsis Diltiazem was started and D/C due to the inotropic effect low dose Beta vivi was started Received an additional dose of digoxin. digoxin level is low might possible due to PE, she is already on heparin drip Venous doppler u/s negative for DVT Continue monitor Pt ELECTROLYTES IMBALANCE Phosphate replaced continue monitor electrolytes INFLUENZA A Continue oseltamivir for 5 days. HTN - Diltiazem was discontinue -BP stable GI px PPI DVT PROPHYLAXIS - On heparin drip Code Status FULL CODE Consultants: Cardio Paraprofessional Aide Teacher Current Inpatient Medications: Current Inpatient Medications Medications (Trade) Dose Ordered Sig/Rajan Route Start Time Stop Time Status Last Admin Dose Admin Midazolam HCl (Midazolam 125MG/ 250ML D5w) 250 ml @ 0 mls/hr Q0M PRN IV 1/19/17 12:00 11/07/16 11:59 10/09/16 21:42 5 MLS/HR Vancomycin HCl 1 ea 1 ea UD N/A 10/08/16 14:45 11/07/16 14:44 Doxycycline Hyclate 100 mg/ Dextrose 110 ml @ 50 mls/hr Q12H IV 10/09/16 04:00 10/16/16 03:59 10/10/16 04:26 50 MLS/HR Pantoprazole Sodium 40 mg/ Syringe 10 ml @ 5 mls/min DAILY@11 IV 10/09/16 11:00 11/08/16 10:59 10/10/16 08:10 5 MLS/MIN Piperacillin Sod/ Tazobactam Sod/ Dextrose (Zosyn Iv/D5 100ml) 115 ml @ 28.75 mls/ hr Q8H IV 10/08/16 22:00 10/15/16 21:59 10/10/16 13:09 28.75 MLS/HR Piperacillin Sod/ Tazobactam Sod (Consult) 1 ea N/A 10/08/16 15:00 11/07/16 14:59 Oseltamivir Phosphate (Tamiflu Susp) 150 mg BID PO 10/08/16 21:00 10/13/16 20:59 10/10/16 08:10 150 MG Fentanyl Citrate (Fentanyl Inj) 50 mcg Q2H PRN IV 10/09/16 08:30 10/23/16 08:29 10/10/16 14:06 50 MCG Levalbuterol (Xopenex Hfa Inhaler) 4 puffs Q4R INH 10/09/16 12:00 11/08/16 11:59 10/10/16 11:40 4 PUFFS Aspirin 81 mg 81 mg DAILY PEG 10/10/16 09:00 11/09/16 08:59 10/10/16 08:11 81 MG Heparin Sodium/ Dextrose (Heparin 25,000 Unit/500ml D5W) 500 ml @ 10 mls/hr Q24H PRN IV 10/09/16 09:45 11/08/16 09:44 10/09/16 09:55 13 MLS/HR Brimonidine Tartrate (Alphagan-P 0.15% Oph Soln) 1 drops BID OPL 10/09/16 11:00 11/08/16 10:59 10/10/16 08:11 1 DROPS Dorzolamide/ Timolol (Cosopt Op Soln) 1 drops BID OPB 10/09/16 11:00 11/08/16 10:59 10/10/16 08:11 1 DROPS Prednisolone Acetate (Pred Forte 1% Oph Susp) 1 drops BID OPB 10/09/16 11:00 11/08/16 10:59 10/10/16 08:11 1 DROPS Enteral Nutritional Formula (Impact 1.0 Jaime) 1,000 ml UD OG 10/09/16 11:15 11/08/16 11:14 10/09/16 12:38 1,000 ML Potassium/ Phosphorus/Sodium (Phospha 250 Neutral 155-852-130 Mg) 1 tab QID PO 10/09/16 21:00 11/08/16 20:59 10/10/16 13:09 1 TAB Metoprolol Tartrate 5 mg 5 mg Q4 IV. 10/10/16 12:00 11/09/16 11:59 10/10/16 12:28 5 MG Methylprednisolone Sodium Succinate 40 mg/Syringe 0.64 ml @ 1.5 mls/min DAILY IV 10/11/16 09:00 11/10/16 08:59 Vancomycin HCl 1000 mg/Sodium Chloride 270 ml @ 125 mls/hr TODAY@1400 ONCE IV 10/10/16 14:00 10/10/16 16:09 10/10/16 14:06 125 MLS/HR Vancomycin HCl/ Sodium Chloride (Vancomycin Inj/ Nss 250ml) 262 ml @ 125 mls/hr Q8H IV 10/10/16 21:00 10/17/16 20:59
[2016-10-10 18:24] LABS: PARTIAL THROMBOPLASTIN RATIO 3.6
[2016-10-10 18:25] LABS: BLOOD UREA NITROGEN 14 mg/dl (7-18); BUN/CREATININE RATIO 47.9 (10-20); CALCIUM 7.2 mg/dl (8.5-10.1); CARBON DIOXIDE 36 mmol/L (21-32); CHLORIDE 103 mmol/L (98-107); CREATININE 0.29 mg/dl (0.60-1.20); GLUCOSE 216 mg/dl (70-99); POTASSIUM 4.5 mmol/L (3.5-5.1); SODIUM 143 mmol/L (136-145)
[2016-10-10 18:33] LABS: PHOSPHORUS 2.5 mg/dl (2.5-4.9)
[2016-10-10] MEDS ORDERED: ACETAMINOPHEN IV 650 MG in EMPTY BAG 0 ML IV PRN (20:00)
[2016-10-10 20:33] LABS: ISTAT ARTERIAL BLOOD GAS HCO3 38 meq/L (19-24); ISTAT ARTERIAL BLOOD GAS PCO2 89 mmHg (35-46); ISTAT ARTERIAL BLOOD GAS PO2 128 mmHg (80-95); ISTAT ARTERIAL BLOOD GAS pH 7.24 (7.35-7.45); ISTAT CARBON DIOXIDE > 40 mEq/l (24-31); ISTAT DELIVERY SYSTEM Ventilator; ISTAT FIO2 40 %; ISTAT PEEP 5; ISTAT RATE 20; ISTAT SITE Art Line; VE 9.1; Vt 300
[2016-10-10] MEDS: VANCOMYCIN INJ 600 MG in SODIUM CHLORIDE 0.9% 250ML 250 ML IV SCH (21:08)
[2016-10-11] VITALS (40 sets, daily range): BP systolic 93–148; BP diastolic 44–95; PULSE 109–136; TEMP 36.7–38.1; O2SAT 94–99
[2016-10-11] MEDS: LEValbuterol HFA 15GM INHALER INH SCH ×7 (00:04→23:08)
[2016-10-11 00:14] LABS: ISTAT ARTERIAL BLOOD GAS HCO3 42 meq/L (19-24); ISTAT ARTERIAL BLOOD GAS PCO2 96 mmHg (35-46); ISTAT ARTERIAL BLOOD GAS PO2 126 mmHg (80-95); ISTAT ARTERIAL BLOOD GAS pH 7.25 (7.35-7.45); ISTAT CARBON DIOXIDE > 40 mEq/l (24-31); ISTAT DELIVERY SYSTEM Ventilator; ISTAT FIO2 40 %; ISTAT PEEP 5; ISTAT RATE 20; ISTAT SITE Art Line; VE 7.8; Vt 300
[2016-10-11] MEDS: METOPROLOL TARTRATE 1 MG/ML VIAL IV. SCH ×3 (00:45→07:59)
[2016-10-11 01:19] LABS: PARTIAL THROMBOPLASTIN RATIO 3.1
[2016-10-11] MEDS: PIPERACILL/TAZOBAC IV 3.375 GM in DEXTROSE 5% 100ML IV SCH ×2 (04:05→06:39)
[2016-10-11] MEDS: IMPACT LIQ 1000 ML BAG OG SCH ×2 (04:07→18:19)
[2016-10-11] MEDS: DOXYCYCLINE IV 100 MG in DEXTROSE 5% 100ML 100 ML IV SCH ×2 (04:10→15:40)
[2016-10-11 04:17] LABS: ISTAT ARTERIAL BLOOD GAS HCO3 41 meq/L (19-24); ISTAT ARTERIAL BLOOD GAS PCO2 83 mmHg (35-46); ISTAT ARTERIAL BLOOD GAS PO2 116 mmHg (80-95); ISTAT ARTERIAL BLOOD GAS pH 7.31 (7.35-7.45); ISTAT CARBON DIOXIDE > 40 mEq/l (24-31); ISTAT DELIVERY SYSTEM Ventilator; ISTAT FIO2 40 %; ISTAT PEEP 5; ISTAT RATE 20; ISTAT SITE Art Line; VE 9.1; Vt 300
[2016-10-11] MEDS: VANCOMYCIN INJ 600 MG in SODIUM CHLORIDE 0.9% 250ML 250 ML IV SCH ×3 (05:57→22:31)
[2016-10-11 06:36] LABS: ALT/SGPT 66 U/L (12-78); AST/SGOT 96 U/L (15-37); BLOOD UREA NITROGEN 18 mg/dl (7-18); BUN/CREATININE RATIO 60.9 (10-20); CALCIUM 7.4 mg/dl (8.5-10.1); CARBON DIOXIDE 40 mmol/L (21-32); CHLORIDE 104 mmol/L (98-107); GLUCOSE 162 mg/dl (70-99); POTASSIUM 3.9 mmol/L (3.5-5.1); SODIUM 146 mmol/L (136-145)
[2016-10-11 06:39] LABS: ALB/GLOB RATIO 0.7 (0.9-2); ALKALINE PHOSPHATASE 96 U/L (45-117)
--- NOTE | 2016-10-11 07:16 | DIAGNOSTIC IMAGING REPORT ---
CHEST ONE VIEW PORTABLE CLINICAL HISTORY: Respiratory failure COMPARISON STUDY: 10/10/2016 FINDINGS: The cardiac and mediastinal contours remain stable. There is a nasogastric tube which passes into the stomach. There is an endotracheal tube 2 cm above the elidia. There is emphysema and interstitial thickening similar to the prior study. There is persistent blunting of the lateral costophrenic angles. There is stable left midlung zone interstitial opacities. There is focal pleural thickening within the left midlung zone. IMPRESSION: 1. Satisfactory positioning of the nasogastric tube and endotracheal tube 2. Emphysema with chronic pleural and interstitial left lung opacities 3. Trace pleural effusions 4. Resolving pulmonary vascular congestion Electronically signed by: Angelito Kwong M.D. 10/11/2016 7:14 AM Dictated Date/Time: 10/11/2016 7:12 AM
[2016-10-11] MEDS: PANTOprazole INJ 40 MG in SYRINGE 0 ML IV SCH (07:58)
[2016-10-11] MEDS: METHYLPREDNISOLONE IV 40 MG in SYRINGE 0 ML IV SCH (07:58)
[2016-10-11] MEDS: DORZOLAMIDE/TIMOLOL 22.3/6.8MG/ML 10 ML BTL OPB SCH ×2 (07:59→20:31)
[2016-10-11] MEDS: BRIMONIDINE TARTRATE-P 0.15% 5 ML BTL OPL SCH ×2 (07:59→20:31)
[2016-10-11] MEDS: PrednisoLONE ACET 1% OP SUSP 5 ML BTL OPB SCH ×2 (07:59→20:31)
[2016-10-11] MEDS: ASPIRIN 81 MG CHEW PEG SCH (08:00)
[2016-10-11] MEDS: POT PHOSPHATE MONOBASIC W/ SOD TAB PO SCH ×4 (08:00→20:31)
[2016-10-11 08:01] LABS: MAGNESIUM 2.3 mg/dl (1.8-2.4); PHOSPHORUS 1.5 mg/dl (2.5-4.9)
[2016-10-11] MEDS: OSELTAMIVIR PHOSPHATE 6 MG/ML SUSP PO SCH ×2 (08:02→20:32)
[2016-10-11] MEDS ORDERED: POTASSIUM PHOS 3 MMOL/1 ML INFUSION IV STA (08:09)
[2016-10-11] MEDS ORDERED: OPTIRAY 320 IV PRN (08:30)
[2016-10-11] MEDS ORDERED: POTASSIUM PHOS 3 MMOL/1 ML INFUSION IV ONE (08:30)
[2016-10-11 08:40] LABS: PARTIAL THROMBOPLASTIN RATIO 2.6
--- NOTE | 2016-10-11 08:57 | SURGICAL CONSULTATION ---
DATE OF CONSULTATION: 10/11/2016 CONSULT FOR: Rectal prolapse. HISTORY OF PRESENT ILLNESS: This is a 51-year-old female with a history of being admitted through the Emergency Room in respiratory distress requiring intubation, suspected from infectious process, either influenza or bacterial pneumonia. She does have a history of MS and a gradual decline with cachexia. She has been noted recently with some rectal prolapse. She has also undergone echocardiography showing ejection fraction of 20% with suspected cardiomyopathy. Currently, she is on the ventilator. Her other history does include history of smoking, COPD, hypertension, pulmonary nodules, multiple sclerosis, cachexia. ALLERGIES: She has no known allergies. OTHER FAMILY AND SOCIAL HISTORY: Noncontributory. REVIEW OF SYSTEMS: Ten other review of systems performed and negative. PHYSICAL EXAMINATION: GENERAL: She currently is on the ventilator, supine, in the intensive care unit, sedated. Appears to be comfortable on the ventilator, in no distress. HEART: Shows tachycardia. ABDOMEN: Soft. On examination of the anal area, She does have prolapse circumferentially of the rectal mucosa, which on a reduction, shows very little sphincter tone. EXTREMITIES: She does not have any significant edema in her legs. No rashes. Again, is completely sedated. ASSESSMENT AND PLAN: A 51-year-old female currently on ventilator with severe respiratory failure. Apparently, she has had gradual decline with history of multiple sclerosis and cachexia, severe chronic obstructive pulmonary disease. I suspect her prolapses is more of a chronic problem and relatively well controlled when the patient is conscious in her normal active state. At the present time, the only thing we really can do is try to ovoid drying out of the mucosa, and can try to apply Vaseline gauze and a dry gauze covering as needed to avoid drying tissue. We will follow as the patient is in the hospital.
[2016-10-11] MEDS ORDERED: POTASSIUM PHOSPHATE INJ 40 MMOL in SODIUM CHLORIDE 0.9% 1000ML 1,000 ML IV SCH (09:00)
[2016-10-11] MEDS ORDERED: METOPROLOL TARTRATE 25 MG TAB PO SCH (09:00)
--- NOTE | 2016-10-11 09:05 | DIAGNOSTIC IMAGING REPORT ---
CT HEAD WITHOUT CONTRAST (CT) CLINICAL HISTORY: Unequal pupils. Patient on heparin. Possible acute hemorrhage. COMPARISON STUDY: No previous studies for comparison. TECHNIQUE: Axial CT of the brain is performed from the vertex to the skull base. IV contrast was not administered for this examination. CT DOSE: FINDINGS: No intra or extra-axial mass lesions are visualized. There is no CT evidence of acute cortical infarction. There is no evidence of midline shift. There is no acute hemorrhage. No calvarial fractures are visualized. There are patchy white matter hypodensities likely on a small vessel basis. There is no evidence of pathologic ventricular dilatation. There is opacification of the left maxillary sinus. Several left-sided ethmoid air cells are opacified. IMPRESSION: 1. Inflammatory changes within the left maxillary and ethmoid sinuses 2. No acute intracranial findings. No evidence of acute intracranial hemorrhage Electronically signed by: Angelito Kwong M.D. 10/11/2016 9:04 AM Dictated Date/Time: 10/11/2016 9:01 AM
--- NOTE | 2016-10-11 09:16 | DIAGNOSTIC IMAGING REPORT ---
CT ANGIOGRAM OF THE CHEST CLINICAL HISTORY: Hypoxia, COPD. Suspected pulmonary embolism. COMPARISON STUDY: 07/04/2015 , chest x-ray dated 10/11/2016 TECHNIQUE: Following the IV administration of 81 mL of Optiray-320, CT angiogram of the thorax was performed from the thoracic inlet to the lung bases utilizing the pulmonary embolus protocol. Images are reviewed in the axial, sagittal, and coronal planes. IV contrast was administered without complication. MIP imaging was performed. CT DOSE: 809.09 mGy.cm FINDINGS: There is trace perihepatic fluid. There is diffuse subcutaneous edema suggesting anasarca. There is an indwelling nasogastric tube. There is an indwelling endotracheal tube. There is a nonobstructing 4 mm left renal calculus. It is trace perihepatic fluid. No pathologically enlarged axillary mediastinal or hilar lymph nodes were visualized. There was no evidence of thoracic aortic dilatation. There were no pulmonary artery filling defects to indicate acute pulmonary embolism. There are small bilateral pleural effusions. There is severe pulmonary emphysema. There are areas of bronchial wall thickening and mucous plugging. There is a stable 3 cm left upper lobe opacity with areas of traction bronchiectasis. There are stable bilateral lower lobe parenchymal opacities, likely representing areas of scarring. There are subtle groundglass attenuation within the right middle lobe, also stable. There is no acute parenchymal consolidation., There are old T10 and T11 vertebral body compression deformities. There are multiple right-sided chest wall collaterals, and there is opacification of epidural and paravertebral veins. IMPRESSION: 1. No CT evidence of acute pulmonary embolism 2. Moderately severe emphysema with stable bilateral parenchymal opacities, likely representing areas of scarring/chronic inflammation 3. Small bilateral pleural effusions 4. Trace perihepatic fluid 5. Nonobstructing left renal calculus 6. Anasarca 7. Areas of bronchial wall thickening and mucous plugging. Electronically signed by: Angelito Kwong M.D. 10/11/2016 9:14 AM Dictated Date/Time: 10/11/2016 9:05 AM
--- NOTE | 2016-10-11 09:18 | Critical Care Progress Note ---
Critical Care Progress Note Date of Service Oct 11, 2016. ICU Day ICU Day Number: [address] Mcfarland Subjective Intubated sedated. Objective Vital Signs - as noted Laboratory Data - as noted Physical Exam: General - Sedated, intubated RASS -4 Eyes - equal pupils, unresponsive to light,hazy left eye, No icterus, gaze conjugate ENT - ET Tube in place at 23cm with OG tube Neck - Supple, trachea midline, no masses or lymphadenopathy, no JVD or bruits Lungs - No paradoxical chest wall movement,Right: coarse with rhonchi throughout , Left: Rhonchi to upper long and wheezing mid and lower, distant breath sounds at base Heart - Sinus Tach 120-130's, No murmur, rubs, clicks, or gallops appreciated Abdomen - No BS noted, no bruits noted, tympanic to percussion, nontender, Moderately distended, no organomegaly Extremities - No edema, pedal pulses intact Neuro - A&OX0 Strength: Could not be assessed Reflexes: +1 Patellar reflex Bilaterally; Upgoing toes to plantar stimulation, Areflexive to Bicep and brachioradialis CN:equal pupils, unresponsive to light, no facial asymmetry Rectal: Easily reducible rectal prolapse Assessment & Plan (1) Acute hypercapnic respiratory failure Likely multifactorial; infectious process on chest x-ray (pneumonia), influenza A positive, and COPD exacerbation CXR 10/09/16: Near complete resolution of pulmonary edema pattern, prominent bilateral hilar and bilateral midlung zone densities persist, trace left pleural effusion. Sedation: * Will begin daily spontaneous awakening trials * Decrease sedation, May need to increase narcotic for pain-related tachycardia Intubated 7.5 ET Tube, 23cm at the lip Change event to pressure regulated volume control, tidal volume 300, FiO2 decreasing per protocol started 40%. Further Respiratory Regimen management per Dr. Mcfarland * Xopenex 4puffs QID * Terbutaline stopped * Theophylline stopped * Therapeutic magnesium stopped Can not currently rule out Pleural Embolism. Pt is not stable for transport at this time to CT. * Pt being treated with Heparin Infusion for possible stress induced NSTEMI * Bilateral lower extremity Dopplers negative * Solu-Medrol converted to 40 daily starting tomorrow morning Chlorhexadine Mouth Care in place HOB at 30* Needs daily spontaneous breathing trial Follow-up to chain CT scan chest to further classify extent of lung disease and definitively rule out PE (2) Respiratory acidosis Received in ED: * 2Amps HCO3 * Negra dosed at 9ml/kg Received 2 additional Amps of HCO3 in ICU on evening of 10/08 AGBs q4 or with changes Daily spontaneous breathing trials (3) Pneumonia Cultures remain negative, influenza A positive, at this point is difficult for me to tell if there was a secondary bacterial infection. Given the significantly decreased lung reserve I am inclined to continue to treat her for a full 7 day course with the antibiotics Continue Broad Spectrum Abx: Day 4 * Doxycycline 100 mg IV every 12 hours * Vancomycin 550 mg IV every 10 * Zosyn 3.375 g IV every 8 hours Obtain a chest CT today (4) COPD exacerbation As noted in Resp Failure (5) Elevated troponin Dr. Cannon consulted: likely due to hypoxemia from acute illness Repeat EKG demonstrates improvement in ST depression in lateral leads Troponin trending up: 8.2 --> 11.1 --> 11.4 --> 12.2--> 9.5 Continue to trend troponin per Cardiology Start ASA chewable 81mg via OG Tube Heparin Infusion started by cardiology Monitor on telemetry Metoprolol adequately decreasing heart rate however short effect, will start oral beta vivi, 12.5 mg metoprolol twice a day There may be a component of narcotic withdrawal that is driving the tachycardia as well. We will add antral narcotic this patient is on this at baseline oxycodone solution 5 mg every 6 hours. (6) Cardiomyopathy Dr. Krishnamurthy consulted. ECHO 10/08: Severe LV systolic dysfunction, LV ejection fraction 20-25% compared to normal EF in June [address] Krishnamurthy Avoiding Dobutamine for risk of V. Tach (7) Prolonged Q-T interval on ECG Dr. Krishnamurthy consulted: likely due to hypoxemia from acute illness D/C'd Levaquin Avoid QTc Prolonging Medications Improved on EKG dated October 10 (8) Multiple sclerosis Follows with Dr. Fernandes Pain Management as out-pt; consider consult as pt improves D/C'd Mg drip due to inability to follow toxicity with reflexes. Minimal reflexes noted due to neuromuscular dz of MS. Other Neuro: Reflexes noted as +1 on lower extremities today; still areflexive to upper extremities; likely due to multiple sclerosis Neuro checks per protocol Monitor clinically Consider adding anabolic steroids for COPD and multiple sclerosis in attempts to increase chance for liberation from ventilator (9) Rectal mucosa prolapse Vaseline gauze to the area to prevent desiccation (10) Protein calorie malnutrition Consider anabolics Refeeding syndrome, aggressive phosphate supplementation (11) Hypophosphatemia (12) Decubitus ulcer of back Wound care consult Aggressive nutritional support Neuro: Added oxycodone, patient on chronic opiates Insure daily awakening trials combined with spontaneous breathing trials RASS -4, oversedated goal RASS -2 Cardiovascular Added oral metoprolol 12.5 mg twice a day Respiratory Day for a mechanical ventilation, severe COPD at risk for tracheostomy Obtain CT chest today Daily spontaneous breathing trials Consider anabolic steroids in setting of severe COPD and neuromuscular disease: Multiple sclerosis Abdomen: Tube feeds running at goal Protein calorie malnutrition, will check pre-albumin tomorrow Consider anabolic's Multivitamins added along with zinc and vitamin C Renal: Globally 3 L up, limit extraneous fluids convert what we can from IV to oral. Routinely hypophosphatemic likely secondary to refeeding syndrome aggressive phosphate supplementation Will not diuresis today as patient will receive contrast, consider diuresis tomorrow. Hematology: Consistently running high on heparin infusion, we will check 10 A level Infectious disease: Febrile overnight White count remains stable, on broad-spectrum antibiotics Invasive line sites appear okay, no purulence Profound a vancomycin trough at 3.7 suspect patient has very high clearance rates Reviewed pharmacy dosing adjustment, given recent febrile episode will increase Zosyn dose If spikes again would consider panculture and bronchoscopy. Patient could be at risk for drug-resistant pseudomonas, always have to consider catheter- related infection in addition late to ventilator associated event, however there is no change in her sputum and no increase in secretions or oxygen requirement. Endocrine: On 40 mg of Solu-Medrol today Blood sugars slowly creeping up, this is to be expected as nutritional support increases and given steroid use. Glycemic control service following In discussion with pharmacy we do not have oxandrolone or nandrolone, he only anabolic steroid we have is injectable testosterone. Patient may benefit from anabolic's given neuromuscular disease, COPD, high dose steroids to limit protein wasting from cortisol response. However given the virilizing effects of testosterone I will hold. Patient remains critically ill due to acute respiratory failure, influenza a pneumonia. I have personally spent 55 minutes of critical care time in the direct management of this patient. This is a life/limb threatening event. This includes time spent evaluating patient, direct bedside care, chart review, placing orders, interpretation of diagnostic studies, discussion with consultants, patient, and family members, as well as other required patient management activities. This time is exclusive of all separately billable procedures, and teaching time and separate from and in addition to any other critical care service time. Consults & Procedures Consultants: Cardiology: Dr. Krishnamurthy Pharmacy Procedures: R. Fem Central Line 10/08 R Fem Art Line 10/08 Data Medications: Current Inpatient Medications Medications (Trade) Dose Ordered Sig/Rajan Route Start Time Stop Time Status Last Admin Dose Admin Midazolam HCl (Midazolam 125MG/ 250ML D5w) 250 ml @ 0 mls/hr Q0M PRN IV 10/08/16 12:00 11/07/16 11:59 10/09/16 21:42 5 MLS/HR Vancomycin HCl 1 ea 1 ea UD N/A 10/08/16 14:45 11/07/16 14:44 Doxycycline Hyclate 100 mg/ Dextrose 110 ml @ 50 mls/hr Q12H IV 10/09/16 04:00 10/16/16 03:59 10/11/16 04:10 50 MLS/HR Pantoprazole Sodium 40 mg/ Syringe 10 ml @ 5 mls/min DAILY@11 IV 10/09/16 11:00 11/08/16 10:59 10/10/16 08:10 5 MLS/MIN Piperacillin Sod/ Tazobactam Sod/ Dextrose (Zosyn Iv/D5 100ml) 115 ml @ 28.75 mls/ hr Q8H IV 10/08/16 22:00 10/15/16 21:59 10/11/16 06:39 28.75 MLS/HR Piperacillin Sod/ Tazobactam Sod (Consult) 1 ea UD N/A 10/08/16 15:00 11/07/16 14:59 Oseltamivir Phosphate (Tamiflu Susp) 150 mg BID PO 10/08/16 21:00 10/13/16 20:59 10/10/16 21:09 150 MG Fentanyl Citrate (Fentanyl Inj) 50 mcg Q2H PRN IV 10/09/16 08:30 10/23/16 08:29 10/10/16 17:25 50 MCG Levalbuterol (Xopenex Hfa Inhaler) 4 puffs Q4R INH 10/09/16 12:00 11/08/16 11:59 10/11/16 07:39 4 PUFFS Aspirin 81 mg 81 mg DAILY PEG 10/10/16 09:00 11/09/16 08:59 10/10/16 08:11 81 MG Heparin Sodium/ Dextrose (Heparin 25,000 Unit/500ml D5W) 500 ml @ 8 mls/hr Q24H PRN IV 10/09/16 09:45 11/08/16 09:44 10/09/16 09:55 13 MLS/HR Brimonidine Tartrate (Alphagan-P 0.15% Oph Soln) 1 drops BID OPL 10/09/16 11:00 11/08/16 10:59 10/10/16 21:09 1 DROPS Dorzolamide/ Timolol (Cosopt Op Soln) 1 drops BID OPB 10/09/16 11:00 11/08/16 10:59 10/10/16 21:08 1 DROPS Prednisolone Acetate (Pred Forte 1% Oph Susp) 1 drops BID OPB 10/09/16 11:00 11/08/16 10:59 10/10/16 21:08 1 DROPS Enteral Nutritional Formula (Impact 1.0 Jaime) 1,000 ml UD OG 10/09/16 11:15 11/08/16 11:14 10/11/16 04:07 1,000 ML Potassium/ Phosphorus/Sodium (Phospha 250 Neutral 155-852-130 Mg) 1 tab QID PO 10/09/16 21:00 11/08/16 20:59 10/10/16 21:08 1 TAB Metoprolol Tartrate 5 mg 5 mg Q4 IV. 10/10/16 12:00 11/09/16 11:59 10/11/16 04:10 5 MG Methylprednisolone Sodium Succinate 40 mg/Syringe 0.64 ml @ 1.5 mls/min DAILY IV 10/11/16 09:00 11/10/16 08:59 Vancomycin HCl 600 mg/Sodium Chloride 262 ml @ 125 mls/hr Q8H IV 10/10/16 21:00 10/17/16 20:59 10/11/16 05:57 125 MLS/HR Acetaminophen/ Empty Bag (Ofirmev IV/ Empty Iv Bag 100ml) 65 ml @ 260 mls/hr Q6H PRN IV 10/10/16 20:00 11/09/16 19:59 10/10/16 20:36 260 MLS/HR I & O: 24-Hour Column 10/11/16 08:00 Intake Total 2899 ml Output Total 1650 ml Balance 1249 ml Vital Signs: Date Time Temp Pulse Resp B/P Pulse Ox O2 Delivery O2 Flow Rate FiO2 10/11/16 07:39 40 10/11/16 06:00 124 33 132/70 98 Mechanical Ventilator 40 10/11/16 05:58 120 31 100/69 98 Mechanical Ventilator 40 10/11/16 05:35 40 10/11/16 05:28 121 30 105/72 98 Mechanical Ventilator 40 10/11/16 05:00 119 31 146/84 98 Mechanical Ventilator 40 10/11/16 04:58 120 30 111/74 98 Mechanical Ventilator 40 10/11/16 04:28 118 31 112/74 98 Mechanical Ventilator 40 10/11/16 04:20 Mechanical Ventilator 40 10/11/16 04:20 40 10/11/16 04:10 130 10/11/16 04:00 37.0 129 32 129/67 98 Mechanical Ventilator 40 10/11/16 03:58 129 31 115/77 98 Mechanical Ventilator 40 10/11/16 03:30 40 10/11/16 03:28 126 31 108/72 98 Mechanical Ventilator 40 10/11/16 03:00 123 31 121/63 98 Mechanical Ventilator 40 10/11/16 02:58 123 29 105/69 98 Mechanical Ventilator 40 10/11/16 02:28 121 28 107/70 98 Mechanical Ventilator 40 10/11/16 02:00 37.4 118 29 116/61 98 Mechanical Ventilator 40 10/11/16 01:58 118 28 103/65 98 Mechanical Ventilator 40 10/11/16 01:28 111 27 97/62 98 Mechanical Ventilator 40 10/11/16 01:00 110 28 112/60 98 Mechanical Ventilator 40 10/11/16 00:58 109 26 95/61 98 Mechanical Ventilator 40 10/11/16 00:45 120 10/11/16 00:28 121 28 99/71 99 Mechanical Ventilator 40 10/11/16 00:10 40 10/11/16 00:10 Mechanical Ventilator 40 10/11/16 00:04 40 10/11/16 00:00 38.0 122 28 113/71 98 Mechanical Ventilator 40 10/10/16 23:58 122 28 105/69 98 Mechanical Ventilator 40 10/10/16 23:28 124 30 104/68 98 Mechanical Ventilator 40 10/10/16 23:00 118 26 98/60 97 Mechanical Ventilator 40 10/10/16 22:58 118 26 92/58 97 Mechanical Ventilator 40 10/10/16 22:41 40 10/10/16 22:28 118 25 94/60 97 Mechanical Ventilator 40 10/10/16 22:00 38.8 120 21 104/62 96 Mechanical Ventilator 40 10/10/16 21:58 121 21 96/65 96 Mechanical Ventilator 40 10/10/16 21:28 131 26 116/79 98 Mechanical Ventilator 40 10/10/16 21:00 122 30 117/70 98 Mechanical Ventilator 40 10/10/16 20:36 138 10/10/16 20:05 Mechanical Ventilator 40 10/10/16 20:05 40 10/10/16 20:00 136 31 123/77 99 Mechanical Ventilator 40 10/10/16 20:00 40 10/10/16 19:58 39.1 140 31 113/79 100 Mechanical Ventilator 40 10/10/16 19:28 136 31 111/80 99 Mechanical Ventilator 40 10/10/16 19:00 131 28 131/79 98 Mechanical Ventilator 40 10/10/16 18:27 132 28 132/81 98 Mechanical Ventilator 40 10/10/16 17:02 40 10/10/16 16:00 40 10/10/16 16:00 37.3 129 28 136/84 98 Mechanical Ventilator 40 10/10/16 16:00 Mechanical Ventilator 40 10/10/16 15:49 139 141/87 10/10/16 14:22 36.9 128 28 122/72 94 Mechanical Ventilator 40 10/10/16 14:21 40 10/10/16 12:30 120 28 129/77 97 Mechanical Ventilator 10/10/16 12:28 136 134/79 10/10/16 12:00 Mechanical Ventilator 40 10/10/16 12:00 40 10/10/16 11:40 40 10/10/16 11:26 40 10/10/16 10:17 117 124/71 10/10/16 10:00 38.2 140 28 131/73 92 Mechanical Ventilator 10/10/16 09:43 40 10/10/16 09:42 140 10/10/16 09:40 50 Laboratory Results: Last 24 Hours Test 10/10/16 08:09 10/10/16 09:06 10/10/16 12:06 10/10/16 12:48 Bedside Hemoglobin 11.2 g/dl Bedside Hematocrit 33 % Bedside Blood Gas pH (LAB) 7.33 Bedside Blood Gas pCO2 (LAB) 65 mmHg Bedside Blood Gas pO2 (LAB) 72 mmHg Bedside Blood Gas HCO3 (LAB) 35 meq/L Bedside Blood Gas Total CO2 37 mEq/l Bedside Blood Gas Base Excess (LAB) 9.0 meq/L Bedside Blood Gas O2 Saturation 92.0 % Bedside Sodium 140 mEq/L Bedside Potassium 3.6 mEq/L Activated Partial Thromboplast Time 83.3 SECONDS Partial Thromboplastin Ratio 3.2 Magnesium Level 2.4 mg/dl Bedside Glucose 176 mg/dl Test 10/10/16 16:46 10/10/16 17:15 10/10/16 20:20 10/11/16 00:00 Bedside Glucose 196 mg/dl Activated Partial Thromboplast Time 93.1 SECONDS Partial Thromboplastin Ratio 3.6 Sodium Level 143 mmol/L Potassium Level 4.5 mmol/L Chloride Level 103 mmol/L Carbon Dioxide Level 36 mmol/L Anion Gap 4.0 mmol/L Blood Urea Nitrogen 14 mg/dl Creatinine 0.29 mg/dl Est Creatinine Clear Calc Drug Dose 140.0 ml/min Estimated GFR () > 150.0 Estimated GFR (Non- 136.0 BUN/Creatinine Ratio 47.9 Random Glucose 216 mg/dl Calcium Level 7.2 mg/dl Phosphorus Level 2.5 mg/dl Magnesium Level 2.0 mg/dl Blood Gas Sample Site Art Line Art Line Bedside Blood Gas pH (LAB) 7.24 7.25 Bedside Blood Gas pCO2 (LAB) 89 mmHg 96 mmHg Bedside Blood Gas pO2 (LAB) 128 mmHg 126 mmHg Bedside Blood Gas HCO3 (LAB) 38 meq/L 42 meq/L Bedside Blood Gas Total CO2 > 40 mEq/l > 40 mEq/l Bedside Blood Gas Base Excess (LAB) 11.0 meq/L 15.0 meq/L Bedside Blood Gas O2 Saturation 97.0 % 98.0 % Jatin Test NA NA Oxygen Delivery Device Ventilator Ventilator Bedside Oxygen Rate (breaths/min) 20 20 Blood Gas Minute Ventilation 9.1 7.8 Bedside FiO2 40 % 40 % Blood Gas Tidal Volume 300 300 Blood Gas PEEP 5 5 Test 10/11/16 00:02 10/11/16 04:03 10/11/16 05:30 Activated Partial Thromboplast Time 80.1 SECONDS Partial Thromboplastin Ratio 3.1 Blood Gas Sample Site Art Line Bedside Blood Gas pH (LAB) 7.31 Bedside Blood Gas pCO2 (LAB) 83 mmHg Bedside Blood Gas pO2 (LAB) 116 mmHg Bedside Blood Gas HCO3 (LAB) 41 meq/L Bedside Blood Gas Total CO2 > 40 mEq/l Bedside Blood Gas Base Excess (LAB) 15.0 meq/L Bedside Blood Gas O2 Saturation 98.0 % Jatin Test NA Oxygen Delivery Device Ventilator Bedside Oxygen Rate (breaths/min) 20 Blood Gas Minute Ventilation 9.1 Bedside FiO2 40 % Blood Gas Tidal Volume 300 Blood Gas PEEP 5 Sodium Level 146 mmol/L Potassium Level 3.9 mmol/L Chloride Level 104 mmol/L Carbon Dioxide Level 40 mmol/L Anion Gap 2.0 mmol/L Blood Urea Nitrogen 18 mg/dl Creatinine 0.30 mg/dl Est Creatinine Clear Calc Drug Dose 135.4 ml/min Estimated GFR () > 150.0 Estimated GFR (Non- 134.5 BUN/Creatinine Ratio 60.9 Random Glucose 162 mg/dl Calcium Level 7.4 mg/dl Phosphorus Level 1.5 mg/dl Magnesium Level 2.3 mg/dl Total Bilirubin 0.2 mg/dl Aspartate Amino Transf (AST/SGOT) 96 U/L Alanine Aminotransferase (ALT/SGPT) 66 U/L Alkaline Phosphatase 96 U/L Total Protein 5.4 gm/dl Albumin 2.2 gm/dl Globulin 3.2 gm/dl Albumin/Globulin Ratio 0.7
--- NOTE | 2016-10-11 09:33 | CARDIOLOGY PROGRESS NOTE ---
DATE: 10/11/2016 The patient seen and examined. Chart, medications, telemetry reviewed. SUBJECTIVE: The patient appears slightly more comfortable this morning, heart rate is variable between 100 and 130, and sinus tachycardia. OBJECTIVE: VITAL SIGNS: Heart rate is 108, blood pressure is 126/70. NECK: Thin. There is minimal jugular venous distention. LUNGS: Reveal coarse airway sounds. CARDIOVASCULAR: Regular. There is no S3 gallop. ABDOMEN: Soft. EXTREMITIES: Without cyanosis or clubbing. There is no peripheral edema. EKG this morning reveals sinus tachycardia, rate of 124, with nonspecific ST segment changes in the lateral leads. 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 RECOMMENDATIONS: The patient will continue requiring increasingly higher doses of beta vivi to titrate for heart rate and catecholamine cardiomyopathy. The patients in this scenario may require doses as high as 100 mg twice per day of metoprolol. I agree with initiation of oral and continue IV therapies. Ultimate goal heart rate below 100. This may ultimately aid in patient's pulmonary status.
[2016-10-11] MEDS: ZINC SULFATE 220 MG CAP PO SCH (09:44)
[2016-10-11] MEDS: ASCORBIC ACID 500 MG TAB PO SCH (09:44)
[2016-10-11] MEDS: MULTIVITAMINS W/MINERALS 15ML UDP PO SCH (10:56)
[2016-10-11] MEDS: LANSOPRAZOLE SOLUTAB 30 MG NG SCH (10:56)
[2016-10-11 12:19] LABS: ISTAT ARTERIAL BLOOD GAS HCO3 39 meq/L (19-24); ISTAT ARTERIAL BLOOD GAS PCO2 96 mmHg (35-46); ISTAT ARTERIAL BLOOD GAS PO2 96 mmHg (80-95); ISTAT ARTERIAL BLOOD GAS pH 7.22 (7.35-7.45); ISTAT CARBON DIOXIDE > 40 mEq/l (24-31); ISTAT DELIVERY SYSTEM Ventilator; ISTAT FIO2 40 %; ISTAT PEEP 10; ISTAT SITE Art Line
[2016-10-11] MEDS ORDERED: METOPROLOL TARTRATE 1 MG/ML VIAL ONE (12:32)
[2016-10-11] MEDS ORDERED: NURSING VERBAL MED ORDER ONE (12:45)
[2016-10-11] MEDS: OXYCODONE HCL SOLN 5 MG/5 ML UDC PO SCH ×2 (12:54→17:38)
[2016-10-11] MEDS: PIPERACILL/TAZOBAC IV 4.5 GM in DEXTROSE 5% 100ML 100 ML IV SCH ×2 (12:55→20:26)
[2016-10-11] MEDS: OXYMETAZOLINE HCL 0.05% NA SPR 15 ML BTL SCH ×2 (13:50→15:41)
[2016-10-11] MEDS ORDERED: METOPROLOL TARTRATE 50 MG TAB PO SCH (14:00)
[2016-10-11] MEDS: METOPROLOL TARTRATE 25 MG TAB PO SCH ×2 (14:35→22:32)
[2016-10-11] MEDS: FENTANYL CITRATE INJ 50 MCG/1 ML 2 ML VIAL IV PRN ×3 (14:35→20:28)
[2016-10-11] MEDS: HEPARIN 25,000 UNIT/500ML D5W 500 ML IV PRN (14:37)
[2016-10-11] MEDS ORDERED: MIDAZOLAM HCL 5 MG/ML 1 ML VIAL IV PRN (15:15)
[2016-10-11] MEDS ORDERED: METOPROLOL TARTRATE 1 MG/ML VIAL IV. SCH (16:00)
--- NOTE | 2016-10-11 17:51 | Progress Note ---
Medicine Progress Note Date & Time of Visit: Oct 11, 2016 at 17:30. Subjective Pt was seen and examined Sedated on ventilator support day #4 Failed weaning trial and Son at bedside Objective Last 8 Hrs Date Time Temp Pulse Resp B/P Pulse Ox O2 Delivery O2 Flow Rate FiO2 10/11/16 17:29 40 10/11/16 16:00 38.1 127 28 135/66 99 Mechanical Ventilator 40 10/11/16 16:00 Mechanical Ventilator 40 10/11/16 16:00 40 10/11/16 15:30 40 10/11/16 14:08 40 10/11/16 14:00 37.6 131 22 134/65 97 Mechanical Ventilator 40 10/11/16 12:42 141 143/69 10/11/16 12:00 116 30 103/44 97 Mechanical Ventilator 40 10/11/16 12:00 Mechanical Ventilator 40 10/11/16 12:00 40 10/11/16 11:32 40 10/11/16 10:09 40 10/11/16 10:00 123 32 141/75 96 Mechanical Ventilator 40 Physical Exam: General- sedated on ventilator support Head- atraumatic Eyes- PERRL ENT- ET tub in good position Neck- supple, no JVD Lungs- Coarse BS Heart- tachycardia Abdomen- Hypoactive bowel sound Extremities-no calf tenderness Neuro- Sedated on versed drip Skin- warm & dry Laboratory Results: Last 24 Hours Test 10/10/16 20:20 10/11/16 00:00 10/11/16 00:02 10/11/16 04:03 Blood Gas Sample Site Art Line Art Line Art Line Bedside Blood Gas pH (LAB) 7.24 7.25 7.31 Bedside Blood Gas pCO2 (LAB) 89 mmHg 96 mmHg 83 mmHg Bedside Blood Gas pO2 (LAB) 128 mmHg 126 mmHg 116 mmHg Bedside Blood Gas HCO3 (LAB) 38 meq/L 42 meq/L 41 meq/L Bedside Blood Gas Total CO2 > 40 mEq/l > 40 mEq/l > 40 mEq/l Bedside Blood Gas Base Excess (LAB) 11.0 meq/L 15.0 meq/L 15.0 meq/L Bedside Blood Gas O2 Saturation 97.0 % 98.0 % 98.0 % Jatin Test NA NA NA Oxygen Delivery Device Ventilator Ventilator Ventilator Bedside Oxygen Rate (breaths/min) 20 20 20 Blood Gas Minute Ventilation 9.1 7.8 9.1 Bedside FiO2 40 % 40 % 40 % Blood Gas Tidal Volume 300 300 300 Blood Gas PEEP 5 5 5 Activated Partial Thromboplast Time 80.1 SECONDS Partial Thromboplastin Ratio 3.1 Test 10/11/16 05:30 10/11/16 08:16 10/11/16 12:07 10/11/16 13:12 Sodium Level 146 mmol/L Potassium Level 3.9 mmol/L Chloride Level 104 mmol/L Carbon Dioxide Level 40 mmol/L Anion Gap 2.0 mmol/L Blood Urea Nitrogen 18 mg/dl Creatinine 0.30 mg/dl Est Creatinine Clear Calc Drug Dose 135.4 ml/min Estimated GFR () > 150.0 Estimated GFR (Non- 134.5 BUN/Creatinine Ratio 60.9 Random Glucose 162 mg/dl Calcium Level 7.4 mg/dl Phosphorus Level 1.5 mg/dl Magnesium Level 2.3 mg/dl Total Bilirubin 0.2 mg/dl Aspartate Amino Transf (AST/SGOT) 96 U/L Alanine Aminotransferase (ALT/SGPT) 66 U/L Alkaline Phosphatase 96 U/L Total Protein 5.4 gm/dl Albumin 2.2 gm/dl Globulin 3.2 gm/dl Albumin/Globulin Ratio 0.7 Activated Partial Thromboplast Time 67.1 SECONDS Partial Thromboplastin Ratio 2.6 Heparin Anti-Xa Act, Low Molec Wt 0.92 IU/ML Blood Gas Sample Site Art Line Bedside Blood Gas pH (LAB) 7.22 Bedside Blood Gas pCO2 (LAB) 96 mmHg Bedside Blood Gas pO2 (LAB) 96 mmHg Bedside Blood Gas HCO3 (LAB) 39 meq/L Bedside Blood Gas Total CO2 > 40 mEq/l Bedside Blood Gas Base Excess (LAB) 11.0 meq/L Bedside Blood Gas O2 Saturation 95.0 % Jatin Test NA Oxygen Delivery Device Ventilator Bedside FiO2 40 % Blood Gas PEEP 10 Bedside Glucose 204 mg/dl Date/Time Source Procedure Growth Status 10/11/16 16:48 Blood Blood Culture Pending Received 10/11/16 16:45 Blood Blood Culture Pending Received Assessment & Plan Acute hypercapnic respiratory acidosis/Sepsis -Secondary to COPD exacerbation and multilobar pneumonia VS influenza -Sedated with versed on vent support -On broad spectrum IV antibiotics with Zosyn, vanco and Doxy - Continue IV steroid -theophylline and Terbutaline discontinued -Blood cx and sputum cx no growth -received Bicarb, PH 7.22 today - Monitor ABG and electrolytes - Continue Daily spontaneous awakening trials -Continue monitor in the ICU -Might consider to start anabolic steroid - Continue on vent support, if unable to wean her off, consider tracheostomy CT chest showed moderately severe emphysema with stable bilateral parenchymal opacities, likely representing areas of scarring/chronic inflammation. Areas of bronchial wall thickening and mucous plugging. ELEVATED TROPONIN - Possible related to sepsis and respiratory acidosis that lead to cardiac ischemia - Mostly stress induce cardiomyopathy - EKG did not show any ST depression - Troponin on admission 8, then increase to 11 ----> 12 -->9 (today) - Started on heparin drip by Cardio - Continue Aspirin. Low dose of BB was started - Echo showed * The study was performed on and urgent basis in the ICU, Bed 108 due to ventilator dependent respiratory failure, and elevted troponin I. * Sinus tachycardia at 125 bpm was present during the echocardiogram study. * There is diffuse left ventricular hypokinesis to akinesis at the mid and apical levels with comparative sparing of the basal segments. * Left ventricular systolic function is severely reduced. * The qualitative left ventricular Ejection Fraction = 20-25%. * The right ventricle is normal in size and function. * There is mild tricuspid regurgitation. * The calculated pulmonary artery systolic pressure is normal, 35 mm Hg. * There is no evidence of atrial septal defect, but resolution does not allow assessment for a patent foramen ovale. SINUS TACHYCARDIA Possible related to sepsis Diltiazem was started and D/C due to the inotropic effect low dose Beta vivi was started Received an additional dose of digoxin. digoxin level is low Venous doppler u/s negative for DVT CTA thorax negative for PE ELECTROLYTES IMBALANCE Possible related to refeeding syndrome Phosphate replaced daily continue monitor electrolytes DECUBITUS ULCER OF BACK Daily wound care Wound care consult INFLUENZA A Continue oseltamivir for 5 days. Rectal mucosa prolapse Avoid drying out of the mucosa Apply Vaseline gauze to the area to prevent desiccation HTN - Diltiazem was discontinue -BP stable GI px PPI DVT PROPHYLAXIS - On heparin drip Code Status FULL CODE Consultants: Cardio Heat Treat Inspector Current Inpatient Medications: Current Inpatient Medications Medications (Trade) Dose Ordered Sig/Rajan Route Start Time Stop Time Status Last Admin Dose Admin Vancomycin HCl 1 ea 1 ea UD N/A 10/08/16 14:45 11/07/16 14:44 Doxycycline Hyclate/Dextrose (Vibramycin IV/ D5 100ml) 110 ml @ 50 mls/hr Q12H IV 10/09/16 04:00 10/16/16 03:59 10/11/16 15:40 50 MLS/HR Piperacillin Sod/ Tazobactam Sod (Consult) 1 ea UD N/A 10/08/16 15:00 11/07/16 14:59 Oseltamivir Phosphate (Tamiflu Susp) 150 mg BID PO 10/08/16 21:00 10/13/16 20:59 10/11/16 08:02 150 MG Fentanyl Citrate (Fentanyl Inj) 50 mcg Q2H PRN IV 10/09/16 08:30 10/23/16 08:29 10/11/16 14:35 50 MCG Levalbuterol (Xopenex Hfa Inhaler) 4 puffs Q4R INH 10/09/16 12:00 11/08/16 11:59 10/11/16 14:08 4 PUFFS Aspirin 81 mg 81 mg DAILY PEG 10/10/16 09:00 11/09/16 08:59 10/11/16 08:00 81 MG Heparin Sodium/ Dextrose (Heparin 25,000 Unit/500ml D5W) 500 ml @ 8 mls/hr Q24H PRN IV 10/09/16 09:45 11/08/16 09:44 10/11/16 14:37 8 MLS/HR Brimonidine Tartrate (Alphagan-P 0.15% Oph Soln) 1 drops BID OPL 10/09/16 11:00 11/08/16 10:59 10/11/16 07:59 1 DROPS Dorzolamide/ Timolol (Cosopt Op Soln) 1 drops BID OPB 10/09/16 11:00 11/08/16 10:59 10/11/16 07:59 1 DROPS Prednisolone Acetate (Pred Forte 1% Oph Susp) 1 drops BID OPB 10/09/16 11:00 11/08/16 10:59 10/11/16 07:59 1 DROPS Enteral Nutritional Formula (Impact 1.0 Jaime) 1,000 ml UD OG 10/09/16 11:15 11/08/16 11:14 10/11/16 04:07 1,000 ML Potassium/ Phosphorus/Sodium 1 tab 1 tab QID PO 10/09/16 21:00 11/08/16 20:59 10/11/16 15:41 1 TAB Methylprednisolone Sodium Succinate 40 mg/Syringe 0.64 ml @ 1.5 mls/min DAILY IV 10/11/16 09:00 11/10/16 08:59 10/11/16 07:58 1.5 MLS/MIN Vancomycin HCl 600 mg/Sodium Chloride 262 ml @ 125 mls/hr Q8H IV 10/10/16 21:00 10/17/16 20:59 10/11/16 12:55 125 MLS/HR Acetaminophen/ Empty Bag (Ofirmev IV/ Empty Iv Bag 100ml) 65 ml @ 260 mls/hr Q6H PRN IV 10/10/16 20:00 11/09/16 19:59 10/10/16 20:36 260 MLS/HR Oxycodone HCl (Roxicodone Soln) 5 mg Q6 PO 10/11/16 12:00 10/25/16 11:59 10/11/16 12:54 5 MG Ioversol (Optiray 320) 100 ml UD PRN IV 10/11/16 08:30 10/15/16 08:29 Multivitamins Therapeutic (Cerovite Liquid) 15 ml QAM PO 10/11/16 09:00 11/10/16 08:59 10/11/16 10:56 15 ML Ascorbic Acid (Vitamin C Tab) 500 mg QAM PO 10/11/16 09:00 11/10/16 08:59 10/11/16 09:44 500 MG Zinc Sulfate 220 mg 220 mg QAM PO 10/11/16 09:00 11/10/16 08:59 10/11/16 09:44 220 MG Piperacillin Sod/ Tazobactam Sod/ Dextrose (Zosyn Iv/D5 100ml) 120 ml @ 28.75 mls/ hr Q8H IV 10/11/16 12:00 10/15/16 21:59 10/11/16 12:55 28.75 MLS/HR Lansoprazole (Prevacid Solutab) 30 mg DAILY NG 10/11/16 10:00 11/10/16 09:59 10/11/16 10:56 30 MG Oxymetazoline HCl (Afrin 0.05% Nasal [place]) 2 sprays Q6 NA 10/11/16 12:00 10/13/16 06:01 10/11/16 15:41 2 SPRAYS Metoprolol Tartrate (Lopressor Iv) 5 mg Q8H PRN IV 10/11/16 13:00 11/10/16 12:59 Metoprolol Tartrate (Lopressor Tab) 25 mg Q8 PO 10/11/16 14:00 11/10/16 13:59 10/11/16 14:35 25 MG Midazolam HCl (Versed Inj) 2 mg Q2H PRN IV 10/11/16 15:15 11/10/16 15:14
[2016-10-11] MEDS ORDERED: PHARMACY GLYCEMIC MGMT CONSULT PRN (18:15)
[2016-10-11] MEDS ORDERED: GLUCOSE 10 TABS/TUBE PO PRN (18:45)
[2016-10-11] MEDS ORDERED: GLUCOSE 40% GEL 15 GM TUBE PO PRN (18:45)
[2016-10-11] MEDS ORDERED: DEXTROSE 50% 50 ML SYR IV PRN (18:45)
[2016-10-11] MEDS ORDERED: GLUCAGON FOR INJ 1 MG VIAL SQ PRN (18:45)
[2016-10-11] MEDS: METOPROLOL TARTRATE 1 MG/ML VIAL IV PRN (20:27)
[2016-10-11] MEDS ORDERED: VANCOMYCIN TROUGH ONE (20:30)
[2016-10-11 23:05] LABS: ISTAT ARTERIAL BLOOD GAS HCO3 45 meq/L (19-24); ISTAT ARTERIAL BLOOD GAS PCO2 101 mmHg (35-46); ISTAT ARTERIAL BLOOD GAS PO2 133 mmHg (80-95); ISTAT ARTERIAL BLOOD GAS pH 7.26 (7.35-7.45); ISTAT CARBON DIOXIDE > 40 mEq/l (24-31); ISTAT DELIVERY SYSTEM Ventilator; ISTAT FIO2 40 %; ISTAT PEEP 5; ISTAT RATE 20; ISTAT SITE Art Line; Vt 300
[2016-10-11] MEDS ORDERED: OXYCODONE HCL SOLN 5 MG/5 ML UDC PO ONE (23:15)
[2016-10-11] MEDS ORDERED: DexMEDEtomidine IV DRIP IV STA (23:15)
[2016-10-11] MEDS: DexMEDEtomidine HCL INJ 200 MCG in SODIUM CHLORIDE 0.9% 50ML 48 ML IV PRN (23:56)
[2016-10-12] VITALS (36 sets, daily range): BP systolic 84–156; BP diastolic 58–91; PULSE 106–132; TEMP 37.1–38.1; O2SAT 90–100
[2016-10-12] MEDS: OXYMETAZOLINE HCL 0.05% NA SPR 15 ML BTL SCH ×5 (00:07→23:24)
[2016-10-12] MEDS: OXYCODONE HCL SOLN 5 MG/5 ML UDC PO SCH ×5 (01:16→23:23)
[2016-10-12] MEDS: INSULIN ASPART 100 UNITS/ML 3 ML PEN SC SCH ×8 (01:18→23:56)
[2016-10-12] MEDS: LEValbuterol HFA 15GM INHALER INH SCH ×6 (03:46→23:10)
[2016-10-12] MEDS: VANCOMYCIN INJ 600 MG in SODIUM CHLORIDE 0.9% 250ML 250 ML IV SCH ×4 (06:00→23:51)
[2016-10-12] MEDS: PIPERACILL/TAZOBAC IV 4.5 GM in DEXTROSE 5% 100ML 100 ML IV SCH ×3 (06:01→20:51)
[2016-10-12] MEDS: DOXYCYCLINE IV 100 MG in DEXTROSE 5% 100ML 100 ML IV SCH ×2 (06:01→17:30)
[2016-10-12] MEDS: METOPROLOL TARTRATE 25 MG TAB PO SCH ×4 (06:02→23:23)
[2016-10-12 06:22] LABS: PARTIAL THROMBOPLASTIN RATIO 2.4
[2016-10-12 07:04] LABS: ALT/SGPT 65 U/L (12-78); AST/SGOT 103 U/L (15-37); BLOOD UREA NITROGEN 23 mg/dl (7-18); BUN/CREATININE RATIO 88.1 (10-20); CALCIUM 7.6 mg/dl (8.5-10.1); CARBON DIOXIDE 44 mmol/L (21-32); CHLORIDE 105 mmol/L (98-107); CREATININE 0.26 mg/dl (0.60-1.20); GLUCOSE 144 mg/dl (70-99); PHOSPHORUS 2.6 mg/dl (2.5-4.9); POTASSIUM 4.8 mmol/L (3.5-5.1); SODIUM 149 mmol/L (136-145)
[2016-10-12 07:06] LABS: HEMATOCRIT 36.6 % (37-47); MEAN CELL VOLUME 107.3 fL (80-100); MEAN CORPUSCULAR HEMOGLOBIN 31.1 pg (25-34); MEAN PLATELET VOLUME 8.7 fL (7.4-10.4); PLATELET COUNT 331 K/uL (130-400); RED BLOOD COUNT 3.41 M/uL (4.2-5.4); WHITE BLOOD COUNT 11.35 K/uL (4.8-10.8)
[2016-10-12 07:13] LABS: ALB/GLOB RATIO 0.7 (0.9-2); ALKALINE PHOSPHATASE 91 U/L (45-117); PREALBUMIN 10.5 mg/dl (20-40)
--- NOTE | 2016-10-12 07:46 | DIAGNOSTIC IMAGING REPORT ---
CHEST ONE VIEW PORTABLE CLINICAL HISTORY: Intubation. COMPARISON STUDY: Chest radiograph and chest CT October 11, 2016. FINDINGS: The tip of the nasogastric tube is below the lower aspect of this image but at least within the mid body of the stomach. Positioning of the endotracheal tube is satisfactory. There is no pneumothorax. Small bilateral pleural effusions persist. Linear bilateral opacities persist. There is mild interstitial thickening. IMPRESSION: 1. Satisfactory positioning of lines and tubes. 2. Persistent small bilateral pleural effusions. 3. Pulmonary vascular congestion with possible mild edema. 4. No change in linear bilateral opacities. Electronically signed by: Ranjit Crowe M.D. 10/12/2016 7:44 AM Dictated Date/Time: 10/12/2016 7:41 AM
--- NOTE | 2016-10-12 09:10 | CARDIOLOGY PROGRESS NOTE ---
DATE: 10/12/2016 The patient seen and examined. Chart, medications, telemetry reviewed. SUBJECTIVE: The patient remains sedated and intubated. She remains tachycardic overnight and sinus tachycardia. Prior trials per records and discussion of weaning of have been poorly tolerated. OBJECTIVE: VITAL SIGNS: Heart rate 129, blood pressure is 115/82. NECK: Thin. There is no distinct jugular venous distention. LUNGS: Reveal coarse airway sounds with few scattered crackles. CARDIOVASCULAR: Regular, tachycardic. ABDOMEN: Soft. EXTREMITIES: Free of edema. LABORATORY DATA: White cell count is 11.3, hemoglobin is 10.6, sodium 149, potassium is 4.8, chloride is 105, bicarbonate is 44, BUN is 23, creatinine 0.26, albumin level is 2.2. 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 PLAN: From cardiac standpoint, we are going to continue to titrate beta vivi up. We will increase metoprolol to 37.5 mg q. 6 hours per NG tube. Hopefully, by controlling heart rate, we will aid in overall functional status. The patient has been anticoagulated with heparin due to cardiomyopathy. At this point in time, after 3 days anticoagulation may be considered switch to DVT prophylaxis as heart rate slows. If heart rate slows, we would consider repeat echocardiogram later this week. Reassess LV function. Continue respiratory support. Overall, prognosis is limited given baseline.
[2016-10-12] MEDS ORDERED: METOPROLOL TARTRATE 25 MG TAB PO ONE (09:30)
[2016-10-12 09:33] LABS: ISTAT ARTERIAL BLOOD GAS PCO2 65 mmHg (35-46); ISTAT ARTERIAL BLOOD GAS PO2 100 mmHg (80-95)
[2016-10-12 09:34] LABS: ISTAT ARTERIAL BLOOD GAS pH 7.33 (7.35-7.45); ISTAT SAMPLE TYPE ARTERIAL
[2016-10-12 09:35] LABS: ISTAT ARTERIAL BLOOD GAS HCO3 34 meq/L (19-24); ISTAT CARBON DIOXIDE 36 mEq/l (24-31); ISTAT DELIVERY SYSTEM Ventilator
[2016-10-12 09:36] LABS: ISTAT SITE Art Line; ISTAT SPO2 98 %
[2016-10-12 09:37] LABS: ISTAT PEEP 5; ISTAT RATE 28
[2016-10-12 09:38] LABS: ISTAT ARTERIAL BLOOD GAS PCO2 69 mmHg (35-46); ISTAT ARTERIAL BLOOD GAS PO2 69 mmHg (80-95)
[2016-10-12 09:39] LABS: ISTAT ARTERIAL BLOOD GAS HCO3 33 meq/L (19-24); ISTAT CARBON DIOXIDE 35 mEq/l (24-31); ISTAT SAMPLE TYPE ARTERIAL
[2016-10-12 09:40] LABS: ISTAT ARTERIAL BLOOD GAS pH 7.28 (7.35-7.45); ISTAT DELIVERY SYSTEM Ventilator; ISTAT PEEP 5; ISTAT RATE 28; ISTAT SITE Art Line
[2016-10-12 09:41] LABS: ISTAT ARTERIAL BLOOD GAS HCO3 34 meq/L (19-24); ISTAT ARTERIAL BLOOD GAS PCO2 75 mmHg (35-46); ISTAT ARTERIAL BLOOD GAS PO2 76 mmHg (80-95); ISTAT ARTERIAL BLOOD GAS pH 7.27 (7.35-7.45); ISTAT CARBON DIOXIDE 36 mEq/l (24-31); ISTAT SAMPLE TYPE ARTERIAL
[2016-10-12 09:42] LABS: ISTAT ARTERIAL BLOOD GAS PCO2 107 mmHg (35-46)
[2016-10-12 09:42] LABS: ISTAT DELIVERY SYSTEM Ventilator; ISTAT PEEP 5; ISTAT RATE 28; ISTAT SITE Art Line
[2016-10-12 09:43] LABS: ISTAT ARTERIAL BLOOD GAS HCO3 36 meq/L (19-24); ISTAT ARTERIAL BLOOD GAS PO2 90 mmHg (80-95); ISTAT CARBON DIOXIDE 39 mEq/l (24-31); ISTAT DELIVERY SYSTEM Ventilator; ISTAT SAMPLE TYPE ARTERIAL; ISTAT SITE Art Line
[2016-10-12 09:45] LABS: ISTAT ARTERIAL BLOOD GAS pH 7.13 (7.35-7.45)
[2016-10-12 09:46] LABS: ISTAT ARTERIAL BLOOD GAS HCO3 35 meq/L (19-24); ISTAT ARTERIAL BLOOD GAS PCO2 89 mmHg (35-46); ISTAT ARTERIAL BLOOD GAS PO2 107 mmHg (80-95); ISTAT CARBON DIOXIDE 38 mEq/l (24-31); ISTAT SAMPLE TYPE ARTERIAL
[2016-10-12 09:47] LABS: ISTAT DELIVERY SYSTEM Ventilator; ISTAT PEEP 5; ISTAT RATE 28; ISTAT SITE Art Line
[2016-10-12 09:48] LABS: ISTAT ARTERIAL BLOOD GAS PCO2 91 mmHg (35-46); ISTAT ARTERIAL BLOOD GAS PO2 109 mmHg (80-95)
[2016-10-12 09:49] LABS: ISTAT ARTERIAL BLOOD GAS HCO3 36 meq/L (19-24); ISTAT CARBON DIOXIDE 39 mEq/l (24-31); ISTAT DELIVERY SYSTEM Ventilator; ISTAT PEEP 5; ISTAT RATE 20; ISTAT SAMPLE TYPE ARTERIAL; ISTAT SITE Art Line
[2016-10-12 09:50] LABS: ISTAT ARTERIAL BLOOD GAS HCO3 43 meq/L (19-24); ISTAT ARTERIAL BLOOD GAS PCO2 89 mmHg (35-46); ISTAT ARTERIAL BLOOD GAS PO2 117 mmHg (80-95); ISTAT CARBON DIOXIDE 46 mEq/l (24-31)
[2016-10-12 09:51] LABS: ISTAT DELIVERY SYSTEM Ventilator; ISTAT PEEP 5; ISTAT RATE 20; ISTAT SAMPLE TYPE ARTERIAL; ISTAT SITE Art Line
[2016-10-12 09:53] LABS: ISTAT ARTERIAL BLOOD GAS HCO3 42 meq/L (19-24); ISTAT ARTERIAL BLOOD GAS PCO2 111 mmHg (35-46); ISTAT ARTERIAL BLOOD GAS PO2 83 mmHg (80-95); ISTAT CARBON DIOXIDE 45 mEq/l (24-31); ISTAT DELIVERY SYSTEM Ventilator; ISTAT SAMPLE TYPE ARTERIAL; ISTAT SITE Art Line
[2016-10-12 09:54] LABS: ISTAT PEEP 10
[2016-10-12 09:55] LABS: ISTAT ARTERIAL BLOOD GAS pH 7.18 (7.35-7.45)
[2016-10-12] MEDS: ASPIRIN 81 MG CHEW PEG SCH (10:01)
[2016-10-12] MEDS: LANSOPRAZOLE SOLUTAB 30 MG NG SCH (10:01)
[2016-10-12] MEDS: POT PHOSPHATE MONOBASIC W/ SOD TAB PO SCH ×4 (10:01→20:52)
[2016-10-12] MEDS: ASCORBIC ACID 500 MG TAB PO SCH (10:01)
[2016-10-12] MEDS: OSELTAMIVIR PHOSPHATE 6 MG/ML SUSP PO SCH ×2 (10:01→21:16)
[2016-10-12] MEDS: METHYLPREDNISOLONE IV 40 MG in SYRINGE 0 ML IV SCH ×4 (10:01→23:24)
[2016-10-12] MEDS: DORZOLAMIDE/TIMOLOL 22.3/6.8MG/ML 10 ML BTL OPB SCH ×2 (10:02→20:52)
[2016-10-12] MEDS: PrednisoLONE ACET 1% OP SUSP 5 ML BTL OPB SCH ×2 (10:02→20:52)
[2016-10-12] MEDS: ZINC SULFATE 220 MG CAP PO SCH (10:02)
[2016-10-12] MEDS: MULTIVITAMINS W/MINERALS 15ML UDP PO SCH (10:02)
[2016-10-12] MEDS: BRIMONIDINE TARTRATE-P 0.15% 5 ML BTL OPL SCH ×2 (10:03→20:52)
--- NOTE | 2016-10-12 10:22 | Critical Care Progress Note ---
Critical Care Progress Note Date of Service Oct 12, 2016. ICU Day ICU Day Number: [address] Stover Subjective Mrs. Mak is a 51 yo female who presented on 10/08/16 with severe respiratory acidosis, acuter hypercapnic respiratory failure requiring intubation, and stress induced NSTEMI likely secondary to Influenza A and COPD exacerbation. This is day 5 in the ICU on intubation for this patient. Today she continues to be difficult to arouse. Her Versed has been discontinued and Precedex 0.4mg/kg/hr continues to run. We have had significant discussion at multi-disciplinary rounds regarding this pt and her survivability versus quality of life. To my understanding Dr. Mcfarland & Dr. Stover have both individually discussed tracheostomy/PEG tube placement with the son and , who have both expressed that she would never want such measures. They are not able to yet make a decision to proceed with aggressive care versus hospice. They have stated that they do not want her transferred anywhere else other than home. I was with Dr. Mcfarland when he warned the family that if she was intubated, she may not be able to come off the vent and they consented to this. They stated, "give her a chance to fight." Dr. Stover has also spoke with them about the steward/stewardess tourist class recovery period if aggressive care were to be continued. They are continuing to consider their options. ROS could not be obtained due intubation and condition. Objective Vital Signs - as noted Laboratory Data - as noted Physical Exam: General - Sedated on Precedex, Currently unarousable Eyes - Pupils equal, unresponsive to light, hazy left eye, No icterus, gaze conjugate ENT - ET Tube in place at 23cm with OG tube in place, dentures slightly dislodge above ET Tube Neck - Supple, trachea midline, no masses or lymphadenopathy, no JVD or bruits Lungs - No paradoxical chest wall movement, Lungs coarse throughout, equal, No rhonchi noted, slight wheeze to left upper field, no crackles noted Heart - Sinus Tach 120-130's, No murmur, rubs, clicks, or gallops appreciated Abdomen - BS presented, no bruits noted, tympanic to percussion, nontender, Mildly distended, no organomegaly Extremities - No edema, No left pedal pulses noted when left leg was slightly elevated. Tip of left toes purple/blue at tips,Pulses present by Doppler & Ultrasound; Repositioned pts leg: pulses then present & demonstrated improvement of color Neuro - A&OX0; no rectal tone with rectal prolapse Skin: Decubitus Ulcer Stage 1, non blanchable intact; Stage 2 ulcer in mid upper back about 1cm by 1cm, non draining and intact. Vaseline Gauze in place over rectal prolapse Strength: Could not be assessed CN:equal pupils, unresponsive to light, no facial asymmetry Assessment & Plan (1) Acute hypercapnic respiratory failure Likely multifactorial; infectious process on chest x-ray (pneumonia), influenza A positive, and COPD exacerbation CXR 10/12/16: Small bilateral pleural effusions persist. Linear bilateral opacities persist. There is mild interstitial thickening. Sedation: * Continue to reduce sedation and arouse pt/ * Decrease sedation, Turn Precedex back from 0.4 to 0.2 Intubated 7.5 ET Tube, 23cm at the lip Settings changed this morning @0930 * Vol A/C: Rate 16/vol 0.45/peak pressure 65/ peep 5/ 30%FIO2 * Repeat ABG ordered for 1hr later Further Respiratory Regimen management per Dr. Stover * Xopenex 4puffs QID * Change Solu-Medrol 40mg q 6hrs * Continue Daily Spontaneous Breathing trial: attempted today; unable to sustain. Discontinue Heparin drip: Bilateral lower extremity Doppler's and Chest CT negative; Cardiology ok to discontinue Chlorhexadine Mouth Care in place HOB at 30* (2) Respiratory acidosis Received 4 Amps HCO3 & Negra dosed at 9ml/kg Slowly improving ABG 10/11 @ 2251 7.26/101/133/45 Repeat ABG ordered; Called Respiratory to come obtain * Continue AGBs q4 or with changes Continue daily spontaneous breathing trials (3) Pneumonia Repeat Cultures (10/11) pending Influenza A positive Negative Sputum Culture: Will consider de-escalation after repeat blood cultures result A febrile currently, Temp to 38.1 this morning (T MAX 39.1 on 10/10) * Tylenol IV in place PRN Fever * Increased risk of infection due to intubation and length of stay. Continue Broad Spectrum Abx: Day 5 * Doxycycline 100 mg IV every 12 hours * Vancomycin 600 mg IV every 6hours * Zosyn 4.5g IV every 8 hours (4) COPD exacerbation As noted in Resp Failure (5) Elevated troponin Dr. Gardner now following, likely due to hypoxemia from acute illness Troponin trending up: 8.2 --> 11.1 --> 11.4 --> 12.2--> 9.5 Continue ASA chewable 81mg via OG Tube Discontinue Heparin Infusion per cardiology; plan to increase BB Will start DVT prophylaxis Monitor on telemetry (6) Cardiomyopathy Dr. Gardner now in place ECHO 10/08: Severe LV systolic dysfunction, LV ejection fraction 20-25% compared to normal EF in June 2015 Repeat ECHO later this week per Cardiology once heart rate slows Increased Lopressor 37.5 q 6hrs Cardiology following closely Monitor on telemetry (7) Prolonged Q-T interval on ECG QTc Peaked at 544; Improved to 402 Avoid QTc Prolonging Medications Continue to monitor daily; Repeat EKG (8) Multiple sclerosis Follows with Dr. Fernandes Pain Management as out-pt; consider consult as pt improves Continue Oxycodone 5mg PO q6hrs for baseline pain control (9) Rectal mucosa prolapse Surgery Consulted: Vaseline gauze to the area to prevent desiccation Check area q shift, keep Vaseline gauze in place (10) Hypophosphatemia Phosphate WNL with morning labs Continue to monitor closely and replete as needed Repeat lab this afternoon (11) Decubitus ulcer of back Wound care consult in place Per nursing: site unchanged from previous day. Sacrum and back wound noted today Continue aggressive nutritional support ID: As noted in PNA Ophthalmology: * Continue home regimen of drops Heme: * H&H declining; likely dilational as she is +6L this admission * 20 of Lasix ordered * Continue to follow daily H&H * D/C Heparin Drip Begin DVT Prophylaxis 5,000u sq q8hrs : * +6L as above * Lasix ordered * Zambrano in place * Monitor I&Os Endo: BSGs: 228-138 Pharmacy consult for Glycemic Control Protonix in place for GI prophylaxis GI: Continue Impact Tube Feeds At Goal 45mls/hr Access: * Right Femoral Central & Arterial line CCT: 45 minutes; not including any billable procedures Thank you for including us in the care of this pt. Please review Dr. Stover's addendum for further recommendations. Attending addendum, the pt seen and examined, chart reviewed and discussed in details with the staff and with the family on two different occasions. A/P; 1- acute on chronic hypercapneic resp failure. 2- severe COPD , now on MV. 3- MS , appeared to be mild to moderate. 4- cardiomyopathy with poor EF. 5- persistent tachycardia. 6- influenza pneumonia on treatment. Plan: 1- agree with my colleague Ariela Dewitt, PAC. 2- change vent to AC mode with higher VT due to hyperinflation. 3- diuresis. 4- stop sedation, the pt is overly sedated. 5- continue current ABx. 6- prophylaxis for DVT and GI. 7- stop heparin drip. 8- appreciate all consults. 9- change steroids to full dose of solu 40 mg q6h. 10- TF. 11- long discussion took place with the family, decided to continue the current treatment for the next 2 days, if no improvement they are leaning towards withdrawaing but the pt wishes are not to persue trach tube placement. i do believe that the pt has a small chance but worth following. CCt 45 min. Consults & Procedures Consultants: Cardiology: Dr. Krishnamurthy; Now [facility] Wound Care Procedures: R. Fem Central Line 10/08 R Fem Art Line 10/08 Data Medications: Current Inpatient Medications Medications (Trade) Dose Ordered Sig/Rajan Route Start Time Stop Time Status Last Admin Dose Admin Vancomycin HCl 1 ea 1 ea UD N/A 10/08/16 14:45 11/07/16 14:44 Doxycycline Hyclate/Dextrose (Vibramycin IV/ D5 100ml) 110 ml @ 50 mls/hr Q12H IV 10/09/16 04:00 10/16/16 03:59 10/12/16 06:01 50 MLS/HR Piperacillin Sod/ Tazobactam Sod (Consult) 1 ea UD N/A 10/08/16 15:00 11/07/16 14:59 Oseltamivir Phosphate (Tamiflu Susp) 150 mg BID PO 10/08/16 21:00 10/13/16 20:59 10/12/16 10:01 150 MG Fentanyl Citrate (Fentanyl Inj) 50 mcg Q2H PRN IV 10/09/16 08:30 10/23/16 08:29 10/11/16 20:28 50 MCG Levalbuterol (Xopenex Hfa Inhaler) 4 puffs Q4R INH 10/09/16 12:00 11/08/16 11:59 10/12/16 03:46 4 PUFFS Aspirin 81 mg 81 mg DAILY PEG 10/10/16 09:00 11/09/16 08:59 10/12/16 10:01 81 MG Heparin Sodium/ Dextrose (Heparin 25,000 Unit/500ml D5W) 500 ml @ 8 mls/hr Q24H PRN IV 10/09/16 09:45 11/08/16 09:44 10/11/16 14:37 8 MLS/HR Brimonidine Tartrate (Alphagan-P 0.15% Oph Soln) 1 drops BID OPL 10/09/16 11:00 11/08/16 10:59 10/12/16 10:03 1 DROPS Dorzolamide/ Timolol (Cosopt Op Soln) 1 drops BID OPB 10/09/16 11:00 11/08/16 10:59 10/12/16 10:02 1 DROPS Prednisolone Acetate (Pred Forte 1% Oph Susp) 1 drops BID OPB 10/09/16 11:00 11/08/16 10:59 10/12/16 10:02 1 DROPS Enteral Nutritional Formula (Impact 1.0 Jaime) 1,000 ml UD OG 10/09/16 11:15 11/08/16 11:14 10/11/16 18:19 1,000 ML Potassium/ Phosphorus/Sodium 1 tab 1 tab QID PO 10/09/16 21:00 11/08/16 20:59 10/12/16 10:01 1 TAB Methylprednisolone Sodium Succinate 40 mg/Syringe 0.64 ml @ 1.5 mls/min DAILY IV 10/11/16 09:00 11/10/16 08:59 10/12/16 10:01 1.5 MLS/MIN Acetaminophen/ Empty Bag (Ofirmev IV/ Empty Iv Bag 100ml) 65 ml @ 260 mls/hr Q6H PRN IV 10/10/16 20:00 11/09/16 19:59 10/10/16 20:36 260 MLS/HR Oxycodone HCl (Roxicodone Soln) 5 mg Q6 PO 10/11/16 12:00 10/25/16 11:59 10/12/16 06:04 5 MG Ioversol (Optiray 320) 100 ml UD PRN IV 10/11/16 08:30 10/15/16 08:29 Multivitamins Therapeutic (Cerovite Liquid) 15 ml QAM PO 10/11/16 09:00 11/10/16 08:59 10/12/16 10:02 15 ML Ascorbic Acid (Vitamin C Tab) 500 mg QAM PO 10/11/16 09:00 11/10/16 08:59 10/12/16 10:01 500 MG Zinc Sulfate 220 mg 220 mg QAM PO 10/11/16 09:00 11/10/16 08:59 10/12/16 10:02 220 MG Piperacillin Sod/ Tazobactam Sod/ Dextrose (Zosyn Iv/D5 100ml) 120 ml @ 28.75 mls/ hr Q8H IV 10/11/16 12:00 10/15/16 21:59 10/12/16 06:01 28.75 MLS/HR Lansoprazole (Prevacid Solutab) 30 mg DAILY NG 10/11/16 10:00 11/10/16 09:59 10/12/16 10:01 30 MG Oxymetazoline HCl (Afrin 0.05% Nasal [place]) 2 sprays Q6 NA 10/11/16 12:00 10/13/16 06:01 10/12/16 06:01 2 SPRAYS Metoprolol Tartrate (Lopressor Iv) 5 mg Q8H PRN IV 10/11/16 13:00 11/10/16 12:59 10/11/16 20:27 5 MG Midazolam HCl (Versed Inj) 2 mg Q2H PRN IV 10/11/16 15:15 11/10/16 15:14 10/11/16 20:28 2 MG Miscellaneous Information (Consult Glycemic Management Pharmacy) 1 ea UD PRN N/A 10/11/16 18:15 11/10/16 18:14 Insulin Aspart (novoLOG ASPART) SLIDING SCALE Q6 SC 10/12/16 18:00 11/11/16 17:59 Glucose (Glucose 40% Gel) 15-30 GRAMS 15 GRAMS... UD PRN PO 10/11/16 18:45 11/10/16 18:44 Glucose (Glucose Chew Tab) 4-8 Tablets 4 Tabl... UD PRN PO 10/11/16 18:45 11/10/16 18:44 Dextrose (Dextrose 50% 50ML Syringe) 25-50ML OF 50% DW IV FOR... UD PRN IV 10/11/16 18:45 11/10/16 18:44 Glucagon (Glucagon Inj) 1 mg UD PRN SQ 10/11/16 18:45 11/10/16 18:44 Insulin Aspart 2 units 2 units Q6 SC 10/12/16 00:00 11/11/16 00:00 10/12/16 06:11 2 UNITS Dexmedetomidine HCl/Sodium Chloride (PreCEDEX INJ/ Nss 50ml) 50 ml @ 0 mls/hr Q0M PRN IV 10/11/16 23:30 10/15/16 23:29 10/11/16 23:56 1.8 MLS/HR Metoprolol Tartrate 37.5 mg 37.5 mg Q6 PO 10/12/16 12:00 11/11/16 11:59 Vancomycin HCl/ Sodium Chloride (Vancomycin Inj/ Nss 250ml) 262 ml @ 125 mls/hr Q6H IV 10/12/16 12:00 10/15/16 23:59 Miscellaneous Information (Nursing Heparin Iv Rate Change) 1 ea ONE ONCE N/A 10/12/16 10:00 10/12/16 10:01 UNV I & O: 24-Hour Column 10/12/16 08:00 Intake Total 4129 ml Output Total 1550 ml Balance 2579 ml Vital Signs: Date Time Temp Pulse Resp B/P Pulse Ox O2 Delivery O2 Flow Rate FiO2 10/12/16 07:35 40 10/12/16 06:28 131 27 114/82 97 10/12/16 06:00 132 25 139/69 97 10/12/16 05:58 130 25 116/76 97 10/12/16 05:44 40 10/12/16 05:43 Mechanical Ventilator 40 10/12/16 05:43 40 10/12/16 05:28 129 23 115/82 97 10/12/16 05:00 123 19 122/62 98 10/12/16 04:58 122 21 100/73 98 10/12/16 04:28 123 20 113/60 96 10/12/16 04:00 38.1 128 22 141/72 97 10/12/16 03:58 128 24 113/85 97 10/12/16 03:46 40 10/12/16 03:28 127 21 98/71 97 10/12/16 03:00 125 21 123/61 97 10/12/16 02:58 125 21 105/64 97 10/12/16 02:30 40 10/12/16 02:28 123 22 94/66 97 10/12/16 02:00 121 23 116/58 98 10/12/16 01:58 118 23 97/69 98 10/12/16 01:30 120 24 84/66 10/12/16 01:29 122 23 120/62 98 10/12/16 01:00 122 27 132/64 98 10/12/16 00:13 Mechanical Ventilator 40 10/12/16 00:13 40 10/12/16 00:01 125 29 110/73 98 Mechanical Ventilator 40 10/12/16 00:00 126 29 139/70 98 Mechanical Ventilator 40 10/11/16 23:59 36.8 123 28 110/73 99 Mechanical Ventilator 40 10/11/16 23:29 134 29 109/87 94 Mechanical Ventilator 40 10/11/16 23:08 40 10/11/16 23:00 136 28 148/76 98 Mechanical Ventilator 40 10/11/16 22:58 136 30 127/95 98 Mechanical Ventilator 40 10/11/16 22:29 131 26 117/77 98 Mechanical Ventilator 40 10/11/16 22:00 37.4 123 22 134/68 98 Mechanical Ventilator 40 10/11/16 21:58 123 21 114/77 98 Mechanical Ventilator 40 10/11/16 21:28 114 22 99/74 98 Mechanical Ventilator 40 10/11/16 21:00 113 23 111/60 96 Mechanical Ventilator 40 10/11/16 20:58 113 23 93/63 96 Mechanical Ventilator 40 10/11/16 20:28 127 21 105/76 99 Mechanical Ventilator 40 10/11/16 20:27 127 126/67 10/11/16 20:20 40 10/11/16 20:06 Mechanical Ventilator 40 10/11/16 20:06 40 10/11/16 20:00 37.5 128 21 129/68 97 Mechanical Ventilator 40 10/11/16 19:58 129 22 107/76 98 Mechanical Ventilator 40 10/11/16 19:28 124 23 101/73 98 Mechanical Ventilator 40 10/11/16 19:00 125 23 123/65 97 Mechanical Ventilator 40 10/11/16 18:13 37.5 122 24 118/60 96 Mechanical Ventilator 40 10/11/16 17:29 40 10/11/16 16:00 38.1 127 28 135/66 99 Mechanical Ventilator 40 10/11/16 16:00 Mechanical Ventilator 40 10/11/16 16:00 40 10/11/16 15:30 40 10/11/16 14:08 40 10/11/16 14:00 37.6 131 22 134/65 97 Mechanical Ventilator 40 10/11/16 12:42 141 143/69 10/11/16 12:00 116 30 103/44 97 Mechanical Ventilator 40 10/11/16 12:00 Mechanical Ventilator 40 10/11/16 12:00 40 10/11/16 11:32 40 10/11/16 10:09 40 Laboratory Results: Last 24 Hours Test 10/11/16 11:10 10/11/16 12:07 10/11/16 13:12 10/11/16 17:49 Blood Gas Specimen Type ARTERIAL Blood Gas Sample Site Art Line Art Line Blood Gas Patient Temperature 36.7 Bedside Blood Gas pH (LAB) 7.18 7.22 Bedside Blood Gas pCO2 (LAB) 111 mmHg 96 mmHg Bedside Blood Gas pO2 (LAB) 83 mmHg 96 mmHg Bedside Blood Gas HCO3 (LAB) 42 meq/L 39 meq/L Bedside Blood Gas Total CO2 45 mEq/l > 40 mEq/l Bedside Blood Gas Base Excess (LAB) 13.0 meq/L 11.0 meq/L Bedside Blood Gas O2 Saturation 92.0 % 95.0 % Jatin Test NA NA Oxygen Delivery Device Ventilator Ventilator Blood Gas PEEP 10 10 Bedside FiO2 40 % Bedside Glucose 204 mg/dl 248 mg/dl Test 10/11/16 20:12 10/11/16 22:51 10/12/16 01:10 10/12/16 05:46 Vancomycin Level Trough 7.8 mcg/ml Blood Gas Sample Site Art Line Bedside Blood Gas pH (LAB) 7.26 Bedside Blood Gas pCO2 (LAB) 101 mmHg Bedside Blood Gas pO2 (LAB) 133 mmHg Bedside Blood Gas HCO3 (LAB) 45 meq/L Bedside Blood Gas Total CO2 > 40 mEq/l Bedside Blood Gas Base Excess (LAB) 18.0 meq/L Bedside Blood Gas O2 Saturation 98.0 % Jatin Test NA Oxygen Delivery Device Ventilator Bedside Oxygen Rate (breaths/min) 20 Blood Gas Minute Ventilation 8.0 Bedside FiO2 40 % Blood Gas Tidal Volume 300 Blood Gas PEEP 5 Bedside Glucose 228 mg/dl White Blood Count 11.35 K/uL Red Blood Count 3.41 M/uL Hemoglobin 10.6 g/dL Hematocrit 36.6 % Mean Corpuscular Volume 107.3 fL Mean Corpuscular Hemoglobin 31.1 pg Mean Corpuscular Hemoglobin Concent 29.0 g/dl RDW Standard Deviation 55.9 fL RDW Coefficient of Variation 14.2 % Platelet Count 331 K/uL Mean Platelet Volume 8.7 fL Nucleated RBC Absolute Count (auto) 0.04 K/uL Nucleated Red Blood Cells % 0.3 % Activated Partial Thromboplast Time 62.1 SECONDS Partial Thromboplastin Ratio 2.4 Sodium Level 149 mmol/L Potassium Level 4.8 mmol/L Chloride Level 105 mmol/L Carbon Dioxide Level 44 mmol/L Anion Gap 0.0 mmol/L Blood Urea Nitrogen 23 mg/dl Creatinine 0.26 mg/dl Est Creatinine Clear Calc Drug Dose 159.1 ml/min Estimated GFR () > 150.0 Estimated GFR (Non- 140.9 BUN/Creatinine Ratio 88.1 Random Glucose 144 mg/dl Calcium Level 7.6 mg/dl Phosphorus Level 2.6 mg/dl Total Bilirubin 0.1 mg/dl Aspartate Amino Transf (AST/SGOT) 103 U/L Alanine Aminotransferase (ALT/SGPT) 65 U/L Alkaline Phosphatase 91 U/L Total Protein 5.3 gm/dl Albumin 2.2 gm/dl Globulin 3.1 gm/dl Albumin/Globulin Ratio 0.7 Prealbumin 10.5 mg/dl Test 10/12/16 06:07 Bedside Glucose 138 mg/dl
[2016-10-12] MEDS: DexMEDEtomidine HCL INJ 200 MCG in SODIUM CHLORIDE 0.9% 50ML 48 ML IV PRN (11:13)
[2016-10-12] MEDS ORDERED: FLUMAZENIL 0.1 MG/1 ML 10 ML VIAL IV STA (11:19)
[2016-10-12] MEDS ORDERED: FUROSEMIDE INJ 20 MG in SYRINGE 0 ML IV ONE (11:30)
[2016-10-12 12:00] LABS: ISTAT ARTERIAL BLOOD GAS HCO3 41 meq/L (19-24); ISTAT ARTERIAL BLOOD GAS PCO2 65 mmHg (35-46); ISTAT ARTERIAL BLOOD GAS PO2 62 mmHg (80-95); ISTAT ARTERIAL BLOOD GAS pH 7.41 (7.35-7.45); ISTAT CARBON DIOXIDE > 40 mEq/l (24-31); ISTAT DELIVERY SYSTEM Ventilator; ISTAT FIO2 30 %; ISTAT PEEP 5; ISTAT RATE 16; ISTAT SITE Art Line; VE 8.7; Vt 450
[2016-10-12] MEDS: HEPARIN SOD 5000 UNIT/0.5 ML CARP SQ SCH ×2 (13:47→21:03)
--- NOTE | 2016-10-12 14:19 | Palliative Care Consultation ---
Consultation Date of Consultation: Oct 12, 2016. Requesting Physician: Ariela Dewitt PA-C Attending Physician: Dr. Akers Reason for Consultation: Goals of care History of Present Illness This 51 year old female patient presented to the ED five days ago with respiratory failure. Per report, patient had told her "I need oxygen," and became short of breath. When she arrived to the ED, she was in respiratory distress, pH 6.9 on bipap and she was becoming less responsive. She was intubated in the ED and admitted to ICU. The stated that she has had several sick contacts, and she did in fact test positive for influenza A. CXR showed multifocal pneumonia so she was started on antibiotics, nebulizer treatments and Solu-Medrol. Her heart rate was in the 160s and treated with 10mg IV Cardizem, troponin 8 and EKG showed new T-wave inversions. Cardiology consulted who did start her on a Cardizem gtt. Echo showed EF of 20-25%, severely reduced LV systolic function, and mild mitral regurgitation. 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 She also required Levophed for hypotension; Cardizem was eventually changed to IV digoxin. The patient has failed any CPAP trials on the ventilator and is not improving neurologically. Her sedation was reversed today with flumazenil and she is still not waking up or responding to any stimuli. The family has indicated several times that the patient would not want to be on life support, they only made the decision to intubate her in order to "give her a fighting chance." Unfortunately, this patient does have a history of debilitating multiple sclerosis, COPD, malnutrition and others as listed below. Palliative care consulted to assist with establishing goals of care. The patient was completely unresponsive when I assessed her, even to noxious stimuli. Family had just left the room after meeting with Dr. Stover and Dr. Akers. Both physicians explained patient's current condition and discussed rather poor prognosis. The family apparently understands that as the patient approaches a week on the ventilator, the decision will have to be made to continue with aggressive treatment such as trach, PEG tube, and LTACH placement vs. comfort/palliative care. The family expressed that they would like to continue with current treatment and they will discuss and work together to make decision. I called the patient's , Sidney, twice and got no answer. Will revisit patient's room this afternoon. Past Medical/Surgical History Medical History: COPD Pulmonary nodules Hypertension Glaucoma MS Cachexia Surgical History: Left hip replacement Social History Smoking Status: Current Every Day Smoker (1pack/day, since 15yo) History of Alcohol Use: No (per record) Housing Status: lives with family Review of Systems unable to obtain, patient obtunded on ventilator Allergies Coded Allergies: No Known Allergies (Unverified , 02/12/16) Medications Current Inpatient Medications Medications (Trade) Dose Ordered Sig/Rajan Route Start Time Stop Time Status Last Admin Dose Admin Vancomycin HCl 1 ea 1 ea UD N/A 10/08/16 14:45 11/07/16 14:44 Doxycycline Hyclate/Dextrose (Vibramycin IV/ D5 100ml) 110 ml @ 50 mls/hr Q12H IV 10/09/16 04:00 10/16/16 03:59 10/12/16 06:01 50 MLS/HR Piperacillin Sod/ Tazobactam Sod (Consult) 1 ea UD N/A 10/08/16 15:00 11/07/16 14:59 Oseltamivir Phosphate (Tamiflu Susp) 150 mg BID PO 10/08/16 21:00 10/13/16 20:59 10/12/16 10:01 150 MG Fentanyl Citrate (Fentanyl Inj) 50 mcg Q2H PRN IV 10/09/16 08:30 10/23/16 08:29 10/11/16 20:28 50 MCG Levalbuterol (Xopenex Hfa Inhaler) 4 puffs Q4R INH 10/09/16 12:00 11/08/16 11:59 10/12/16 03:46 4 PUFFS Aspirin (Aspirin Chew) 81 mg DAILY PEG 10/10/16 09:00 11/09/16 08:59 10/12/16 10:01 81 MG Brimonidine Tartrate (Alphagan-P 0.15% Oph Soln) 1 drops BID OPL 10/09/16 11:00 11/08/16 10:59 10/12/16 10:03 1 DROPS Dorzolamide/ Timolol (Cosopt Op Soln) 1 drops BID OPB 10/09/16 11:00 11/08/16 10:59 10/12/16 10:02 1 DROPS Prednisolone Acetate (Pred Forte 1% Oph Susp) 1 drops BID OPB 10/09/16 11:00 11/08/16 10:59 10/12/16 10:02 1 DROPS Enteral Nutritional Formula (Impact 1.0 Jaime) 1,000 ml UD OG 10/09/16 11:15 11/08/16 11:14 10/11/16 18:19 1,000 ML Potassium/ Phosphorus/Sodium 1 tab 1 tab QID PO 10/09/16 21:00 11/08/16 20:59 10/12/16 12:05 1 TAB Acetaminophen/ Empty Bag (Ofirmev IV/ Empty Iv Bag 100ml) 65 ml @ 260 mls/hr Q6H PRN IV 10/10/16 20:00 11/09/16 19:59 10/10/16 20:36 260 MLS/HR Oxycodone HCl (Roxicodone Soln) 5 mg Q6 PO 10/11/16 12:00 10/25/16 11:59 10/12/16 12:06 5 MG Ioversol (Optiray 320) 100 ml UD PRN IV 10/11/16 08:30 10/15/16 08:29 Multivitamins Therapeutic (Cerovite Liquid) 15 ml QAM PO 10/11/16 09:00 11/10/16 08:59 10/12/16 10:02 15 ML Ascorbic Acid (Vitamin C Tab) 500 mg QAM PO 10/11/16 09:00 11/10/16 08:59 10/12/16 10:01 500 MG Zinc Sulfate 220 mg 220 mg QAM PO 10/11/16 09:00 11/10/16 08:59 10/12/16 10:02 220 MG Piperacillin Sod/ Tazobactam Sod/ Dextrose (Zosyn Iv/D5 100ml) 120 ml @ 28.75 mls/ hr Q8H IV 10/11/16 12:00 10/15/16 21:59 10/12/16 12:04 28.75 MLS/HR Lansoprazole (Prevacid Solutab) 30 mg DAILY NG 10/11/16 10:00 11/10/16 09:59 10/12/16 10:01 30 MG Oxymetazoline HCl (Afrin 0.05% Nasal [place]) 2 sprays Q6 NA 10/11/16 12:00 10/13/16 06:01 10/12/16 12:04 2 SPRAYS Metoprolol Tartrate (Lopressor Iv) 5 mg Q8H PRN IV 10/11/16 13:00 11/10/16 12:59 10/11/16 20:27 5 MG Miscellaneous Information (Consult Glycemic Management Pharmacy) 1 ea UD PRN N/A 10/11/16 18:15 11/10/16 18:14 Glucose (Glucose 40% Gel) 15-30 GRAMS 15 GRAMS... UD PRN PO 10/11/16 18:45 11/10/16 18:44 Glucose (Glucose Chew Tab) 4-8 Tablets 4 Tabl... UD PRN PO 10/11/16 18:45 11/10/16 18:44 Dextrose (Dextrose 50% 50ML Syringe) 25-50ML OF 50% DW IV FOR... UD PRN IV 10/11/16 18:45 11/10/16 18:44 Glucagon (Glucagon Inj) 1 mg UD PRN SQ 10/11/16 18:45 11/10/16 18:44 Insulin Aspart 2 units 2 units Q6 SC 10/12/16 00:00 11/11/16 00:00 10/12/16 12:24 2 UNITS Dexmedetomidine HCl/Sodium Chloride (PreCEDEX INJ/ Nss 50ml) 50 ml @ 0 mls/hr Q0M PRN IV 10/11/16 23:30 10/15/16 23:29 10/12/16 11:13 1.9 MLS/HR Metoprolol Tartrate 37.5 mg 37.5 mg Q6 PO 10/12/16 12:00 11/11/16 11:59 10/12/16 12:05 37.5 MG Vancomycin HCl/ Sodium Chloride (Vancomycin Inj/ Nss 250ml) 262 ml @ 125 mls/hr Q6H IV 10/12/16 12:00 10/15/16 23:59 10/12/16 12:04 125 MLS/HR Insulin Aspart SLIDING SCALE Q6 SC 10/12/16 12:00 11/11/16 11:59 Methylprednisolone Sodium Succinate/ Syringe (Solu-Medrol IV/ Syringe) 0.64 ml @ 1.5 mls/min Q6 IV 10/12/16 12:00 11/11/16 11:59 10/12/16 12:02 1.5 MLS/MIN Heparin Sodium (Porcine) (Heparin Sq 5000 Unit/0.5ml) 5,000 unit Q8 SQ 10/12/16 14:00 11/11/16 13:59 Physical Exam Date Time Temp Pulse Resp B/P Pulse Ox O2 Delivery O2 Flow Rate FiO2 10/12/16 12:27 125 18 144/71 94 Mechanical Ventilator 30 10/12/16 12:00 Mechanical Ventilator 30 10/12/16 12:00 30 10/12/16 10:00 124 18 132/61 90 Mechanical Ventilator 40 10/12/16 08:00 30 10/12/16 08:00 121 12 136/66 92 Mechanical Ventilator 40 10/12/16 08:00 Mechanical Ventilator 40 10/12/16 07:35 40 10/12/16 06:28 131 27 114/82 97 10/12/16 06:00 132 25 139/69 97 10/12/16 05:58 130 25 116/76 97 10/12/16 05:44 40 10/12/16 05:43 Mechanical Ventilator 40 10/12/16 05:43 40 10/12/16 05:28 129 23 115/82 97 10/12/16 05:00 123 19 122/62 98 10/12/16 04:58 122 21 100/73 98 10/12/16 04:28 123 20 113/60 96 10/12/16 04:00 38.1 128 22 141/72 97 10/12/16 03:58 128 24 113/85 97 10/12/16 03:46 40 10/12/16 03:28 127 21 98/71 97 10/12/16 03:00 125 21 123/61 97 10/12/16 02:58 125 21 105/64 97 10/12/16 02:30 40 10/12/16 02:28 123 22 94/66 97 10/12/16 02:00 121 23 116/58 98 10/12/16 01:58 118 23 97/69 98 10/12/16 01:30 120 24 84/66 10/12/16 01:29 122 23 120/62 98 10/12/16 01:00 122 27 132/64 98 10/12/16 00:13 Mechanical Ventilator 40 10/12/16 00:13 40 10/12/16 00:01 125 29 110/73 98 Mechanical Ventilator 40 10/12/16 00:00 126 29 139/70 98 Mechanical Ventilator 40 10/11/16 23:59 36.8 123 28 110/73 99 Mechanical Ventilator 40 10/11/16 23:29 134 29 109/87 94 Mechanical Ventilator 40 10/11/16 23:08 40 10/11/16 23:00 136 28 148/76 98 Mechanical Ventilator 40 10/11/16 22:58 136 30 127/95 98 Mechanical Ventilator 40 10/11/16 22:29 131 26 117/77 98 Mechanical Ventilator 40 10/11/16 22:00 37.4 123 22 134/68 98 Mechanical Ventilator 40 10/11/16 21:58 123 21 114/77 98 Mechanical Ventilator 40 10/11/16 21:28 114 22 99/74 98 Mechanical Ventilator 40 10/11/16 21:00 113 23 111/60 96 Mechanical Ventilator 40 10/11/16 20:58 113 23 93/63 96 Mechanical Ventilator 40 10/11/16 20:28 127 21 105/76 99 Mechanical Ventilator 40 10/11/16 20:27 127 126/67 10/11/16 20:20 40 10/11/16 20:06 Mechanical Ventilator 40 10/11/16 20:06 40 10/11/16 20:00 37.5 128 21 129/68 97 Mechanical Ventilator 40 10/11/16 19:58 129 22 107/76 98 Mechanical Ventilator 40 10/11/16 19:28 124 23 101/73 98 Mechanical Ventilator 40 10/11/16 19:00 125 23 123/65 97 Mechanical Ventilator 40 10/11/16 18:13 37.5 122 24 118/60 96 Mechanical Ventilator 40 10/11/16 17:29 40 10/11/16 16:00 38.1 127 28 135/66 99 Mechanical Ventilator 40 10/11/16 16:00 Mechanical Ventilator 40 10/11/16 16:00 40 10/11/16 15:30 40 10/11/16 14:08 40 10/11/16 14:00 37.6 131 22 134/65 97 Mechanical Ventilator 40 General Appearance: + cachetic, + thin Eyes: + pertinent finding (bilateral pupils 4mm and sluggish) ENT: + pertinent finding (ETT in place) Neck: no JVD Respiratory: + decreased breath sounds, + rhonchi (coarse throughout), + pertinent finding (mechanically ventilated, appears to be "guppy breathing". On 40% FiO2) Cardiovascular: no edema, + tachycardia, + normal peripheral pulses Abdomen: normal bowel sounds, non tender, soft Neurologic/Psychiatric: + pertinent finding (obtunded) Skin: normal color Laboratory Results Last 24 Hours Test 10/11/16 17:49 10/11/16 20:12 10/11/16 22:51 10/12/16 01:10 Bedside Glucose 248 mg/dl 228 mg/dl Vancomycin Level Trough 7.8 mcg/ml Blood Gas Sample Site Art Line Bedside Blood Gas pH (LAB) 7.26 Bedside Blood Gas pCO2 (LAB) 101 mmHg Bedside Blood Gas pO2 (LAB) 133 mmHg Bedside Blood Gas HCO3 (LAB) 45 meq/L Bedside Blood Gas Total CO2 > 40 mEq/l Bedside Blood Gas Base Excess (LAB) 18.0 meq/L Bedside Blood Gas O2 Saturation 98.0 % Jatin Test NA Oxygen Delivery Device Ventilator Bedside Oxygen Rate (breaths/min) 20 Blood Gas Minute Ventilation 8.0 Bedside FiO2 40 % Blood Gas Tidal Volume 300 Blood Gas PEEP 5 Test 10/12/16 05:46 10/12/16 06:07 10/12/16 11:44 10/12/16 12:21 White Blood Count 11.35 K/uL Red Blood Count 3.41 M/uL Hemoglobin 10.6 g/dL Hematocrit 36.6 % Mean Corpuscular Volume 107.3 fL Mean Corpuscular Hemoglobin 31.1 pg Mean Corpuscular Hemoglobin Concent 29.0 g/dl RDW Standard Deviation 55.9 fL RDW Coefficient of Variation 14.2 % Platelet Count 331 K/uL Mean Platelet Volume 8.7 fL Nucleated RBC Absolute Count (auto) 0.04 K/uL Nucleated Red Blood Cells % 0.3 % Activated Partial Thromboplast Time 62.1 SECONDS Partial Thromboplastin Ratio 2.4 Sodium Level 149 mmol/L Potassium Level 4.8 mmol/L Chloride Level 105 mmol/L Carbon Dioxide Level 44 mmol/L Anion Gap 0.0 mmol/L Blood Urea Nitrogen 23 mg/dl Creatinine 0.26 mg/dl Est Creatinine Clear Calc Drug Dose 159.1 ml/min Estimated GFR () > 150.0 Estimated GFR (Non- 140.9 BUN/Creatinine Ratio 88.1 Random Glucose 144 mg/dl Calcium Level 7.6 mg/dl Phosphorus Level 2.6 mg/dl Total Bilirubin 0.1 mg/dl Aspartate Amino Transf (AST/SGOT) 103 U/L Alanine Aminotransferase (ALT/SGPT) 65 U/L Alkaline Phosphatase 91 U/L Total Protein 5.3 gm/dl Albumin 2.2 gm/dl Globulin 3.1 gm/dl Albumin/Globulin Ratio 0.7 Prealbumin 10.5 mg/dl Bedside Glucose 138 mg/dl 168 mg/dl Blood Gas Sample Site Art Line Bedside Blood Gas pH (LAB) 7.41 Bedside Blood Gas pCO2 (LAB) 65 mmHg Bedside Blood Gas pO2 (LAB) 62 mmHg Bedside Blood Gas HCO3 (LAB) 41 meq/L Bedside Blood Gas Total CO2 > 40 mEq/l Bedside Blood Gas Base Excess (LAB) 16.0 meq/L Bedside Blood Gas O2 Saturation 90.0 % Jatin Test NA Oxygen Delivery Device Ventilator Bedside Oxygen Rate (breaths/min) 16 Blood Gas Minute Ventilation 8.7 Bedside FiO2 30 % Blood Gas Tidal Volume 450 Blood Gas PEEP 5 Assessment & Plan Palliative Performance Scale: 20 % Problem list: Acute hypercapnic respiratory failure Respiratory acidosis Pneumonia COPD exacerbation Elevated troponin Cardiomyopathy Prolonged QT interval Multiple Sclerosis Rectal prolapse Decubitus on back Malnutrition, low BMI Goals of care (Z51.5) Palliative care plan: After the family spoke with Dr. Stover in the evening, they are leaning toward comfort measures only. Would like to continue on with treatment at this time until tomorrow when all family is here with the patient. The , Sidney Mak , and two son made the decision. I will follow up tomorrow.
--- NOTE | 2016-10-12 14:44 | Pharmacy Progress Note ---
Glycemic Control Intl Consult Date of Service Oct 12, 2016. Scope Glycemic Pharmacist consulted by Dr Akers on 10/11/16 for glycemic control and to write orders per [facility] inpatient glycemic control protocol. Objective Weight (Kilograms): 38.500 Accuchecks BSG (last 24hrs): Test 10/11/16 17:49 10/12/16 01:10 10/12/16 05:46 10/12/16 06:07 Bedside Glucose 248 mg/dl (70-90) 228 mg/dl (70-90) 138 mg/dl (70-90) Random Glucose 144 mg/dl (70-99) Test 10/12/16 12:21 Bedside Glucose 168 mg/dl (70-90) Laboratory Data (last 24hrs) Test 10/12/16 05:46 Anion Gap 0.0 mmol/L BUN/Creatinine Ratio 88.1 Blood Urea Nitrogen 23 mg/dl Creatinine 0.26 mg/dl Potassium Level 4.8 mmol/L Sodium Level 149 mmol/L White Blood Count 11.35 K/uL Recent Pertinent Medications Outpatient Anti-diabetic Regimen: * n/a Risk Factors for Insulin Resistance: * Steroids: SoluMedrol 40mg IV q6h * Infection: Zosyn/Vanc/Doxy/Tamiflu -- for pna/flu * IVF: Heparin gtt, Precedex gtt * Diet: Impact tube feeds @ 45cc/hr (goal rate) * Mechanical Ventilation: yes Assessment & Plan ASSESSMENT: * Patient is a 51yo female admitted with respiratory failure, pna/influenza. Pt is not a known diabetic, but is experiencing hyperglycemia d/t steroid use and stress. * Last evening, Novolog was added for carb coverage with tube feeds and as correction for hyperglycemia. BSGs have been reasonable today, so regimen seems to be appropriate. * Pharmacy will continue to monitor and adjust as needed. * ADA & AACE recommend a goal blood sugar range 140-180 mg/dl for the majority of critically ill & non-critically ill patients. However, more stringent targets may be selected in individual cases. PLAN FOR INPATIENT GLYCEMIC CONTROL: * No basal insulin required at this time. * If patient requires large daily quantities of insulin, will consider adding some basal in the future. * Correctional Insulin with NOVOLOG per scale Q6hrs while NPO/on tube feeds * Goal Range: Low 140 mg/dL - High 180 mg/dL * Correction Factor: 45 mg/dL/unit * Nutritional / Prandial insulin: give 2 units SQ q6h while receiving Impact at 45cc/hr -- Impact @ 45cc/hr provides 35gm CHO per 6 hours -- hold if tube feeds are held or decreased from goal rate * Please note that the plan above was derived based on current level of insulin resistance and hospital stress. These recommendations are appropriate for inpatient admission only. Plan of care upon discharge will need to be reassessed to avoid potential outpatient hypo/hyperglycemia. Thank you.
--- NOTE | 2016-10-12 14:54 | Pharmacy Progress Note ---
Pharmacy Antibiotic Prog Note Date of Service: Oct 12, 2016. Subjective: The patient is currently receiving Vancomycin 600 mg IV every 8 hours. The patient is currently on day # 5 of Vancomycin IV therapy. Objective: Height (Feet): 5 Height (Inches): 1.00 Weight (Kilograms): 38.500 Levels: Item Value Date Time Vancomycin Level Trough 7.8 mcg/ml 10/11/162011 Lab Results (24hrs): Laboratory Tests Test 10/12/16 05:46 BUN/Creatinine Ratio 88.1 Blood Urea Nitrogen 23 mg/dl Creatinine 0.26 mg/dl White Blood Count 11.35 K/uL Micro Results: Item Value Date Time Blood Culture Received 10/11/16 1648 Blood Pending Blood Culture Received 10/11/16 1645 Blood Pending Urine Culture - Final Complete 10/08/16 1420 Urine,Catheterized NO GROWTH - LESS THAN 1,000 COLONIES/ML Gram Stain - Final Complete 10/08/16 1400 Sputum Trach. Tube Suction NO GROWTH MRSA DNA Surveillance Screen - Final Complete 10/08/16 1345 Nasal Specimen Negative for MRSA by DNA Probe Blood Culture - Preliminary Resulted 10/08/16 1025 Blood NO GROWTH TO DATE. Blood Culture - Preliminary Resulted 10/08/16 1020 Blood NO GROWTH TO DATE. Recent Pertinent Medications: Patient is also receiving: * Doxycycline 100mg IV q12h (Day # 5) * Zosyn 4.5gm IV q8h, extended 4-hr infusion (Day # 5) * Tamiflu 150mg PO BID (Day # 5) Assessment & Plan: VANCOMYCIN: * This drug level is: Subtherapeutic. * Patient has been difficult to get to therapeutic levels, as she appears to have very high vanc clearance. Will continue to adjust and monitor, but choosing an alternative agent may be necessary if patient continues to be subtherapeutic on vancomycin. * Change to Vancomycin 600 mg IV every 6 hours. * Goal trough level estimate: between 15 - 20 mcg/mL. * Tough level has been ordered for: 10/13/16 prior to the dose due at 0600, which should reflect steady-state with new dosing regimen Pharmacy will continue to follow and will adjust dose/frequency as necessary. Thank you
[2016-10-12] MEDS ORDERED: INSULIN ASPART 100 UNITS/ML 3 ML PEN SC SCH (18:00)
--- NOTE | 2016-10-12 19:04 | Progress Note ---
Medicine Progress Note Date & Time of Visit: Oct 12, 2016 at 18:50. Subjective Pt was seen and examined Sedated on vent support Pt had been intubated on vent support for 5 days now in the ICU with no sign of awakening Discussed with and son that said they cannot continue to see her like that They will give her a couple days and if no change, they will change code status to [facility] They agreed to speak with the palliative care nurse Objective Last 8 Hrs Date Time Temp Pulse Resp B/P Pulse Ox O2 Delivery O2 Flow Rate FiO2 10/12/16 15:08 30 10/12/16 14:12 37.5 114 20 124/62 95 Mechanical Ventilator 30 10/12/16 12:27 125 18 144/71 94 Mechanical Ventilator 30 10/12/16 12:00 Mechanical Ventilator 30 10/12/16 12:00 30 10/12/16 11:29 30 Physical Exam: General- sedated on ventilator support, Head- atraumatic Eyes- PERRL ENT- ET tube in good position Neck- supple, no JVD Lungs- Coarse BS Heart- tachycardia Abdomen- Hypoactive bowel sound Extremities-no calf tenderness Neuro- Sedated on Precedex Skin- warm & dry Laboratory Results: Last 24 Hours Test 10/11/16 20:12 10/11/16 22:51 10/12/16 01:10 10/12/16 05:46 Vancomycin Level Trough 7.8 mcg/ml Blood Gas Sample Site Art Line Bedside Blood Gas pH (LAB) 7.26 Bedside Blood Gas pCO2 (LAB) 101 mmHg Bedside Blood Gas pO2 (LAB) 133 mmHg Bedside Blood Gas HCO3 (LAB) 45 meq/L Bedside Blood Gas Total CO2 > 40 mEq/l Bedside Blood Gas Base Excess (LAB) 18.0 meq/L Bedside Blood Gas O2 Saturation 98.0 % Jatin Test NA Oxygen Delivery Device Ventilator Bedside Oxygen Rate (breaths/min) 20 Blood Gas Minute Ventilation 8.0 Bedside FiO2 40 % Blood Gas Tidal Volume 300 Blood Gas PEEP 5 Bedside Glucose 228 mg/dl White Blood Count 11.35 K/uL Red Blood Count 3.41 M/uL Hemoglobin 10.6 g/dL Hematocrit 36.6 % Mean Corpuscular Volume 107.3 fL Mean Corpuscular Hemoglobin 31.1 pg Mean Corpuscular Hemoglobin Concent 29.0 g/dl RDW Standard Deviation 55.9 fL RDW Coefficient of Variation 14.2 % Platelet Count 331 K/uL Mean Platelet Volume 8.7 fL Nucleated RBC Absolute Count (auto) 0.04 K/uL Nucleated Red Blood Cells % 0.3 % Activated Partial Thromboplast Time 62.1 SECONDS Partial Thromboplastin Ratio 2.4 Sodium Level 149 mmol/L Potassium Level 4.8 mmol/L Chloride Level 105 mmol/L Carbon Dioxide Level 44 mmol/L Anion Gap 0.0 mmol/L Blood Urea Nitrogen 23 mg/dl Creatinine 0.26 mg/dl Est Creatinine Clear Calc Drug Dose 159.1 ml/min Estimated GFR () > 150.0 Estimated GFR (Non- 140.9 BUN/Creatinine Ratio 88.1 Random Glucose 144 mg/dl Calcium Level 7.6 mg/dl Phosphorus Level 2.6 mg/dl Total Bilirubin 0.1 mg/dl Aspartate Amino Transf (AST/SGOT) 103 U/L Alanine Aminotransferase (ALT/SGPT) 65 U/L Alkaline Phosphatase 91 U/L Total Protein 5.3 gm/dl Albumin 2.2 gm/dl Globulin 3.1 gm/dl Albumin/Globulin Ratio 0.7 Prealbumin 10.5 mg/dl Test 10/12/16 06:07 10/12/16 11:44 10/12/16 12:21 10/12/16 14:00 Bedside Glucose 138 mg/dl 168 mg/dl Blood Gas Sample Site Art Line Bedside Blood Gas pH (LAB) 7.41 Bedside Blood Gas pCO2 (LAB) 65 mmHg Bedside Blood Gas pO2 (LAB) 62 mmHg Bedside Blood Gas HCO3 (LAB) 41 meq/L Bedside Blood Gas Total CO2 > 40 mEq/l Bedside Blood Gas Base Excess (LAB) 16.0 meq/L Bedside Blood Gas O2 Saturation 90.0 % Jatin Test NA Oxygen Delivery Device Ventilator Bedside Oxygen Rate (breaths/min) 16 Blood Gas Minute Ventilation 8.7 Bedside FiO2 30 % Blood Gas Tidal Volume 450 Blood Gas PEEP 5 Phosphorus Level 1.9 mg/dl Test 10/12/16 18:24 Bedside Glucose 149 mg/dl Assessment & Plan Acute hypercapnic respiratory acidosis/Sepsis -Secondary to COPD exacerbation and multilobar pneumonia VS influenza -Sedation change from versed to Precedex, on vent support -On broad spectrum IV antibiotics with Zosyn, vanco and Doxy - Continue IV steroid -theophylline and Terbutaline discontinued -Blood cx and sputum cx no growth so far -Vent setting changed ABG PH 7.41 today - Monitor ABG and electrolytes - Continue Daily spontaneous awakening trials -Continue monitor in the ICU -Might consider to start anabolic steroid - Continue on vent support, if unable to wean her off, consider tracheostomy option - Family said that as per pt wishes, she will not want to live with a trach - Palliative care consulted CT chest showed moderately severe emphysema with stable bilateral parenchymal opacities, likely representing areas of scarring/chronic inflammation. Areas of bronchial wall thickening and mucous plugging. ELEVATED TROPONIN - Possible related to sepsis and respiratory acidosis that lead to cardiac ischemia - Mostly stress induce cardiomyopathy - EKG did not show any ST depression - Troponin on admission 8, then increase to 11 ----> 12 -->9 (today) - Started on heparin drip by Cardio, heparin drip d/c - Continue Aspirin. BB increased -Cardiology consider to repeat the Echo once HR slow down - Echo showed * The study was performed on and urgent basis in the ICU, Bed 108 due to ventilator dependent respiratory failure, and elevted troponin I. * Sinus tachycardia at 125 bpm was present during the echocardiogram study. * There is diffuse left ventricular hypokinesis to akinesis at the mid and apical levels with comparative sparing of the basal segments. * Left ventricular systolic function is severely reduced. * The qualitative left ventricular Ejection Fraction = 20-25%. * The right ventricle is normal in size and function. * There is mild tricuspid regurgitation. * The calculated pulmonary artery systolic pressure is normal, 35 mm Hg. * There is no evidence of atrial septal defect, but resolution does not allow assessment for a patent foramen ovale. SINUS TACHYCARDIA Possible related to sepsis Diltiazem was started and D/C due to the inotropic effect increased metoprolol to 37.5 mg BID Received an additional dose of digoxin. digoxin level is low Venous doppler u/s negative for DVT CTA thorax negative for PE ELECTROLYTES IMBALANCE Possible related to refeeding syndrome Phosphate replaced daily continue monitor electrolytes DECUBITUS ULCER OF BACK Daily wound care Wound care consult INFLUENZA A Continue oseltamivir for 5 days. Rectal mucosa prolapse Avoid drying out of the mucosa Apply Vaseline gauze to the area to prevent desiccation HTN - Diltiazem was discontinue -BP stable GI px PPI DVT PROPHYLAXIS - On heparin subq Code Status FULL CODE Consultants: Cardio [employer]inary [employer] Current Inpatient Medications: Current Inpatient Medications Medications (Trade) Dose Ordered Sig/Rajan Route Start Time Stop Time Status Last Admin Dose Admin Vancomycin HCl 1 ea 1 ea UD N/A 10/08/16 14:45 11/07/16 14:44 Doxycycline Hyclate/Dextrose (Vibramycin IV/ D5 100ml) 110 ml @ 50 mls/hr Q12H IV 10/09/16 04:00 10/16/16 03:59 10/12/16 17:30 50 MLS/HR Piperacillin Sod/ Tazobactam Sod (Consult) 1 ea UD N/A 10/08/16 15:00 11/07/16 14:59 Oseltamivir Phosphate (Tamiflu Susp) 150 mg BID PO 10/08/16 21:00 10/13/16 20:59 10/12/16 10:01 150 MG Fentanyl Citrate (Fentanyl Inj) 50 mcg Q2H PRN IV 10/09/16 08:30 10/23/16 08:29 10/11/16 20:28 50 MCG Levalbuterol (Xopenex Hfa Inhaler) 4 puffs Q4R INH 10/09/16 12:00 11/08/16 11:59 10/12/16 15:06 4 PUFFS Aspirin (Aspirin Chew) 81 mg DAILY PEG 10/10/16 09:00 11/09/16 08:59 10/12/16 10:01 81 MG Brimonidine Tartrate (Alphagan-P 0.15% Oph Soln) 1 drops BID OPL 10/09/16 11:00 11/08/16 10:59 10/12/16 10:03 1 DROPS Dorzolamide/ Timolol (Cosopt Op Soln) 1 drops BID OPB 10/09/16 11:00 11/08/16 10:59 10/12/16 10:02 1 DROPS Prednisolone Acetate (Pred Forte 1% Oph Susp) 1 drops BID OPB 10/09/16 11:00 11/08/16 10:59 10/12/16 10:02 1 DROPS Enteral Nutritional Formula (Impact 1.0 Jaime) 1,000 ml UD OG 10/09/16 11:15 11/08/16 11:14 10/11/16 18:19 1,000 ML Potassium/ Phosphorus/Sodium 1 tab 1 tab QID PO 10/09/16 21:00 11/08/16 20:59 10/12/16 17:32 1 TAB Acetaminophen/ Empty Bag (Ofirmev IV/ Empty Iv Bag 100ml) 65 ml @ 260 mls/hr Q6H PRN IV 10/10/16 20:00 11/09/16 19:59 10/10/16 20:36 260 MLS/HR Oxycodone HCl (Roxicodone Soln) 5 mg Q6 PO 10/11/16 12:00 10/25/16 11:59 10/12/16 17:31 5 MG Ioversol (Optiray 320) 100 ml UD PRN IV 10/11/16 08:30 10/15/16 08:29 Multivitamins Therapeutic (Cerovite Liquid) 15 ml QAM PO 10/11/16 09:00 11/10/16 08:59 10/12/16 10:02 15 ML Ascorbic Acid (Vitamin C Tab) 500 mg QAM PO 10/11/16 09:00 11/10/16 08:59 10/12/16 10:01 500 MG Zinc Sulfate 220 mg 220 mg QAM PO 10/11/16 09:00 11/10/16 08:59 10/12/16 10:02 220 MG Piperacillin Sod/ Tazobactam Sod/ Dextrose (Zosyn Iv/D5 100ml) 120 ml @ 28.75 mls/ hr Q8H IV 10/11/16 12:00 10/15/16 21:59 10/12/16 12:04 28.75 MLS/HR Lansoprazole (Prevacid Solutab) 30 mg DAILY NG 10/11/16 10:00 11/10/16 09:59 10/12/16 10:01 30 MG Oxymetazoline HCl (Afrin 0.05% Nasal [place]) 2 sprays Q6 NA 10/11/16 12:00 10/13/16 06:01 10/12/16 17:31 2 SPRAYS Metoprolol Tartrate (Lopressor Iv) 5 mg Q8H PRN IV 10/11/16 13:00 11/10/16 12:59 10/11/16 20:27 5 MG Miscellaneous Information (Consult Glycemic Management Pharmacy) 1 ea UD PRN N/A 10/11/16 18:15 11/10/16 18:14 Glucose (Glucose 40% Gel) 15-30 GRAMS 15 GRAMS... UD PRN PO 10/11/16 18:45 11/10/16 18:44 Glucose (Glucose Chew Tab) 4-8 Tablets 4 Tabl... UD PRN PO 10/11/16 18:45 11/10/16 18:44 Dextrose (Dextrose 50% 50ML Syringe) 25-50ML OF 50% DW IV FOR... UD PRN IV 10/11/16 18:45 11/10/16 18:44 Glucagon (Glucagon Inj) 1 mg UD PRN SQ 10/11/16 18:45 11/10/16 18:44 Insulin Aspart 2 units 2 units Q6 SC 10/12/16 00:00 11/11/16 00:00 10/12/16 18:30 2 UNITS Dexmedetomidine HCl/Sodium Chloride (PreCEDEX INJ/ Nss 50ml) 50 ml @ 0 mls/hr Q0M PRN IV 10/11/16 23:30 10/15/16 23:29 10/12/16 11:13 1.9 MLS/HR Metoprolol Tartrate 37.5 mg 37.5 mg Q6 PO 10/12/16 12:00 11/11/16 11:59 10/12/16 17:32 37.5 MG Vancomycin HCl/ Sodium Chloride (Vancomycin Inj/ Nss 250ml) 262 ml @ 125 mls/hr Q6H IV 10/12/16 12:00 10/15/16 23:59 10/12/16 17:33 125 MLS/HR Insulin Aspart SLIDING SCALE Q6 SC 10/12/16 12:00 11/11/16 11:59 Methylprednisolone Sodium Succinate/ Syringe (Solu-Medrol IV/ Syringe) 0.64 ml @ 1.5 mls/min Q6 IV 10/12/16 12:00 11/11/16 11:59 10/12/16 17:31 1.5 MLS/MIN Heparin Sodium (Porcine) (Heparin Sq 5000 Unit/0.5ml) 5,000 unit Q8 SQ 10/12/16 14:00 11/11/16 13:59 10/12/16 13:47 5,000 UNIT
[2016-10-12] MEDS: METOPROLOL TARTRATE 1 MG/ML VIAL IV PRN (23:25)
[2016-10-12] MEDS: FENTANYL CITRATE INJ 50 MCG/1 ML 2 ML VIAL IV PRN (23:51)
[2016-10-13] VITALS (10 sets, daily range): BP systolic 98–153; BP diastolic 60–91; PULSE 106–135; TEMP 36.3–37; O2SAT 92–100
[2016-10-13] MEDS: DOXYCYCLINE IV 100 MG in DEXTROSE 5% 100ML 100 ML IV SCH (03:18)
[2016-10-13] MEDS: PIPERACILL/TAZOBAC IV 4.5 GM in DEXTROSE 5% 100ML 100 ML IV SCH (03:18)
[2016-10-13] MEDS: FENTANYL CITRATE INJ 50 MCG/1 ML 2 ML VIAL IV PRN (03:19)
[2016-10-13] MEDS: LEValbuterol HFA 15GM INHALER INH SCH (03:31)
[2016-10-13] MEDS ORDERED: LORAZEPAM INJ 1 MG in SYRINGE 0.5 ML IV PRN (04:30)
[2016-10-13] MEDS ORDERED: MoRPHine SULFATE 2 MG/ML CARP ONE (04:37)
--- NOTE | 2016-10-13 04:41 | Progress Note ---
Internal Med Progress Note Date of Service: Oct 13, 2016. Provider Documentation: Made aware by RN of px family request for comfort measures to be initiated. Terminal wean/extubation in AM as per RN conversation w/ wharf tender helper. Vital Signs: Date Time Temp Pulse Resp B/P Pulse Ox O2 Delivery O2 Flow Rate FiO2 10/13/16 05:22 30 10/13/16 04:00 36.5 110 20 153/84 94 Mechanical Ventilator 122/91 10/13/16 04:00 30 10/13/16 04:00 Mechanical Ventilator 30 10/13/16 03:31 30 10/13/16 02:08 30 10/13/16 02:00 106 20 148/80 95 Mechanical Ventilator 10/13/16 02:00 106 20 148/80 95 10/13/16 00:00 36.7 108 20 152/79 94 Mechanical Ventilator 10/12/16 23:59 30 10/12/16 23:59 Mechanical Ventilator 30 10/12/16 23:25 126 168/86 10/12/16 23:10 30 10/12/16 22:00 116 22 123/91 97 Mechanical Ventilator 10/12/16 20:36 30 10/12/16 20:00 37.1 108 16 120/87 96 Mechanical Ventilator 10/12/16 20:00 Mechanical Ventilator 30 10/12/16 20:00 30 10/12/16 19:00 106 17 138/73 95 Mechanical Ventilator 10/12/16 18:58 107 18 112/77 96 Mechanical Ventilator 10/12/16 18:28 110 21 139/75 95 Mechanical Ventilator 10/12/16 18:00 125 18 156/80 95 Mechanical Ventilator 10/12/16 17:59 127 24 110/88 94 Mechanical Ventilator 10/12/16 17:28 117 16 112/78 100 Mechanical Ventilator 10/12/16 17:00 125 23 146/71 95 Mechanical Ventilator 10/12/16 16:58 119 18 121/82 95 Mechanical Ventilator 10/12/16 16:28 121 21 119/91 95 Mechanical Ventilator 10/12/16 16:00 37.3 118 21 133/66 96 Mechanical Ventilator 10/12/16 16:00 Mechanical Ventilator 30 10/12/16 16:00 30 10/12/16 15:08 30 10/12/16 14:12 37.5 114 20 124/62 95 Mechanical Ventilator 30 10/12/16 12:27 125 18 144/71 94 Mechanical Ventilator 30 10/12/16 12:00 Mechanical Ventilator 30 10/12/16 12:00 30 10/12/16 11:29 30 10/12/16 10:00 124 18 132/61 90 Mechanical Ventilator 40 10/12/16 08:00 30 10/12/16 08:00 121 12 136/66 92 Mechanical Ventilator 40 10/12/16 08:00 Mechanical Ventilator 40 10/12/16 08:00 Mechanical Ventilator 40 10/12/16 07:35 40 10/12/16 06:28 131 27 114/82 97 10/12/16 06:00 132 25 139/69 97 10/12/16 05:58 130 25 116/76 97 10/12/16 05:44 40 10/12/16 05:43 Mechanical Ventilator 40 10/12/16 05:43 40 Lab Results: Results Past 24 Hours Test 10/12/16 05:46 10/12/16 06:07 10/12/16 11:44 10/12/16 12:21 Range/Units White Blood Count 11.35 4.8-10.8 K/uL Red Blood Count 3.41 4.2-5.4 M/uL Hemoglobin 10.6 12.0-16.0 g/dL Hematocrit 36.6 37-47 % Mean Corpuscular Volume 107.3 80-100 fL Mean Corpuscular Hemoglobin 31.1 25-34 pg Mean Corpuscular Hemoglobin Concent 29.0 32-36 g/dl RDW Standard Deviation 55.9 36.4-46.3 fL RDW Coefficient of Variation 14.2 11.5-14.5 % Platelet Count 331 130-400 K/uL Mean Platelet Volume 8.7 7.4-10.4 fL Nucleated RBC Absolute Count (auto) 0.04 0-0 K/uL Nucleated Red Blood Cells % 0.3 % Activated Partial Thromboplast Time 62.1 21.0-31.0 SECONDS Partial Thromboplastin Ratio 2.4 Sodium Level 149 136-145 mmol/L Potassium Level 4.8 3.5-5.1 mmol/L Chloride Level 105 98-107 mmol/L Carbon Dioxide Level 44 21-32 mmol/L Anion Gap 0.0 3-11 mmol/L Blood Urea Nitrogen 23 7-18 mg/dl Creatinine 0.26 0.60-1.20 mg/dl Est Creatinine Clear Calc Drug Dose 159.1 ml/min Estimated GFR () > 150.0 Estimated GFR (Non- 140.9 BUN/Creatinine Ratio 88.1 10-20 Random Glucose 144 70-99 mg/dl Calcium Level 7.6 8.5-10.1 mg/dl Phosphorus Level 2.6 2.5-4.9 mg/dl Total Bilirubin 0.1 0.2-1 mg/dl Aspartate Amino Transf (AST/SGOT) 103 15-37 U/L Alanine Aminotransferase (ALT/SGPT) 65 12-78 U/L Alkaline Phosphatase 91 45-117 U/L Total Protein 5.3 6.4-8.2 gm/dl Albumin 2.2 3.4-5.0 gm/dl Globulin 3.1 2.5-4.0 gm/dl Albumin/Globulin Ratio 0.7 0.9-2 Prealbumin 10.5 20-40 mg/dl Bedside Glucose 138 168 70-90 mg/dl Blood Gas Sample Site Art Line Bedside Blood Gas pH (LAB) 7.41 7.35-7.45 Bedside Blood Gas pCO2 (LAB) 65 35-46 mmHg Bedside Blood Gas pO2 (LAB) 62 80-95 mmHg Bedside Blood Gas HCO3 (LAB) 41 19-24 meq/L Bedside Blood Gas Total CO2 > 40 24-31 mEq/l Bedside Blood Gas Base Excess (LAB) 16.0 -9-1.8 meq/L Bedside Blood Gas O2 Saturation 90.0 90-95 % Jatin Test NA Oxygen Delivery Device Ventilator Bedside Oxygen Rate (breaths/min) 16 Blood Gas Minute Ventilation 8.7 Bedside FiO2 30 % Blood Gas Tidal Volume 450 Blood Gas PEEP 5 Test 10/12/16 14:00 10/12/16 18:24 10/12/16 23:44 10/13/16 04:44 Range/Units Phosphorus Level 1.9 2.5-4.9 mg/dl Bedside Glucose 149 70-90 mg/dl Bedside Glucose (other) 245 70-99 mg/dl
[2016-10-13] MEDS: LORAZEPAM 2 MG/ML 1 ML VIAL IV PRN ×2 (04:52→06:05)
[2016-10-13] MEDS ORDERED: VANCOMYCIN TROUGH ONE (05:30)
[2016-10-13] MEDS: MoRPHine SULFATE 2 MG/ML CARP IV PRN ×6 (05:55→23:47)
--- NOTE | 2016-10-13 10:50 | Critical Care Progress Note ---
Critical Care Progress Note Date of Service Oct 13, 2016. Attending Dr. Stover Subjective no events overnight, remains off sedation and comatose, poor resp efforts on the vent. Objective Vital Signs - as noted Laboratory Data - as noted Physical Exam: General - Sedated on Precedex, Currently unarousable Eyes - Pupils equal, unresponsive to light, hazy left eye, No icterus, gaze conjugate ENT - ET Tube in place at 23cm with OG tube in place, dentures slightly dislodge above ET Tube Neck - Supple, trachea midline, no masses or lymphadenopathy, no JVD or bruits Lungs - No paradoxical chest wall movement, Lungs coarse throughout, equal, No rhonchi noted, slight wheeze to left upper field, no crackles noted Heart - Sinus Tach 120-130's, No murmur, rubs, clicks, or gallops appreciated Abdomen - BS presented, no bruits noted, tympanic to percussion, nontender, Mildly distended, no organomegaly Extremities - No edema, No left pedal pulses noted when left leg was slightly elevated. Tip of left toes purple/blue at tips,Pulses present by Doppler & Ultrasound; Repositioned pts leg: pulses then present & demonstrated improvement of color Neuro - A&OX0; no rectal tone with rectal prolapse Skin: Decubitus Ulcer Stage 1, non blanchable intact; Stage 2 ulcer in mid upper back about 1cm by 1cm, non draining and intact. Vaseline Gauze in place over rectal prolapse Strength: Could not be assessed CN:equal pupils, unresponsive to light, no facial asymmetry ROS is not obtainable. Assessment & Plan #1 acute on chronic resp failure. #2 severe COPD with exacerbation. #3 MS . #4 cachexia. #5 chronic pain on narcotics. Plan: #1 the family were at the bed side last night and they wanted to remove the MV , the family were updated till am, in which I have had a long discussion with the son and the whom they stated that the pt did not want any heroic measures any more. they would like her to go on comfort care rather than aggressive care. awaiting arrival of the rest of the family, we will arrange for terminal extubation. the etiology of severe coma likely related to recent hypoxic and hypercapneic resp failure. meds related is less likely as she did not respond to Romazicon . Narcan was not given as the pt was on chronic Oxycodone for many years which makes it unlikely to be the cause of her coma. given no improvement clinically from neurology standpoint , the family decided based on the pt's wishes not to persue trach tube placement. #2 Cpap trial at the bed showed the pt is not apneic, but rather with super weak resp muscles due to severe malnutrition and severe COPD. #3 discussed with the staff on rounds, case management on board as well as palliative care, appreciate their input. #4 continue current treatment until the family arrives at the bed side. then will terminally wean the pt. #5time spent with this pt and the family and coordinating the care for this pt was 45 min. Data Medications: Current Inpatient Medications Medications (Trade) Dose Ordered Sig/Rajan Route Start Time Stop Time Status Last Admin Dose Admin Morphine Sulfate 4 mg 4 mg Q15M PRN IV 10/13/16 04:30 10/27/16 04:29 10/13/16 05:55 4 MG Lorazepam/Syringe (Ativan Inj/ Syringe) 1 ml @ 1 mls/min Q15M PRN IV 10/13/16 04:30 11/12/16 04:29 Lorazepam (Ativan Inj) 1 mg Q15M PRN IV 10/13/16 04:45 11/12/16 04:44 10/13/16 06:05 1 MG I & O: 24-Hour Column 10/13/16 08:00 Intake Total 2892 ml Output Total 1725 ml Balance 1167 ml Vital Signs: Date Time Temp Pulse Resp B/P Pulse Ox O2 Delivery O2 Flow Rate FiO2 10/13/16 10:00 107 22 120/69 99 Mechanical Ventilator 105/74 10/13/16 08:00 30 10/13/16 08:00 Mechanical Ventilator 30 10/13/16 08:00 36.8 111 18 123/70 98 Mechanical Ventilator 108/76 10/13/16 08:00 30 10/13/16 06:00 118 16 132/69 92 Mechanical Ventilator 105/70 10/13/16 05:22 30 10/13/16 04:00 36.5 110 20 153/84 94 Mechanical Ventilator 122/91 10/13/16 04:00 30 10/13/16 04:00 Mechanical Ventilator 30 10/13/16 03:31 30 10/13/16 02:08 30 10/13/16 02:00 106 20 148/80 95 Mechanical Ventilator 10/13/16 02:00 106 20 148/80 95 10/13/16 00:00 36.7 108 20 152/79 94 Mechanical Ventilator 10/12/16 23:59 30 10/12/16 23:59 Mechanical Ventilator 30 10/12/16 23:25 126 168/86 10/12/16 23:10 30 10/12/16 22:00 116 22 123/91 97 Mechanical Ventilator 10/12/16 20:36 30 10/12/16 20:00 37.1 108 16 120/87 96 Mechanical Ventilator 10/12/16 20:00 Mechanical Ventilator 30 10/12/16 20:00 30 10/12/16 19:00 106 17 138/73 95 Mechanical Ventilator 10/12/16 18:58 107 18 112/77 96 Mechanical Ventilator 10/12/16 18:28 110 21 139/75 95 Mechanical Ventilator 10/12/16 18:00 125 18 156/80 95 Mechanical Ventilator 10/12/16 17:59 127 24 110/88 94 Mechanical Ventilator 10/12/16 17:28 117 16 112/78 100 Mechanical Ventilator 10/12/16 17:00 125 23 146/71 95 Mechanical Ventilator 10/12/16 16:58 119 18 121/82 95 Mechanical Ventilator 10/12/16 16:28 121 21 119/91 95 Mechanical Ventilator 10/12/16 16:00 37.3 118 21 133/66 96 Mechanical Ventilator 10/12/16 16:00 Mechanical Ventilator 30 10/12/16 16:00 30 10/12/16 15:08 30 10/12/16 14:12 37.5 114 20 124/62 95 Mechanical Ventilator 30 10/12/16 12:27 125 18 144/71 94 Mechanical Ventilator 30 10/12/16 12:00 Mechanical Ventilator 30 10/12/16 12:00 30 10/12/16 11:29 30 comatose, vss, on the vent, with cpap trial her Vt is too low due to muscular weakness. s1S2 RRR. lungs with distant BS. abdomen is benign. CCE. neuro is GCS <8, no response to tactile or verbal. Laboratory Results: Last 24 Hours Test 10/12/16 11:44 10/12/16 12:21 10/12/16 14:00 10/12/16 18:24 Blood Gas Sample Site Art Line Bedside Blood Gas pH (LAB) 7.41 Bedside Blood Gas pCO2 (LAB) 65 mmHg Bedside Blood Gas pO2 (LAB) 62 mmHg Bedside Blood Gas HCO3 (LAB) 41 meq/L Bedside Blood Gas Total CO2 > 40 mEq/l Bedside Blood Gas Base Excess (LAB) 16.0 meq/L Bedside Blood Gas O2 Saturation 90.0 % Jatin Test NA Oxygen Delivery Device Ventilator Bedside Oxygen Rate (breaths/min) 16 Blood Gas Minute Ventilation 8.7 Bedside FiO2 30 % Blood Gas Tidal Volume 450 Blood Gas PEEP 5 Bedside Glucose 168 mg/dl 149 mg/dl Phosphorus Level 1.9 mg/dl Test 10/12/16 23:44 Bedside Glucose (other) 245 mg/dl
--- NOTE | 2016-10-13 16:31 | Palliative Care Progress Note ---
Palliative Care Progress Note Date of Service Oct 13, 2016. 0900 Subjective Pt evaluation today including: conversation w/ patient, conversation w/ family , physical exam, chart review, conversation w/ home sales consultant Pain: unable to assess PO Intake: tube feeding shut off prior to terminal extubation Voiding: phoenix catheter in place Patient's sedation shut off and reversed yesterday morning. No neurologic function noted. No purposeful movement. CPAP trial on vent showed spontaneous breathing but very low tidal volumes. Met with Dr. Stover and patient's family: two sons, , and patient's father. They are all in agreement to pursue comfort measures only. They stated that patient does not have a good quality of life even before this incident. They know she would not want to live in a vegetative state and they want her to be comfortable. Review of Systems unable to obtain Objective Vital Signs Date Time Temp Pulse Resp B/P Pulse Ox O2 Delivery O2 Flow Rate FiO2 10/13/16 14:00 135 24 153/76 99 Mechanical Ventilator 122/85 10/13/16 12:00 30 10/13/16 12:00 Mechanical Ventilator 30 10/13/16 12:00 37.0 120 18 102/60 98 Mechanical Ventilator 98/66 10/13/16 10:00 107 22 120/69 99 Mechanical Ventilator 105/74 10/13/16 08:00 30 10/13/16 08:00 Mechanical Ventilator 30 10/13/16 08:00 36.8 111 18 123/70 98 Mechanical Ventilator 108/76 10/13/16 08:00 30 10/13/16 06:00 118 16 132/69 92 Mechanical Ventilator 105/70 10/13/16 05:22 30 10/13/16 04:00 36.5 110 20 153/84 94 Mechanical Ventilator 122/91 10/13/16 04:00 30 10/13/16 04:00 Mechanical Ventilator 30 10/13/16 03:31 30 10/13/16 02:08 30 10/13/16 02:00 106 20 148/80 95 Mechanical Ventilator 10/13/16 02:00 106 20 148/80 95 10/13/16 00:00 36.7 108 20 152/79 94 Mechanical Ventilator 10/12/16 23:59 30 10/12/16 23:59 Mechanical Ventilator 30 10/12/16 23:25 126 168/86 1/23/17 23:10 30 10/12/16 22:00 116 22 123/91 97 Mechanical Ventilator 10/12/16 20:36 30 10/12/16 20:00 37.1 108 16 120/87 96 Mechanical Ventilator 10/12/16 20:00 Mechanical Ventilator 30 10/12/16 20:00 30 10/12/16 19:00 106 17 138/73 95 Mechanical Ventilator 10/12/16 18:58 107 18 112/77 96 Mechanical Ventilator 10/12/16 18:28 110 21 139/75 95 Mechanical Ventilator 10/12/16 18:00 125 18 156/80 95 Mechanical Ventilator 10/12/16 17:59 127 24 110/88 94 Mechanical Ventilator 10/12/16 17:28 117 16 112/78 100 Mechanical Ventilator 10/12/16 17:00 125 23 146/71 95 Mechanical Ventilator 10/12/16 16:58 119 18 121/82 95 Mechanical Ventilator 10/12/16 16:28 121 21 119/91 95 Mechanical Ventilator Physical Exam General Appearance: no apparent distress, + cachetic, + thin Neck: no JVD Respiratory/Chest: no respiratory distress, no accessory muscle use, + rhonchi (coarse throughout), + pertinent finding (mechanical ventilator) Cardiovascular: + tachycardia, + normal peripheral pulses Abdomen: normal bowel sounds, soft Neurologic/Psychiatric: + pertinent finding (obtunded, no purposeful movement or response) Laboratory Results Last 24 Hours Test 10/12/16 18:24 10/12/16 23:44 Bedside Glucose 149 mg/dl Bedside Glucose (other) 245 mg/dl Assessment and Plan Problem list: Acute hypercapnic respiratory failure Respiratory acidosis Pneumonia COPD exacerbation Elevated troponin Cardiomyopathy Prolonged QT interval Multiple Sclerosis Rectal prolapse Decubitus on back Malnutrition, low BMI Goals of care (Z51.5) Palliative care plan: Per patient's family and with the agreement of Dr. Stover. Patient to be comfort measures only. Will be terminally extubated once the rest of the patient 's family arrives, per her , Sidney's, wish. Patient has PRN morphine and lorazepam, would continue this. Uncertain of discharge planning at this time, will depend on patient's clinical course after extubation. Thank you kindly for this consult. I will follow as needed. Palliative Performance Scale: 10 % Continued [facility] stay due to: multiple IV medications needed, home environment unsafe for pt Discharge planning: uncertain
[2016-10-13] MEDS ORDERED: SCOPOLAMINE 1.5 MG TDSY TD SCH (17:00)
--- NOTE | 2016-10-13 19:09 | Progress Note ---
Medicine Progress Note Date & Time of Visit: Oct 13, 2016 at 19:04. Subjective Patient seen. Family at bedside. Terminally extubated this morning. Comfort measures only at this time. Objective Last 8 Hrs Date Time Temp Pulse Resp B/P Pulse Ox O2 Delivery O2 Flow Rate FiO2 10/13/16 18:42 36.3 131 24 100 2.0 10/13/16 16:00 Nasal Cannula 2.0 10/13/16 16:00 36.3 131 24 128/83 100 Nasal Cannula 2.0 10/13/16 14:00 135 24 153/76 99 Mechanical Ventilator 122/85 10/13/16 12:00 30 10/13/16 12:00 Mechanical Ventilator 30 10/13/16 12:00 37.0 120 18 102/60 98 Mechanical Ventilator 98/66 Physical Exam: General-unresponsive; agonal breathing Laboratory Results: Last 24 Hours Test 10/12/16 23:44 Bedside Glucose (other) 245 mg/dl Assessment & Plan Patient was terminally extubated this morning. Patient is comfort measures only at this time. Code status is DNR. Morphine, Ativan and Scopolamine patch ordered. No vitals, no blood draws. Continued [facility] stay due to: multiple IV medications needed, home environment unsafe for pt Discharge planning: uncertain Consultants: Cardio Machine Buffer Current Inpatient Medications: Current Inpatient Medications Medications (Trade) Dose Ordered Sig/Rajan Route Start Time Stop Time Status Last Admin Dose Admin Morphine Sulfate 4 mg 4 mg Q15M PRN IV 10/13/16 04:30 10/27/16 04:29 10/13/16 18:22 4 MG Lorazepam/Syringe (Ativan Inj/ Syringe) 1 ml @ 1 mls/min Q15M PRN IV 10/13/16 04:30 11/12/16 04:29 Lorazepam (Ativan Inj) 1 mg Q15M PRN IV 10/13/16 04:45 11/12/16 04:44 10/13/16 06:05 1 MG Scopolamine (Transderm-Scop Patch) 1.5 mg Q72H TD 10/13/16 17:00 11/12/16 16:59 10/13/16 17:15 1.5 MG Miscellaneous (Remove Transderm-Scop Patch) 1 ea Q72H N/A 10/16/16 16:59 11/15/16 16:58 Miscellaneous Information (Check Scopolamine Patch Placement) 1 ea QS N/A 10/14/16 00:00 11/13/16 00:00
[2016-10-14] MEDS ORDERED: CHECK SCOPOLAMINE PATCH PLACEMENT SCH
[2016-10-14] MEDS: MoRPHine SULFATE 2 MG/ML CARP IV PRN ×4 (00:57→05:06)
--- NOTE | 2016-10-14 07:59 | Progress Note ---
Progress Note Nursing staff noted cessation of breathing at 07:28am. This aligner typewriter was paged. Upon presentation to the bedside, patient was noted to be unresponsive and did not respond to verbal or physical stimuli. Pupils were fixed and dilated. Heart and breath sounds were absent upon auscultation. No pulse was palpable. Patient was pronounced at 07:35am. Family was present at bedside. Family declined autopsy.
--- NOTE | 2016-10-14 08:24 | Discharge Summary ---
Discharge Summary Admission Date: Oct 08, 2016 at 11:22 Discharge Date: Oct 14, 2016 Discharge Disposition: Principal Diagnosis: Multilobar pneumonia Influenza Secondary Diagnoses/Problems: Stress induced cardiomyopathy Procedures: LE Venous doppler There is no sonographic evidence of deep venous thrombosis identified within the visualized vessels of the right or left lower extremity. CT chest 1. No CT evidence of acute pulmonary embolism 2. Moderately severe emphysema with stable bilateral parenchymal opacities, likely representing areas of scarring/chronic inflammation 3. Small bilateral pleural effusions 4. Trace perihepatic fluid 5. Nonobstructing left renal calculus 6. Anasarca 7. Areas of bronchial wall thickening and mucous plugging. CT head 1. Inflammatory changes within the left maxillary and ethmoid sinuses 2. No acute intracranial findings. No evidence of acute intracranial hemorrhage TTE * The study was performed on and urgent basis in the ICU, Bed 108 due to ventilator dependent respiratory failure, and elevted troponin I. * Sinus tachycardia at 125 bpm was present during the echocardiogram study. * There is diffuse left ventricular hypokinesis to akinesis at the mid and apical levels with comparative sparing of the basal segments. * Left ventricular systolic function is severely reduced. * The qualitative left ventricular Ejection Fraction = 20-25%. * The right ventricle is normal in size and function. * There is mild tricuspid regurgitation. * The calculated pulmonary artery systolic pressure is normal, 35 mm Hg. * There is no evidence of atrial septal defect, but resolution does not allow assessment for a patent foramen ovale. * Compared to the prior study dated 07/04/15, there has been and interval decline in the LV systolic function. 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 Consultations: Cardiology Tray Server General surgery Palliative care Admission Information HPI (per Admitting provider): 51 year old female who presents to the ER with shortness of breath. History is unobtainable from the patient as she is currently intubated and sedated. Per ER documentation, patient presented to the ER in respiratory distress via EMS on Bi[facility] Per patient's , she has had several sick contacts recently. Upon arrival to the ER, patient was found to be in respiratory distress and ABG showed respiratory acidosis. CXR showed a multifocal pneumonia. Patient was eventually intubated. She was treated with Levaquin, solu-medrol, and neb. She was also tachycardic in the 160s and was given Cardizem 10mg IV. Troponin is found to be 8. EKG shows more pronounced t-wave inversions inferiorly. Physical Exam (per Admitting): General Appearance: no apparent distress, + pertinent finding (intubated and sedated) Head: normocephalic Eyes: normal inspection Neck: supple, no JVD Respiratory/Chest: + rhonchi, + pertinent finding (intubated) Cardiovascular: regular rate, rhythm, no edema, normal peripheral pulses Abdomen/GI: + abnormal bowel sounds (hypoactive), + distended (semi firm) Extremities/Musculoskelatal: normal inspection, no calf tenderness Neurologic/Psych: + pertinent finding (sedated) Skin: normal color, warm/dry Hospital Course Patient was admitted to the ICU with sepsis and acute hypercapnic respiratory failure. This was felt to be likely 2/2 multilobar pneumonia and influenza. After much discussion with the patient's family in the ED regarding patient's code status, the patient was intubated. Patient received broad spectrum antibiotics with Vancomycin, Zosyn and Doxycycline. She also received Tamiflu. Patient was noted to have an elevated troponin on admission and ST depression in the lateral leads on EKG. Cardiology was consulted. This was felt likely to be 2/2 hypoxemia from her acute respiratory illness. TTE showed depressed LVEF, confirming a likely stress induced cardiomyopathy. Patient was started on a diltiazem drip to help reduce heart rate as well as a heparin drip for 48 hours given patient's risk factors for underlying CAD. General surgery was consulted for rectal prolapse and recommended trying to avoid drying out of the mucosa with the application of Vaseline. The patient remained difficult to arouse during her ICU course and was unable to be weaned off the ventilator. Discussions were had with the patient's family regarding tracheostomy and PEG tube placement, who expressed that patient would never want such measures taken. Palliative care was consulted. The family ultimately decided upon comfort care measures and patient was terminally extubated on 10/13/16 and on 10/14/16. Family remained ever present at bedside. PE on discharge: General- unresponsive Eyes- pupils fixed and dilated ENT- copious oral secretions Lungs- no appreciable breath sounds Heart- no appreciable heart sounds Skin- ashen . Total time spent on discharge = This includes examination of the patient, discharge planning, medication reconciliation, and communication with other providers. Discharge Instructions None as patient . Additional Copies To Mich Vee M.D.
[2016-10-14] MEDS ORDERED: MIDAZOLAM HCL 5 MG/ML 1 ML VIAL IV ONE (09:18)
[2016-10-14] MEDS ORDERED: FENTANYL CITRATE INJ 50 MCG/1 ML 2 ML VIAL IV ONE (09:18)
[2016-10-14] MEDS ORDERED: SODIUM CHLORIDE 0.9% INJ 10 ML VIAL IV ONE (09:18)
[2016-10-14] MEDS ORDERED: VECURONIUM BROMIDE 10 MG VIAL IV ONE (09:18)
== END 2016-10-14 09:19 | disposition expired | DRG 870 ==
LOC: ENRESERVDT → ENRESERVTM → EDUNIT# 09:52 → EDBD 09:57 → C.EDB 09:57 → EDBD 11:22 → UNDOADMIN 11:22 → C.MSICU 11:22 → C.4E 10-13 18:23
PROVIDERS: ADMIT Internal Medicine; ATTEND Internal Medicine
PROC: 0BH17EZ Insertion of Endotracheal Airway into Trachea, Via Natural or Artificial Opening (ICD-10-PCS; principal; 2016-10-08)
PROC: 5A1955Z Respiratory Ventilation, Greater than 96 Consecutive Hours (ICD-10-PCS; 2016-10-08)
DX: A41.9 Sepsis, unspecified organism (principal); J18.9 Pneumonia, unspecified organism; J96.01 Acute respiratory failure with hypoxia; J44.1 Chronic obstructive pulmonary disease with (acute) exacerbation; J44.0 Chronic obstructive pulmonary disease with (acute) lower respiratory infection; I51.81 Takotsubo syndrome; R65.20 Severe sepsis without septic shock; K62.3 Rectal prolapse; G35 Multiple sclerosis; I10 Essential (primary) hypertension; Z51.5 Encounter for palliative care; Z66 Do not resuscitate; Z79.899 Other long term (current) drug therapy; F17.210 Nicotine dependence, cigarettes, uncomplicated